=== PATIENT | male | born 1960 | race Caucasian/White ===

== ENCOUNTER → 2017-09-10 13:33 | Outpatient (CLI) | payer OTHER, SELFPAY ==
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
[2017-09-10 14:23] LABS: Basophils % 0.3 % (0.1-2.0); Eosinophils # 0.1 K/mm3 (0.0-0.4); Eosinophils % 1.9 % (0.1-12.0); Hematocrit 40.2 % (42.0-52.0); Hemoglobin 13.1 g/dL (14.1-18.0); Lymphocytes # 1.2 K/mm3 (0.7-4.5); Lymphocytes % 30.7 K/mm3 (10-50); Mean Corpuscular HGB Conc 32.5 g/dL (31.8-35.4); Mean Corpuscular Hemoglobin 28.7 pg (27.0-31.2); Mean Corpuscular Volume 88.4 fl (80-94); Mean Platelet Volume 7.2 fl (7.4-10.4); Monocytes # 0.2 K/mm3 (0.1-1.0); Monocytes % 6.4 % (1.7-9.3); Neutrophils # 2.3 K/mm3 (1.8-7.8); Neutrophils % 60.8 % (37.0-80.0); Platelet Count 185 K/mm3 (142-424); Red Blood Count 4.55 M/mm3 (4.60-6.20); Red Cell Distribution Width 12.9 % (11.5-17.5); White Blood Count 3.8 K/mm3 (4.8-10.8)
[2017-09-10 16:15] LABS: Anion Gap 13.1 mEq/L (5-15); Blood Urea Nitrogen 21 mg/dL (7-18); Carbon Dioxide 27 mmol/L (21.0-32.0); Chloride 106 mmol/L (98-107); Creatinine,Serum 0.85 mg/dL (0.70-1.30); Estimated Glomerular Filt Rate 93 ml/min (>60); GFR (African American) 113 ML/MIN (>60); Glucose 107 mg/dL (74-106); Potassium 4.1 mmoL/L (3.5-5.1); Sodium 142 mmol/L (136-145)
== END ==
PROVIDERS: Visit Provider Orthopaedic Surgery
DX: Z01.818 Encounter for other preprocedural examination (principal); S46.212A Strain of muscle, fascia and tendon of other parts of biceps, left arm, initial encounter; M25.512 Pain in left shoulder
CPT/HCPCS: 36415; 71046; 80048; 85025

== ENCOUNTER → 2017-11-15 09:29 | Outpatient (CLI) | payer OTHER, BC, SELFPAY ==
--- NOTE | 2017-11-15 09:31 | XR_ITS ---
XR shoulder LT min 2V Ordering Physician: William Jacob MD Patient Age: 57 years: Male HISTORY: ITS.REASON: S/P LEFT SHOULDER ARTHROSCOPY TECHNIQUE: 2 view left shoulder: Y view and Zanca view COMPARISON :01/16/2017 & March 2014 FINDINGS The clavicle is intact. The humeral head unremarkable on this view. There is a generous width of the AC joint it measures over 13-14 mm on today's view . Mild superior hypertrophy lipping from distal aspect of clavicle. The Y view shows normal glenohumeral relationships with scapula intact. Atelectasis likely accounts for accentuated markings at left lung base. IMPRESSION: A generous width of the AC joint. It measures 13-14 mm. Clavicle intact.
== END ==
PROVIDERS: Visit Provider Orthopaedic Surgery
DX: Z98.890 Other specified postprocedural states (principal); Z47.89 Encounter for other orthopedic aftercare
CPT/HCPCS: 73030

== ENCOUNTER 2018-07-17 07:00 | Outpatient (RCR) | payer OTHER, SELFPAY ==
--- NOTE | 2017-11-21 14:46 | HMH.OTOPEV ---
OT Inpatient Evaluation Rehab OT Outpatient Eval Start: 11/21/17 14:29 Freq: Status: Active Protocol: Document 11/21/17 14:30 TFRY (Rec: 11/21/17 14:45 TFRY [id number]) Electronically Signed By Patito Riojas OT 11/21/17 14:30 Outpatient Therapy Subjective History Subjective History THIS IS A 57 YEAR OLD RIGHT HANDED MALE REFERRED TO OCCUPATIONAL THERAPY PATIENT IS STATUS POST LEFT SHOULDER SUBACROMIAL DECOMPRESSION DISTAL CLAVICLE RESECTION AND BICEPS TENODESIS . PATIENT ORGINALLY INJURIED HIS SHOULDERON MARCH 05, 2014 AT WORK. PATIENT HAD SURGERY ON OCTOBER 01, 2017. Chief Complaint Pain Symptom Type Sharp Symptoms Relieved By Rest/Positioning Symptoms Aggravated By Physical Activity Prior Functional Limitations None Current Functional Limitations Dressing Sleeping Symptom Description Activity Dependent Level of pain today (0-10) 2 Pain scale - at its best (0-10) 0 Pain scale - at its worst (0-10) 10 Shoulder/Elbow Eval Shoulder Objective Measurements Palpation Tenderness tenderness shoulder exam standard left Shoulder Palpation Findings Tenderness Shoulder ROM Left Shoulder ROM Limitations Pain Shoulder Abduction Active Range of 60 Motion (degrees) Shoulder Abduction Passive Range of 65 Motion (degrees) Shoulder Flexion Active Range of Motion 90 (degrees) Query Text: Shoulder Flexion Passive Range of Motion 95 (degrees) Shoulder External Rotation Active Range 10 of Motion (degrees) Shoulder External Rotation Passive Range 15 of Motion (degrees) Shoulder Internal Rotation Active Range WFL of Motion (degrees) Shoulder Internal Rotation Passive Range WFL of Motion (degrees) pain with active ROM shoulder exam left standard pain with passive ROM shoulder exam left standard decreased ROM shoulder exam standard left Shoulder MMT Shoulder Strength Reason Not Measured Orthopedic Precautions Elbow Objective Measurements OT Outpatient Assessment Impairments Problems/Impairments Impaired Range of Motion Impaired Strength Impaired Dressing Subjective C/O Pain Prognosis Rehab Potential Good Clinical Impression Consistent with Diagnosis
--- NOTE | 2018-04-22 08:08 | HMH.RHREAS ---
Rehab Reassessment Rehab OP Re-assessment Start: 02/18/18 07:08 Freq: Status: Active Protocol: Document 04/22/18 07:06 TFRY (Rec: 04/22/18 08:08 TFRY [id number]) Electronically Signed By Patito Riojas OT 04/22/18 07:06 Rehab Re-assessment Subjective Subjective I STILL CAN'T SLEEP ON IT. Objective Objective Notes LEFT SHOULDER AROM - FLEXION - 0-130 ABDUCTION - 0-130 EXT. ROTATION - 0-50 INT. ROTATION - 0-65 LEFT SHOULDER PROM - FLEXION - 0-160 ABDUCTION - 0-130 EXT. ROTATION - 0-50 INT. ROTATION - 0-65 STRENGTH - LEFT SHOULDER - 3+/ 5 THROUGHOUT PAIN - PRESENTLY - 2; WORSE - 5/6 WITH CERTAIN MOVEMENTS REPORTS INDEPENDENCE WITH ADL' S Assessment Progress Assessment Progressing as Expected Assessment Notes ROM AND STRENGTH CONTINUE TO IMPROVE. Patient goals met STG'S - 6/7 LTG'S - 4/8 Goals Not Met AROM AND STRENGTH Revised Goals CONTINUE TO WORK ON IMPROVING AROM AND STRENGTH WHILE DECREASING PAIN IN LEFT SHOULDER Plan Plan CONTINUE OT WORKING ON UNMET GOALS Frequency of Therapy 2X A WEEK Duration of therapy 10 WEEKS Time and Billing Re-Eval Time 5 Re-Eval Billing Units 0 PHYSICIAN CERTIFICATION: I certify the specified therapy services for Laith Rodriguez are required, authorized, and reviewed every 30 days.
--- NOTE | 2018-06-24 08:51 | HMH.RHREAS ---
Rehab Reassessment Rehab OP Re-assessment Start: 02/18/18 07:08 Freq: Status: Active Protocol: Document 06/24/18 08:39 TFRY (Rec: 06/24/18 08:50 TFRY [id number]) Electronically Signed By Patito Riojas OT 06/24/18 08:39 Rehab Re-assessment Subjective Subjective It is getting stronger. Objective Objective Notes LEFT SHOULDER AROM - FLEXION - 0-162 ABDUCTION - 0-160 EXT. ROTATION - 0-55 INT. ROTATION - 0-75 LEFT SHOULDER PROM - FLEXION - 0-165 ABDUCTION - 0-165 EXT. ROTATION - 0-60 INT. ROTATION - 0-75 STRENGTH - LEFT SHOULDER - 4/5 THROUGHOUT PAIN - PRESENTLY - 2; WORSE - 5 WITH CERTAIN MOVEMENTS REPORTS INDEPENDENCE WITH ADL' S Assessment Progress Assessment Progressing as Expected Assessment Notes Increasing with strengthening exercises Patient goals met STG's - 6 out of 7 LTG's - 6 out of 7 Goals Not Met pain goals Revised Goals Patient to increase left shoulder strength to 5/5 throughout. Plan Plan Continue to work on increasing with strengthening left shoulder Frequency of Therapy 2x a week Duration of therapy 6 weeks Time and Billing Re-Eval Time 5 Re-Eval Billing Units 0 PHYSICIAN CERTIFICATION: I certify the specified therapy services for Laith Rodriguez are required, authorized, and reviewed every 30 days.
== END 2018-07-17 07:05 | disposition home or self-care (01) ==
LOC: OT 07:00
PROVIDERS: Family Provider Orthopaedic Surgery; PCP Orthopaedic Surgery; Visit Provider Orthopaedic Surgery
DX: Z47.89 Encounter for other orthopedic aftercare (principal); M25.512 Pain in left shoulder
CPT/HCPCS: 97014; 97110; 97140; 97164; 97165; G0283

== ENCOUNTER → 2018-07-17 08:08 | Outpatient (CLI) | payer OTHER, SELFPAY ==
--- NOTE | 2018-07-17 08:15 | XR_ITS ---
XR shoulder LT min 2V HISTORY: Left shoulder pain. Prior shoulder surgery ITS.REASON: grashy, axillary and supraspinatus views ORDERING PHYSICIAN: Bob Mitchell MD PATIENT AGE: 57 years Comparison: 11/15/2017 FINDINGS: There are mild hypertrophic changes at the acromioclavicular joint. No fracture or dislocation. Glenohumeral joint is unremarkable. A lucency is noted at the proximal shaft of the humerus at 7 mm and could be related to bicipital tendon transfer. Please correlate with surgical history. IMPRESSION: Mild osteoarthritic change at the AC joint otherwise negative
== END ==
PROVIDERS: PCP Emergency Medicine; Visit Provider Orthopaedic Surgery
DX: Z47.89 Encounter for other orthopedic aftercare (principal); M25.512 Pain in left shoulder
CPT/HCPCS: 73030

== ENCOUNTER → 2019-01-20 18:00 | Outpatient (CLI) | payer BC, SELFPAY | PROVIDERS: Visit Provider Podiatrist | DX: L60.8 Other nail disorders (principal) | CPT/HCPCS: 87102; 87206; 87220 ==

== ENCOUNTER 2019-01-28 13:53 | Outpatient (RCR) | payer BC, SELFPAY | END 2019-01-28 14:05 | disposition home or self-care (01) | LOC: OT 13:53 | PROVIDERS: Visit Provider Orthopaedic Surgery | DX: G56.02 Carpal tunnel syndrome, left upper limb (principal) | CPT/HCPCS: 97763 ==

== ENCOUNTER → 2019-02-16 13:16 | Outpatient (POV) | payer BC, SELFPAY | PROVIDERS: Visit Provider Specialist | DX: M79.642 Pain in left hand (principal); M79.641 Pain in right hand; R20.2 Paresthesia of skin | CPT/HCPCS: 95886; 95908 ==

== ENCOUNTER → 2019-05-26 13:06 | Outpatient (CLI) | payer OTHER, SELFPAY ==
--- NOTE | 2019-05-26 13:10 | XR_ITS ---
PROCEDURE: XR SHOULDER LT MIN 2V CLINICAL INDICATION: left shoulder pain COMPARISON: SHOU3L [id number] VIEWS from 03/12/2014 SHOU3L [id number] VIEWS from 01/16/2017 SHOULDCMLT XR shoulder LT min 2V from 11/15/2017 SHOULDCMLT XR shoulder LT min 2V from 07/17/2018 FINDINGS: There is no acute fracture dislocation or other focal bony lesion. Joint spaces are preserved. IMPRESSION: No acute findings. Dictated by: Ge Dobbs 05/26/2019 15:55 Electronically signed by Ge Dobbs in [place] 05/26/2019 15:55
== END ==
PROVIDERS: PCP Family Medicine; Visit Provider Orthopaedic Surgery
DX: M25.612 Stiffness of left shoulder, not elsewhere classified (principal)
CPT/HCPCS: 73030

== ENCOUNTER 2020-01-29 13:05 | Emergency (ER) | payer OTHER, SELFPAY ==
[2020-01-29 13:15] VITALS: BP 125/68; PULSE 70; RESP 19; TEMP 36.6; O2SAT 99; BMI 25.9
[2020-01-29 13:17] VITALS: BP 125/68; PULSE 70; RESP 19; TEMP 36.6; O2SAT 99; BMI 25.9
--- NOTE | 2020-01-29 13:26 | HMH.EDUTC ---
[facility] [place] Clinical Impression: Dog bite of right lower leg Qualifiers: Encounter type: initial encounter Qualified Code(s): S81.851A - Open bite, right lower leg, initial encounter Disposition: Home, Self-Care Condition on Discharge: Good Instructions: Animal Bites, DI for Dog Bite Additional Instructions: Keep the wounds clean and dry. Follow up with your regular doctor. Take the antibiotics as directed and apply the topical antibiotics as directed. Make sure you stay in contact with the health department regarding the health of the dog. Watch the puncture wounds for signs of worsening infection, such as worsening redness, drainage, swelling, etc. GO TO THE ER FOR ANY WORSENING SYMPTOMS Prescriptions: Sulfamethoxazole/Trimethoprim [Bactrim DS tablet] 1 each PO BID 10 Days #20 tab Transmission Status: Received by [facility] Mupirocin [Bactroban 2% Ointment 22gm tube] 1 applicatio TP TID 7 Days #1 tube Transmission Status: Received by [facility] clindamycin HCL [Clindamycin HCl 300mg Cap] 300 mg PO Q8 10 Days #30 cap Transmission Status: Received by [facility] Referrals: Jose Leavitt MD [Primary Care Provider] - Forms: Work/School Release Time of Disposition: 13:32 Medical Decision Making - Medical Records Medical records reviewed: No: I reviewed the patient's medical records. - Eliezer Inquiry Pt receiving controlled substance: No Vital Signs: 01/29/20 13:15 01/29/20 13:17 01/29/20 13:43 Temperature 97.9 F 97.9 F 97.9 F Temperature Source Oral Oral Oral Pulse Rate 70 Pulse Rate [Left Radial] 70 70 Respiratory Rate 19 19 19 Blood Pressure 125/68 Blood Pressure [Right Arm] 125/68 125/68 Blood Pressure Mean [Right Arm] 87 87 Blood Pressure Source Automatic Cuff Blood Pressure Source [Right Arm] Automatic Cuff Automatic Cuff Blood Pressure Position Sitting Blood Pressure Position [Right Arm] Sitting Sitting 02 Sat by Pulse Oximetry 99 99 Oxygen Delivery Method Room Air Room Air Room Air [facility] [place] HPI - General Stated complaint: [id number] dog bite right leg Time Seen by Provider: 01/29/20 13:26 Mode of Arrival: Ambulatory Source of Information: Patient Limitations: No Limitations Description of Symptoms (Recalled from Triage Doc. by RN): c/o dog bite on right leg. 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 He states that he was bit on the right lower leg. His tetanus immunization is up to date. - Related Data Home Medications Medication Instructions Recorded Confirmed coenzyme Q10 50 mg capsule 50 mg PO DAILY 06/18/17 07/08/19 multivitamin,[id number] 1 tab PO DAILY 06/18/17 07/08/19 magnesium oxide 400 mg PO DAILY cap 09/10/17 07/08/19 apixaban 5 mg tablet 5 mg PO #180 tab 01/20/19 07/08/19 flecainide 50 mg tablet 50 mg PO #90 tab 01/20/19 07/08/19 omega-3 fatty acids 500 mg capsule 500 mg PO DAILY 01/20/19 07/08/19 pantoprazole 40 mg tablet,delayed PO #90 tab 01/20/19 07/08/19 release metoprolol tartrate 25 mg tablet 25 mg PO DAILY 07/08/19 07/08/19 Previous Rx's Medication Instructions Recorded Mupirocin [Bactroban 2% Ointment 1 applicatio TP TID 7 Days #1 tube 01/29/20 22gm tube] Sulfamethoxazole/Trimethoprim 1 each PO BID 10 Days #20 tab 01/29/20 [Bactrim DS tablet] clindamycin HCL [Clindamycin HCl 300 mg PO Q8 10 Days #30 cap 01/29/20 300mg Cap] Allergies Allergy/AdvReac Type Severity Reaction Status Date / Time Penicillins Allergy Unknown SWELLING Verified 05/26/19 14:45 OF HANDS & FEET hydrocodone [From Lort
[2020-01-29 13:43] VITALS: BP 125/68; PULSE 70; RESP 19; TEMP 36.6; O2SAT 99
== END 2020-01-29 13:43 | disposition home or self-care (01) ==
PROVIDERS: Emergency Provider Nurse Practitioner Family; PCP Family Medicine
DX: S81.851A Open bite, right lower leg, initial encounter (principal); W54.0XXA Bitten by dog, initial encounter; Y92.69 Other specified industrial and construction area as the place of occurrence of the external cause; Y99.0 Civilian activity done for income or pay
CPT/HCPCS: 99201

== ENCOUNTER 2020-02-05 16:46 | Emergency (ER) | payer OTHER, SELFPAY ==
[2020-02-05 17:10] VITALS: BP 138/87; PULSE 66; RESP 14; TEMP 36.9; O2SAT 99; BMI 25.9
--- NOTE | 2020-02-05 17:22 | HMH.EDUTC ---
[facility] [place]ression: Dog bite of right lower leg Qualifiers: Encounter type: subsequent encounter Qualified Code(s): S81.851D - Open bite, right lower leg, subsequent encounter Cellulitis of lower extremity Qualifiers: Laterality: right Qualified Code(s): L03.115 - Cellulitis of right lower limb Disposition: Home, Self-Care Condition on Discharge: Good Additional Instructions: Keep the wounds clean and dry. Follow up with your regular doctor. Stop the oral bactrim (sulfamethazole/trimethaprim) and start the doxycycline. Continue to take the clindamycin and continue to apply the mupirocin (bactroban) topically. Make sure you stay in contact with the health department regarding the health of the dog. Watch the puncture wounds for signs of worsening infection, such as worsening redness, drainage, swelling, etc. GO TO THE ER FOR ANY WORSENING SYMPTOMS Prescriptions: Doxycycline Hyclate [Doxycycline 100mg Capsule] 100 mg PO Q12 10 Days #20 cap Transmission Status: Received by [facility] Referrals: Gorge Leavitt [facility] [Primary Care Provider] - Forms: Work/School Release Time of Disposition: 17:46 Medical Decision Making - Medical Records Medical records reviewed: No: I reviewed the patient's medical records. - Eliezer Inquiry Pt receiving controlled substance: No Vital Signs: 02/05/20 17:10 02/05/20 17:59 Temperature 98.4 F 98.4 F Temperature Source Oral Oral Pulse Rate 66 Pulse Rate [Radial] 66 Respiratory Rate 14 14 Blood Pressure 138/87 Blood Pressure [Right Arm] 138/87 Blood Pressure Mean [Right Arm] 104 Blood Pressure Source Automatic Cuff Blood Pressure Source [Right Arm] Automatic Cuff Blood Pressure Position Sitting Blood Pressure Position [Right Arm] Sitting 02 Sat by Pulse Oximetry 99 Oxygen Delivery Method Room Air Room Air Orders (Tests/Meds): ORDERS Category Date Time Status Wound Culture and Gram Stain Stat Micro 02/05/20 17:47 Results [facility] [place] - General Stated complaint: WC [id number]@1200 injuredR Leg dog bite Time Seen by Provider: 02/05/20 17:22 Mode of Arrival: Ambulatory Source of Information: Patient Limitations: No Limitations Description of Symptoms (Recalled from Triage Doc. by RN): follow up on dog bite HEENT Symptoms (Recalled from RN notes): No Resp Symptoms (Recalled from RN notes): No Skin Symptoms (Recalled from RN notes): Yes MS Symptoms (Recalled from RN notes): No Functional Status (Recalled from RN notes): wnl - History of Present Illness Provider Complaint: He is back to have the dog bite checked. He states that it is getting red around the site. He states that he has been taking the medication as prescribed. He denies any fever or chills. - Related Data Home Medications Medication Instructions Recorded Confirmed coenzyme Q10 50 mg capsule 50 mg PO DAILY 06/18/17 07/08/19 multivitamin,eq-zjdh-[id number] 1 tab PO DAILY 06/18/17 07/08/19 magnesium oxide 400 mg PO DAILY cap 09/10/17 07/08/19 apixaban 5 mg tablet 5 mg PO #180 tab 01/20/19 07/08/19 flecainide 50 mg tablet 50 mg PO #90 tab 01/20/19 07/08/19 omega-3 fatty acids 500 mg capsule 500 mg PO DAILY 01/20/19 07/08/19 pantoprazole 40 mg tablet,delayed PO #90 tab 01/20/19 07/08/19 release metoprolol tartrate 25 mg tablet 25 mg PO DAILY 07/08/19 07/08/19 Previous Rx's Medication Instructions Recorded Mupirocin [Bactroban 2% Ointment 1 applicatio TP TID 7 Days #1 tube 01/29/20 22gm tube] Sulfamethoxazole/Trimethoprim 1 each PO BID 10 Days #20 tab 01/29/20 [Bactrim DS tablet] clindamycin HCL [Clindamycin HCl 300 mg PO Q8 10 Days #30 cap 01/29/20 300mg Cap] Doxycycline Hyclate [Doxycycline 100 mg PO Q12 10 Days #20 cap 02/05/20 100mg Capsule] Allergies Allergy/AdvReac Type Severity Reaction Status Date / Time Penicillins Allergy Unknown SWELLING Verified 05/26/19 14:45 OF HANDS & FEET
[2020-02-05 17:59] VITALS: BP 138/87; PULSE 66; RESP 14; TEMP 36.9; O2SAT 99
== END 2020-02-05 18:00 | disposition home or self-care (01) ==
PROVIDERS: Emergency Provider Nurse Practitioner Family; PCP Family Medicine
DX: L03.115 Cellulitis of right lower limb (principal); S81.851D Open bite, right lower leg, subsequent encounter; I48.20 Chronic atrial fibrillation, unspecified; E03.9 Hypothyroidism, unspecified; K21.9 Gastro-esophageal reflux disease without esophagitis; F41.8 Other specified anxiety disorders; Z87.891 Personal history of nicotine dependence; Z79.899 Other long term (current) drug therapy
CPT/HCPCS: 87070; 87077; 87186; 87205; 99201

== ENCOUNTER 2020-10-15 21:59 | Emergency (ER) | payer OTHER, SELFPAY ==
[2020-10-15 22:20] VITALS: BP 144/90; PULSE 72; RESP 18; TEMP 36.8; O2SAT 96; BMI 25.6
[2020-10-15 22:24] VITALS: BMI 25.6
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
--- NOTE | 2020-10-15 22:30 | PC.NURSE ---
pt gone to radiology.
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
[2020-10-15 23:13] VITALS: BP 139/81; PULSE 72; RESP 18; TEMP 36.8; O2SAT 96
== END 2020-10-15 23:18 | disposition home or self-care (01) ==
PROVIDERS: Emergency Provider Emergency Medicine; PCP Family Medicine
DX: S16.1XXA Strain of muscle, fascia and tendon at neck level, initial encounter (principal); G44.319 Acute post-traumatic headache, not intractable; V53.5XXA Driver of pick-up truck or van injured in collision with car, pick-up truck or van in traffic accident, initial encounter; Y92.414 Local residential or business street as the place of occurrence of the external cause
CPT/HCPCS: 70450; 72125; 99282

== ENCOUNTER → 2020-11-28 07:02 | Outpatient (CLI) | payer BC, SELFPAY | DX: Z20.822 Contact with and (suspected) exposure to COVID-19 (principal) | CPT/HCPCS: U0003 ==

== ENCOUNTER → 2021-02-02 09:02 | Outpatient (CLI) | payer OTHER, SELFPAY ==
--- NOTE | 2021-02-02 09:15 | CA_ITS ---
APPROVED REPORT Clinical Services Consultant: CT Laterality: Bilateral Indications: tinnitus Doppler Spectral Velocity Analysis ECA (R) 120.10/ cm/s ECA (L) 132.80/ cm/s dICA (R) 71.60/32.10 cm/s dICA (L) 58.60/25.00 cm/s Pool (R) 70.00/33.70 cm/s Pool (L) 51.90/18.70 cm/s pICA (R) 55.10/21.40 cm/s pICA (L) 64.70/18.70 cm/s dCCA (R) 75.10/21.20 cm/s dCCA (L) 94.30/21.70 cm/s pCCA (R) 105.90/26.30 cm/s pCCA (L) 108.50/29.90 cm/s Vert (R) 64.20/ cm/s Vert (L) 57.40/ cm/s ICA/CCA 1.00 ICA/CCA 0.70 Findings Duplex evaluation demonstrates stenosis of the right proximal internal carotid artery <20%. Duplex evaluation demonstrates stenosis of the left proximal internal carotid artery <20%. Duplex evaluation demonstrates antegrade flow of the bilateral Vertebral Arteries. Conclusion Duplex evaluation demonstrates stenosis of the right proximal internal carotid artery <20%. Duplex evaluation demonstrates stenosis of the left proximal internal carotid artery <20%. Duplex evaluation demonstrates antegrade flow of the bilateral Vertebral Arteries. Electronically signed by : Jamil Barkley MD 02/02/2021 16:17:24
== END ==
PROVIDERS: PCP Family Medicine; Visit Provider Family Medicine
DX: H93.13 Tinnitus, bilateral (principal)
CPT/HCPCS: 93880

== ENCOUNTER → 2021-04-07 13:51 | Outpatient (CLI) | payer BC, SELFPAY ==
--- NOTE | 2021-04-07 13:56 | XR_ITS ---
PROCEDURE INFORMATION: Exam: XR Left Knee Exam date and time: 04/07/2021 1:56 PM Age: 60 years old Clinical indication: Pain; Knee; Left; Additional info: Lt knee pain TECHNIQUE: Imaging protocol: XR Left knee. Views: 4 or more views. COMPARISON: No relevant prior studies available. FINDINGS: Bones/joints: Tricompartmental joint space narrowing and osteophyte formation consistent with degenerative changes. Joint space narrowing more severe in the medial compartment and patellofemoral compartment. There is no evidence of acute fracture.There is no evidence of malalignment or dislocation. Soft tissues: Normal. IMPRESSION: 1. Tricompartmental joint space narrowing and osteophyte formation consistent with degenerative changes. Joint space narrowing more severe in the medial compartment and patellofemoral compartment. 2. There is no evidence of acute fracture.There is no evidence of malalignment or dislocation.
== END ==
PROVIDERS: PCP Family Medicine; Visit Provider Orthopaedic Surgery
DX: M25.562 Pain in left knee (principal)
CPT/HCPCS: 73564

== ENCOUNTER → 2021-05-03 12:45 | Outpatient (CLI) | payer BC, SELFPAY ==
--- NOTE | 2021-05-03 12:46 | MR_ITS ---
PROCEDURE INFORMATION: Exam: MR Left Lower Extremity Joint Without Contrast, Knee Exam date and time: 05/03/2021 12:46 PM Age: 60 years old Clinical indication: Pain; Knee; Left; Additional info: Lt knee pain TECHNIQUE: Imaging protocol: MR of the Left lower extremity joint without contrast. Exam focused on the knee. COMPARISON: CR XR KNEE LT 4V 04/07/2021 2:25 PM FINDINGS: Bones and cartilage: A protruberant osteophyte along the posterior aspect of the medial tibial plateau near the midline measures 1.6 cm. An adjacent osteochondral body measures 1 cm. There is no acute fracture or dislocation. No aggressive bone lesions are present. A benign bone island is incidentally noted. There is grade IV (out of IV) full-thickness cartilage loss involving a significant portion of the lateral patellar facet extending into the medial patellar facet at the midportion of the patella. This may be due to severe primary osteoarthritis, patellar maltracking, or CPPD arthropathy. There is mild lateral subluxation of the patella. An osteochondral body adjacent to the medial femoral condyle anteriorly measures 5 mm (series 4/image 7). Joint spaces: A moderate joint effusion involves the knee. Periarticular cysts: A small popliteal cyst is present. A small ganglion or synovial cyst decompresses into the anterior compartment of the calf from the tibiofibular joint. Medial meniscus: The medial meniscus shows no evidence of tear. Lateral meniscus: A probable horizontal tear involves the anterior horn of the lateral meniscus. The tear extends to the superior meniscal surface on series 4/image 21. Anterior cruciate ligament: The anterior cruciate ligament is intact. There is a possible additional osteochondral body in the intercondylar notch region located inferior to the anterior cruciate ligament (series 4/image 15). Posterior cruciate ligament: The posterior cruciate ligament is intact. Medial capsule and supporting structures: The medial collateral ligament is intact. Lateral capsule and supporting structures: The lateral collateral ligament complex is intact. Extensor mechanism of knee: Moderate tendinosis involves the quadriceps and patellar tendons. Muscles: Unremarkable. Soft tissues: A moderate amount of edema involves the anterior knee subcutaneous fat. IMPRESSION: 1. Significant grade IV (out of IV) full-thickness cartilage loss involving the lateral patellar facet extending into the medial patellar facet at the midportion of the patella, which may be due to severe primary osteoarthritis, patellar maltracking, or CPPD arthropathy. 2. Probable horizontal tear of the lateral meniscus anterior horn. 3. Intra-articular osteochondral bodies with a prominent protruberant osteophyte along the posterior aspect of the medial tibial plateau. 4. Moderate tendinosis of the quadriceps and patellar tendons.
== END ==
PROVIDERS: PCP Family Medicine; Visit Provider Orthopaedic Surgery
DX: M17.12 Unilateral primary osteoarthritis, left knee (principal); M25.562 Pain in left knee; G89.29 Other chronic pain
CPT/HCPCS: 73721

== ENCOUNTER → 2021-05-10 13:09 | Outpatient (CLI) | payer BC, SELFPAY | PROVIDERS: PCP Family Medicine; Visit Provider Nurse Practitioner | DX: Z20.822 Contact with and (suspected) exposure to COVID-19 (principal) | CPT/HCPCS: C9803; U0003; U0005 ==

== ENCOUNTER 2021-06-01 16:00 | Outpatient (RCR) | payer BC, SELFPAY | END 2021-06-01 16:05 | disposition home or self-care (01) | LOC: PT 16:00 | PROVIDERS: PCP Family Medicine; Visit Provider Orthopaedic Surgery | DX: M17.12 Unilateral primary osteoarthritis, left knee (principal); M23.307 Other meniscus derangements, unspecified meniscus, left knee | CPT/HCPCS: 97110; 97163 ==

== ENCOUNTER → 2021-06-28 16:50 | Outpatient (CLI) | payer BC, SELFPAY ==
[2021-06-28 18:05] LABS: Alanine Aminotransferase 22 U/L (12-78); Albumin Level 4.1 g/dl (3.5-5.0); Albumin/Globulin Ratio 1.6 (1.1-1.8); Alkaline Phosphatase 64 U/L (38-126); Anion Gap 7.4 mEq/L (5-15); Aspartate Amino Transferase 33 U/L (17-59); Bilirubin,Total 0.5 mg/dl (0.2-1.3); Blood Urea Nitrogen 19 mg/dl (9-20); Calcium 8.7 mg/dl (8.4-10.2); Carbon Dioxide 27 mmol/L (22.0-30.0); Chloride 104 mmol/L (98-107); Estimated Glomerular Filt Rate 99 ml/min (>60); GFR (African American) 119 ML/MIN (>60); Globulin 2.6 g/dL (1.3-3.2); Glucose 98 mg/dl (74-100); Potassium 4.4 mmoL/L (3.5-5.1); Sodium 134 mmol/L (136-145); Total Protein,Serum 6.7 g/dl (6.3-8.2)
[2021-06-28 18:17] LABS: Basophils % 0.7 % (0.1-2.0); Eosinophils # 0.1 K/mm3 (0.0-0.4); Eosinophils % 1.2 % (0.1-12.0); Hematocrit 44.7 % (42.0-52.0); Lymphocytes # 1.1 K/mm3 (0.7-4.5); Lymphocytes % 19.7 % (10-50); Mean Corpuscular HGB Conc 33.4 g/dL (31.8-35.4); Mean Corpuscular Hemoglobin 30.1 pg (27.0-31.2); Mean Corpuscular Volume 90.1 fl (80-94); Mean Platelet Volume 7.7 fl (7.4-10.4); Monocytes # 0.4 K/mm3 (0.1-1.0); Monocytes % 7.3 % (1.7-9.3); Neutrophils # 4.1 K/mm3 (1.8-7.8); Neutrophils % 71.2 % (37.0-80.0); Platelet Count 206 K/mm3 (142-424); Red Blood Count 4.97 M/mm3 (4.60-6.20); White Blood Count 5.7 K/mm3 (4.8-10.8)
== END ==
PROVIDERS: PCP Family Medicine; Visit Provider Orthopaedic Surgery
DX: Z01.818 Encounter for other preprocedural examination (principal); M25.562 Pain in left knee
CPT/HCPCS: 80053; 85025

== ENCOUNTER → 2021-06-29 13:02 | Outpatient (CLI) | payer BC, SELFPAY ==
--- NOTE | 2021-06-29 13:10 | ECG_ITS ---
APPROVED REPORT Exam: Resting ECG HR:68 bpm ECG Measurements Heart Rate 68 AXES WV 180 P 90 QRSd 104 QRS 33 QT 383 T 55 QTc 401 Conclusion SINUS RHYTHM NORMAL ECG UNCONFIRMED REPORT Electronically signed by : Dusty Moran MD 06/30/2021 19:22:24
== END ==
PROVIDERS: PCP Family Medicine; Visit Provider Orthopaedic Surgery
DX: Z01.810 Encounter for preprocedural cardiovascular examination (principal); M25.562 Pain in left knee
CPT/HCPCS: 93005

== ENCOUNTER → 2021-07-04 08:46 | Outpatient (CLI) | payer BC, SELFPAY | PROVIDERS: Visit Provider Orthopaedic Surgery | DX: Z01.818 Encounter for other preprocedural examination (principal); Z11.52 Encounter for screening for COVID-19 | CPT/HCPCS: C9803; U0003; U0005 ==

== ENCOUNTER 2021-07-06 10:51 | Day surgery (SDC) | payer BC, SELFPAY ==
[2021-07-03 14:02] VITALS: BMI 25.7
[2021-07-06] VITALS (10 sets, daily range): BP systolic 105–137; BP diastolic 64–101; PULSE 59–71; RESP 14–18; TEMP 36.3–43; O2SAT 94–100
--- NOTE | 2021-07-06 14:48 | P.PN_ITS ---
[facility] Anesthesia Checklist - Patient Identification Patient Identification: Arm Band, Verbal (Name & ) - Structural Data Admitted From: Home Planned Operative Procedure/s: Left Knee Arthroscopy Consent for Planned Operative Procedure(s) Verified: Yes Verified Documents: Surgical Consent - NPO Status Verified Time NPO: 00:00 - Chart Verification Results Verified: CBC, BMP - Additional verifications Anesthesia Reactions: No Hx Blood Transfusions: No Blood Transfusion Reaction: No - Cardiovascular Assessment Heart Sounds: S1 & S2 Pulse Rhythm: Regular - Airway Assessment C-Spine Mobility Assessed: Yes TMJ Mobility Assessed: Yes Dentition: Good Dentition - Anesthesia Plan Anesthesia Risk discussed: Yes ASA Class: III Anesthesia Type: General [facility] History I have reviewed the patient's past medical history: Yes Medical History: Reports:: Anxiety, Atrial Fibrillation, Cancer, Deep Vein Thrombosis, Depression, Gastroesophageal Reflux Disease(GERD) Denies:: Diabetes Mellitus Type 1, Diabetes Mellitus Type 2, Internal Pacemaker, MRSA, Seizures *Have you ever received a pneumonia vaccine?: No *Have you received a flu vaccine this season?: Yes Other Medical History: Reports: Arthritis, Hypothyroidism. Denies: Blood Transfusion Reaction Anesthesia experience/problems:: none Laterality Cases: Left: Arthroscopy Shoulder Other Surgeries: Yes: Cancer Surgery, Cardiac Catheterization, Cardiac Surgery, Colon Resection, Other. No: Pacemaker Amputation: No Fractures: No - *Social History Last grade of school completed: Some college Smoking Status: Former smoker Tobacco Type: cigarettes #Yrs smoked (if former smoker): 15 Smoking End Date: 2010 Alcohol Intake: never Alcohol Intake Frequency:: a few times a month Substance Use Type: denies use *Occupational Status:: employed Housing: house Household Members: spouse *Travel in the last 8 weeks: None - Psychiatric History Pschychiatric History:: Reports:: Anxiety, Depression Family Hx:: Cancer, Hypertension, Stroke
--- NOTE | 2021-07-06 15:57 | HMH.ANESI ---
[facility] Anesthesia Record Part I Intake, IV Amount: 700 Estimated blood loss (mL): 10 Urine output (mL): 0 Blood Pressure: 108/64 SaO2: 94 Pulse Rate: 61 Respiratory Rate: 14 Temperature: 98.8 F Patient is:: Drowsy Stable to PACU at:: 15:56
--- NOTE | 2021-07-06 23:50 | HMH.OPNOTE ---
Date of procedure: 07/06/21 Pre-op Diagnosis:: 1. Lateral meniscal tear, LEFT knee 2. Osteoarthritis, LEFT knee 3. Intra-articular loose body, left knee Post-op Diagnosis:: 1. Degenerative tear anterior horn of medial meniscus, LEFT knee 2. Osteoarthritis, LEFT knee 3. Pathological medial plica, LEFT knee Procedure performed:: 1. Examination of LEFT knee under anesthesia 2. Partial medial meniscectomy, LEFT knee 3. Chondroplasty, LEFT knee 4. Resection of medial plica, LEFT knee Surgeon:: Bob Mitchell MD Tunnel Kiln Repairer(s):: Shanthi Ruby PA-C DEBRANDER:: Other (Tj Arroyo) Anesthesia: LMA Estimated blood loss (mL): 0 Clinical Note:: The patient is a 60-year-old male with chronic LEFT knee pain unresponsive to conservative management and evidence of a lateral meniscal tear and early arthritic changes and possible loose body on imaging. Patient?s symptoms and clinical signs are consistent with the above diagnosis. Resection of the torn lateral meniscus, removal of loose body, chondroplasty, and debridement is indicated to relieve the pain and improve function of the knee. Please refer to my office notes for full details. Operative findings:: Examination of the left knee under anesthesia, showed a stable knee joint. There is small knee joint effusion. Knee range of motion is from 0-130? of flexion. Operative findings showed diffuse grade 3-4 degenerative changes over the patellar articular surface, grade 2-3 changes over the lateral tibial plateau. Grade 2 changes were noted over the trochlea and medial femoral condyle. A fairly large thickened and hyperemic medial plica was noted and its corresponding abrasion area on the medial femoral condyle noted as well. The medial meniscus had a degenerative tear involving the anterior horn. The lateral meniscus was noted to be intact without any tears. The medial tibial plateau articular surface is well preserved. The anterior cruciate ligament and posterior cruciate ligaments were intact. No loose bodies were noted. Moderate synovitis was noted in the knee. Operative note:: On the day of the procedure the patient was met in the preoperative area and positively identified. A physical examination was performed and documented. The operative site and side was marked and initialed by me. I again discussed the diagnosis, management options including both nonsurgical and surgical. I discussed the proposed surgical procedure, risks and benefits and alternatives in detail. The complications discussed include but are not limited to infection, injury to nerves and blood vessels, injury to the ligaments and tendons, knee stiffness, arthrofibrosis, incomplete relief, incomplete functional recovery, DVT, PE, CRPS, complications related to anesthesia including heart attack, stroke and even . I have also discussed about the likely need for further surgery in future. I told him that there were no guarantees with surgery; he could be no better or even worse. We also discussed the postoperative recovery and rehabilitation protocol. I believe the patient to be well informed about the proposed surgery. I told him that it would take few months for full recovery of the knee after surgery. He expressed a full understanding and wished to proceed with the planned surgery. Patient understood the risks, agreed to proceed with surgery and no guarantees or assurances were given or implied. Patient was brought to the operating room and placed supine on the operating table. All the bony prominences were appropriately padded. A general anesthesia was administered by the gallery host. A well-padded tourniquet cuff was placed over the left upper thigh. Examination of the left knee under anesthesia was performed. A small knee effusion was noted. Knee range of motion was 0-130 degrees of flexion. Knee joint is noted to be ligamentously stable. The left knee was then placed in a leg cortes and prepped and draped in the usual sterile fa
--- NOTE | 2021-07-07 08:49 | P.PN_ITS ---
[facility] Anesthesia Record Part II Discharge Time: 16:26 Destination: Home PACU nurse assessment reviewed?: Yes Patient Condition:: Good Anesthesia Complications:: None none Swallowing reflex intact?: Yes Cyanosis?: No Blood Pressure: 132/68 Pulse Rate: 70 Temperature: 97.8 F Mental Status: Alert & Oriented Pain level:: 4 Nausea and/or vomitting:: None Intake, IV Amount: 0
[2021-07-07 08:50] VITALS: BP 132/68; PULSE 70; TEMP 36.6
== END 2021-07-06 17:05 | disposition home or self-care (01) ==
LOC: OR 10:55
PROVIDERS: PCP Family Medicine; Visit Provider Orthopaedic Surgery
PROC: (CPT 29870; principal; 2021-07-06 12:45)
DX: M23.204 Derangement of unspecified medial meniscus due to old tear or injury, left knee (principal)
CPT/HCPCS: 29881; 96374; J2405

== ENCOUNTER → 2021-07-11 08:44 | Outpatient (CLI) | payer BC, SELFPAY ==
--- NOTE | 2021-07-11 08:58 | XR_ITS ---
FINAL REPORT CLINICAL HISTORY: pos-op left knee arthroscopy on COMPARISON: April 07, 2021 FINDINGS: LEFT KNEE: Three views of the left knee were obtained. There is no acute fracture or dislocation. There are mild degenerative changes. Persistent posterior calcifications favor loose bodies. There are calcifications in the region of Hoffa's fat pad. There is a large joint effusion. IMPRESSION: Large joint effusion with other chronic findings as above. Reviewed, Interpreted and Dictated by Rudy Rubin III, MD Transcribed by Shelli Hamilton Authenticated by Rudy Rubin III, MD on 07/11/2021 11:08:49 AM [facility]
== END ==
PROVIDERS: PCP Family Medicine; Visit Provider Orthopaedic Surgery
DX: M23.307 Other meniscus derangements, unspecified meniscus, left knee (principal)
CPT/HCPCS: 73562

== ENCOUNTER 2021-07-26 16:27 | Outpatient (RCR) | payer BC, SELFPAY ==
--- NOTE | 2021-07-26 17:13 | HMH.PTOPEV ---
PT Outpatient Evaluation Rehab PT Outpatient Evaluation Start: 07/26/21 16:57 Freq: Status: Active Protocol: Document 07/26/21 16:57 CRYSTAL (Rec: 07/26/21 17:13 CRYSTAL [id number]) Electronically Signed By Mauricio Faulkner, PT 07/26/21 16:57 Outpatient Therapy Subjective History Subjective History Patient is a 60 year old male presenting to outpatient PT S/ P L knee scope performed with chondroplasty - resection of medial plica. I really don't feel like I need PT. I've been feeling great since the surgery. I feel like I could go back to full duty at work without any problems right now. No other comorbidities to report. Level of pain today (0-10) 0 Pain scale - at its best (0-10) 0 Pain scale - at its worst (0-10) 0 Hip/Knee Eval Gait Observation General Gait Pattern Observation No Deviations/Normal Assistive Device Assistive Devices None / NA MMT left Hip Strength Reason Not Measured WFL Knee Strength Reason Not Measured WFL ROM Hip ROM Reason Not Measured Within Functional Limits Knee ROM Reason Not Measured Within Functional Limits Special Tests Knee Valgus Stress Test Negative Left Knee Varus Stress Test Negative Left Outpatient Therapy Assessment Prognosis Rehab Potential Innapropriate for Skilled Therapy Comment Patient requested to not have PT. Patient reported he would like to continue with HEP from previous episode of PT. PT could not find any objective deficits indicating necessity for skilled PT services. Clinical Impression Consistent with Diagnosis Yes Outpatient Therapy Plan of Care Addendums This patient is a candidate for social No or vocational rehab? Patient/Guardian verbally acknowledges No: Patient opts to not understanding of treatment program and continue with PT consents to further treatment? Patient/Guardian verbally acknowledges No understanding of diagnosis, prognosis and goals for treatment? G -code Required No Eval Complexity PT Charges 98244 - Low Complexity Shoulder/Elbow Eval Shoulder Objective Measurements Elbow Objective Measurements PHYSICIAN CERTIFICATION: I certify the specified therapy services for Laith Rodriguez are req
== END 2021-07-26 16:30 | disposition home or self-care (01) ==
LOC: PT 16:27
PROVIDERS: PCP Family Medicine; Visit Provider Orthopaedic Surgery
DX: M17.12 Unilateral primary osteoarthritis, left knee (principal); M23.307 Other meniscus derangements, unspecified meniscus, left knee; M23.42 Loose body in knee, left knee; G89.29 Other chronic pain; M67.52 Plica syndrome, left knee
CPT/HCPCS: 97163

== ENCOUNTER → 2022-06-06 11:33 | Outpatient (CLI) | payer BC, SELFPAY ==
--- NOTE | 2022-06-06 11:43 | XR_ITS ---
FINAL REPORT CLINICAL HISTORY: knee pain FINDINGS: Left foot Three views were obtained. There is no acute fracture or dislocation. The joint spaces appear normal. No soft tissue abnormality is identified. IMPRESSION: No acute process. Reviewed, Interpreted and Dictated by Rudy Rubin III, MD Transcribed by Alfreda Bhakta Authenticated and [facility]
== END ==
PROVIDERS: PCP Family Medicine; Visit Provider Orthopaedic Surgery
DX: M25.562 Pain in left knee (principal); M25.561 Pain in right knee
CPT/HCPCS: 73562

== ENCOUNTER → 2022-09-26 09:07 | Outpatient (CLI) | payer BC, SELFPAY ==
--- NOTE | 2022-09-26 09:13 | US_ITS ---
FINAL REPORT CLINICAL HISTORY: HYPOTHYROIDISM FINDINGS: US THYROID/HEAD OR NECK SOFT TISSUE Limited sonographic images of the thyroid were obtained. The thyroid is enlarged with a heterogeneous echotexture. The right lobe of the thyroid measures 5.2 x 2.5 x 3.3 cm. No mass is identified. The left lobe of the thyroid measures 4.4 x 2.0 x 2.0 cm. There is a mostly cystic nodule measuring 8 x 8 x 6 mm consistent with TI-RADS category 1. The isthmus measures 0.77 cm. IMPRESSION: Enlarged and heterogeneous thyroid, may represent a thyroiditis or goiter. Left thyroid lobe nodule consistent with TI-RADS category 1. No follow-up is required. Reviewed, Interpreted and Dictated by Rudy Rubin III, MD Transcribed by Alfreda Bhakta Authenticated and [facility]
== END ==
PROVIDERS: PCP Psychiatry & Neurology Sleep Medicine; Visit Provider Family Medicine
DX: E03.9 Hypothyroidism, unspecified (principal)
CPT/HCPCS: 76536

== ENCOUNTER → 2022-12-20 12:33 | Outpatient (CLI) | payer BC, SELFPAY ==
--- NOTE | 2022-12-20 12:33 | MR_ITS ---
FINAL REPORT CLINICAL HISTORY: pain. HISTORY KNEE SURGERY 2021 FOR TORN MENISCUS. PAIN WHEN SITTING. KNEE INSTABILITY. COMPARISON: 05/03/2021 FINDINGS: Multiplanar MR imaging of the right knee was performed without contrast. The medial meniscus is intact. There is degenerative signal in the lateral meniscus with a probable tear in the anterior horn, stable since the prior MRI. The anterior and posterior cruciate ligaments are intact. The medial collateral ligament and lateral ligamentous complex are intact. The patellar and quadriceps tendons are intact. There is no evidence of fracture. There is severe patellar chondromalacia, unchanged. A small joint effusion is seen. The musculature is intact. A small popliteal cyst is present. There is a loose body, 9 mm in length, posterior to the posterior cruciate ligament, unchanged from the prior MRI. IMPRESSION: Degenerative signal lateral meniscus with a probable tear of the anterior horn, stable since the prior MRI of 2020. Severe patellar chondromalacia, small joint effusion, also stable. Loose body 9 mm posterior to the PCL, also unchanged. Reviewed, Interpreted and Dictated by Rudy Rubin III, MD Transcribed by Corina Montana Authenticated and [facility]
== END ==
PROVIDERS: PCP Psychiatry & Neurology Sleep Medicine; Visit Provider Orthopaedic Surgery
DX: M25.562 Pain in left knee (principal); G89.29 Other chronic pain
CPT/HCPCS: 73721

== ENCOUNTER → 2023-02-06 14:26 | Outpatient (CLI) | payer BC, SELFPAY ==
--- NOTE | 2023-02-06 14:34 | CT_ITS ---
FINAL REPORT CLINICAL HISTORY: H/O TOBACCO USE Quit 12 years ago 1 ppd x 26 years COMPARISON: None FINDINGS: CT CHEST LOW DOSE SCREENING HISTORY: Screening exam for lung cancer. Former smoker, 26 pack year smoking history DOSE: CTDIvol: 2.9 mGy, DLP: 105.25 mGy*cm COMPARISON: None . TECHNIQUE: Axial CT without IV contrast administration using low dose protocol FINDINGS: No acute lung disease is present . There are several small calcified granulomas present in the lung roberto bilaterally. There is a nodular density in the right lower lobe that measures 3 mm in diameter, best seen on image #42. There is another 3 mm right lower lobe nodule identified, best seen in image #54. No pleural or pericardial effusion is seen . No adenopathy or mass lesion is present . IMPRESSION: 2 small nodules identified in the right lower lobe, noncalcified. LUNG RADS CATEGORY 2 RECOMMENDATION: 12 month LDCT follow up Reviewed, Interpreted and Dictated by Rudy Rubin III, MD Transcribed by Corina Montana Authenticated and [facility]
== END ==
PROVIDERS: PCP Psychiatry & Neurology Sleep Medicine; Visit Provider Family Medicine
DX: Z87.891 Personal history of nicotine dependence (principal)
CPT/HCPCS: 71271

== ENCOUNTER 2023-11-20 07:29 | Outpatient (CLI) | payer BC, SELFPAY ==
--- NOTE | 2023-11-20 | CT_ITS ---
FINAL REPORT TECHNIQUE: Thin section axial images were obtained through the lungs using a low-dose technique per lung cancer screening protocol. Reconstruction images were obtained using the axial data. Exam was performed using dose reduction technique. CLINICAL HISTORY: lung screening former smoker x 14 years 1 ppd x 20 years COMPARISON: 02/06/2023 FINDINGS: CTDLvol: 2.90 DLP: 108.90 Lungs: There is evidence of prior granulomatous disease. There are several noncalcified right lower lobe nodules. A 3 mm nodule seen on image 39 of series 3 is stable. A 4 mm nodule on image 63 is stable. There are no new nodules. No areas of consolidation. Lymph nodes: No thoracic lymphadenopathy. Mediastinum: Heart size is normal. Pleura/pericardium: No pleural or pericardial effusion. Other: No acute abnormality in the upper abdomen. IMPRESSION: Stable pulmonary nodules Lung RADS: 2 Recommendation: 12 month follow-up low-dose CT chest recommended. Reviewed, Interpreted and Dictated by Barbara Horton MD Transcribed by Anastasiia Cruz Authenticated and [facility]
== END 2023-11-20 23:59 | disposition home or self-care (01) ==
LOC: RAD 07:29
PROVIDERS: PCP Family Medicine; Visit Provider Family Medicine
DX: Z87.891 Personal history of nicotine dependence (principal)
CPT/HCPCS: 71271

== ENCOUNTER 2025-01-06 06:58 | Outpatient (CLI) | payer BC, SELFPAY ==
--- OUTSIDE RECORDS SUMMARY | 2023-10-31 10:00 | XMS_ITS ---
Author Organization [facility] Address [address] [place] [address] [address] [facility] [address] [place] [id number] Care Team Providers Care Defensive Driving Instructor Name Role Phone Yaya Martins Primary Care Provider [phone] Sixto Rasmussen [phone] REASON FOR VISIT 6 mo ck Encounters Encounter Location Date Provider Diagnosis [facility] [address] [facility] [address] [facility] [address] [place] [id number] 10/31/2023 Sixto Rasmussen Plan Of Treatment Next Appt Details Provider Name:Sixto Paiz er, 04/16/2025 09:30:00 AM, [address] [facility] [address] [facility], [address], [place], [id number], Progress Notes * NELLY CORTEZDOB:1960 (64 yo M)Acc No.[id number]:10/31/2023 Progress Notes Patient: NELLY DUDLEY Provider: Sixto Rasmussen M.D. :1960 A ge:63 Y S ex:Male Date:10/31/2023 Address:[address] [place] [address] [id number] Pcp:Yaya Martins Subjective: * Chief Complaints: * 1 . 6 mo ck. * Medical History: Objective: * Vitals: Assessment: Plan: * Treatment: * Images: Billing Information: * Visit Code: * Procedure Codes: * Electronic signature of Sixto Rasmussen MD on 01/06/2025 at 07:02 AM EDT Sign off status: Pending * Provider: Sixto Rasmussen M.D. Date: 0 10/31/2023 Generated for Chrissy dubois/Abad/Ade on: 0 01/06/2025 07:02 AM EDT
--- OUTSIDE RECORDS SUMMARY | 2024-03-27 05:30 | XMS_ITS ---
Author Organization [facility] Address [address] [facility] [address] [place] [id number] Care Team Providers Care Wolf Hunter Name Role Phone EliezerJaimeYaya Primary Care Provider Sixto Rasmussen [phone] Allergies Allergen (clinical drug ingredient) Drug/Non Drug Allergy documented on EMR Reaction Allergy Type Onset Date Status atorvastatin Atorvastatin Muscle aches Drug Allergy Active Penicillin Unknown Drug Allergy Active Results Component Value Reference Range Notes P-Comprehensive Metabolic Pa tara (CMP) Reviewed date:04/01/2024 09:38:56 AM Interpretation:satisfactory Performing Lab: Notes/Report: Test performed by [facility] [address] [place] [address] , [address], [place] [address] Parviz Maldonado MD, Garage Door Installer CLIA: [id number] Sodium 140 135-145 mmol/L Potassium 4.3 3.5-5.3 [...] Interpretation:Normal Performing Lab: Notes/Report: Test performed by [facility] [address] [place] [address] , [address], [place] [address] Parviz Maldonado MD, Garage Door Installer CLIA: [id number] TSH 4.09 0.43-5.25 mU/L REASON FOR VISIT [...] review and pick correct strength-formulat ion from [employer] options. If intended option is not shown, [...] Encounter Location Date Provider Diagnosis [facility] [address], [place] [phone] 03/27/2024 Sixto Rasmussen Essential (primary) hypertension I10 [address], [place], [id number], Procedure Notes * Category Sub-Category Detail Notes Procedure-other shoe inserts modified with Dreme l metatarsal pad fashioned for right insole Progress Notes * DANANELLYDOB:1960 (64 yo M)Acc No.[id number]:03/27/2024 Progress Notes Patient: NELLY DUDLEY Provider: Sixto Rasmussen M.D. :1960 A ge:63 Y S ex:Male Date:03/27/2024 Address:[address] [place] [address] N , [id number] Pcp:Yaya Martins Subjective: [...] b lood clot on the brain at [facility], dr. lion 1984, Colon cancer resection/ Dr. [...] * Images: Billing Information: * Visit Code: 80697 Office Visit, Est Pt., Level 4. * Procedure Codes: * Electronic signature of Sixto Rasmussen MD on 01/06/2025 at 07:03 AM EDT Sign off status: Pending * Provider: Sixto Rasmussen M.D. Date: 05/27/2023 Generated for Chrissy dubois/Abad/eTransmitting on: 0 01/06/2025 07:03 AM EDT History and Physical Notes * HPI (History [...]
--- OUTSIDE RECORDS SUMMARY | 2024-10-16 07:45 | XMS_ITS ---
Author Organization [facility] Address [address] [facility] [address] [place] [id number] Care Team Providers Care Returned Goods Repairer Name Role Phone EliezerJaimeYaya Primary Care Provider Sixto Rasmussen Unavailable [phone] Allergies Allergen (clinical drug ingredient) Drug/Non Drug [...] 24 Performing Lab: Notes/Report: Test performed by [facility], [employer] [address] [place] [address] , [address], [place] [address] Parviz Maldonado MD, Peanut Vendor CLIA: [id number] Sodium 137 135-145 mmol/L Potassium 4.3 3.5-5.3 [...] 140 Performing Lab: Notes/Report: Test performed by [facility], [address] , [address] , [place] [address] Parviz Maldonado MD, Peanut Vendor CLIA: [id number] Cholesterol 214 <200 mg/dL Triglycerides 91 <150 [...] Interpretation:Normal Performing Lab: Notes/Report: Test performed by [facility] [address] [place] [address] , [address], [place] [address] Parviz Maldonado MD, Peanut Vendor CLIA: [id number] PSA 0.41 <4.00 ng/mL Please note this is an ultrasensitive PSA assay with a lower limit of detection of 0.014 ng/mL. This test is performed by the Yael ECLIA methodology. Values obtained with different assay methods or kits cannot be directly compared. P-TSH Reviewed date:10/30/2024 12:08:15 PM Interpretation:Normal Performing Lab: Notes/Report: Test performed by [facility] [address] [place] [address] [address], [place] [address] Parviz Maldonado MD, Peanut Vendor CLIA: [id number] TSH 3.78 0.43-5.25 mU/L P-Microalbumin/Creatinine, R andom Urine Sample Reviewed date:10/30/2024 12:08:15 PM Interpretation:Normal Performing Lab: Notes/Report: Test performed by [facility] [address] , [address], [place] [address] Parviz Maldonado MD, Peanut Vendor CLIA: [id number] Albumin/Creatinine Ratio, Urine 5 0-30 ug/mg Microalbumin, [...] review and pick correct strength-formulat ion from Revl options. If intended option is not shown, [...] 1 cap(s) orally once a day Active Houma 3 1200 MG 1 capsule Orally Once a day Active Vital Signs Blood pressure systolic 104 mm Hg 10/17/19 25 Blood pressure diastolic 72 mm Hg 025 Heart Rate 74 /min 10/16/2024 Height 77 in 10/16/2024 Weight 233.4 lbs 10/16/2024 BMI 27.67 kg/m2 10/16/2024 Encounters Encounter Location Date Provider Diagnosis [facility] [address] [id number] 10/16/2024 Sixto Rasmussen Essential (primary) hypertension I10 [address], [place], [id number], Progress Notes * NELLY CORTEZDOB:1960 (64 yo M)Acc No.[id number]:10/16/2024 Progress Notes Patient: NELLY DUDLEY Provider: Sixto Rasmussen M.D. :1960 A ge:64 Y S ex:Male Date:10/16/2024 Address:[address] [place] [address] [id number] Pcp:Yaya Martins Subjective: * [...] b lood clot on the brain at [facility], dr. lion 1984, Colon cancer [...] A lcohol: No. * Medications: T aking Houma 3 1200 MG Capsule 1 capsule Orally [...] *Please review and pick correct strength-formulation from Spyraspan options. If intended option is not shown, [...] D yslipidemia - E78.5 5 . B AR 27.0-27.9,adult - Z68.27 Plan: * Treatment: Value [...] Codes: 8 5025 CBC WITH AUTO DIFF, 89548 VENIPUNCT, ROUTINE*, 1036F TOBACCO NON-USER, G8420 BMI<30 AND >=22 CALC & DOCU, G8950 PREHTN/HTN BP DOC INDCD F/U DOC, G8752 MOST RECENT SYSTOLIC BP < 140MM HG, G8754 MOST RECENT DIASTOLIC BP < 90MM HG * Follow Up: 6 Months * Images: Billing Information: * Visit Code: 84056 Preventive Care Est Pt Age 40-64. * Procedure Codes: 77337 CBC WITH AUTO DIFF. 80650 VENIPUNCT, ROUTINE*. 1036F TOBACCO NON-USER. G8420 BMI<30 AND >=22 CALC & DOCU. G8950 PREHTN/HTN BP DOC INDCD F/U DOC. G8752 MOST RECENT SYSTOLIC BP < 140MM HG. G8754 MOST RECENT DIASTOLIC BP < 90MM HG. * Electronic signature of Sixto Rasmussen MD on 01/06/2025 at 07:01 AM EDT Sign off status: Pending * Provider: Sixto Rasmussen M.D. Date: 0 10/16/2024 Generated for Lii ng/Faxing/eTransmitting on: 0 01/06/2025 07:01 AM EDT History and Physical Notes * [...]
--- OUTSIDE RECORDS SUMMARY | 2024-11-02 06:00 | XMS_ITS ---
Author Organization [facility] Address [address] [facility] 36 [facility] [address] [place] [id number] Care Team Providers Care Hand Tacker Name Role Phone Eliezer Yaya Primary Care Provider Sixto Rasmussen [phone] Results Component Value Reference Range Notes P-Magnesium Reviewed date:11/04/2024 01:21:53 PM Interpretation:Normal Performing Lab: Notes/Report: Test performed by [facility] [address] [place] [address] , [address], [place] [address] Parviz Maldonado MD, Technical Product Manager CLIA: [id number] Magnesium 2.2 1.6-2.4 mg/dL REASON FOR VISIT blood work Problems Problem Type SNOMED Code ICD Code Onset Dates Problem Status W/U Status Risk Notes Problem Hypermagnesemia (73783107) Hypermagnesemia (E83.41) Active confirmed Problem Hypomagnesemia (668933429) Hypomagnesemia (E83.42) Active confirmed Encounters Encounter Location Date Provider Diagnosis [facility] [address] [facility] 36 [facility] [address] [place] [id number] 11/02/2024 Sixto Rasmussen Hypomagnesemia E83.4 2 Assessments Encounter Date Diagnosis (ICD Code) Assessment Notes Treatment Notes Treatment Clinical Notes Section Notes 11/02/2024 Hypomagnesemia (ICD-10 - E83.42) Plan Of Treatment Next Appt Details Provider Name:Sixto Paiz er, 04/16/2025 09:30:00 AM, [address] [facility] 36 [facility], [address], [place], [id number], Progress Notes * NELLY CORTEZDOB:1960 (64 yo M)Acc No.[id number]:11/02/2024 Patient: NELLY DUDLEY Provider: Sixto Rasmussen M.D. :1960 A ge:64 Y S ex:Male Date:11/02/2024 Address:[address] [place] [address] [place] [id number] Pcp:Yaya Martins Subjective: * Chief Complaints: * [...] Pending * Provider: Sixto Rasmussen M.D. Date: 11/02/2024 Generated for Chrissy dubois/Abad/Danieleitting on: 0 01/06/2025 07:01 AM EDT
--- NOTE | 2025-01-06 07:01 | CT_ITS ---
FINAL REPORT TECHNIQUE: Axial CT images of the chest were obtained without contrast. Low-dose protocol was utilized. This study was performed with techniques to keep radiation doses as low as reasonably achievable (ALARA). Individualized dose reduction techniques using automated exposure control or adjustment of mA and/or kV according to the patient's size were employed. CLINICAL HISTORY: HX OF TOBACCO former smoker quit 14 years ago, 1ppd x28 years COMPARISON: 11/20/2023 FINDINGS: CT CHEST WITHOUT, LOW DOSE SCREENING CT Di Vol: 2.90 mGy DLP: 105.77 mGy*cm There is no axillary, mediastinal, or hilar adenopathy. The heart size is normal. There is no pleural or pericardial effusion. The lung windows show the previously noted nodules in the right lower lobe are now seen on image 42 of series 3 and 66 of series 3 and are again stable. There is also a tiny stable right lower lobe nodule on image 54 series 3. There are multiple calcified granulomas in the right upper lobe. Limited images of the upper abdomen demonstrate no acute findings. IMPRESSION: Stable right lung nodules as above. LR Category 2: 12 month follow-up low-dose chest CT is recommended per Fleischner criteria. Reviewed, Interpreted and Dictated by Kana Pereira MD Transcribed by Anastasiia Cruz Authenticated and [facility]
--- OUTSIDE RECORDS SUMMARY | 2025-01-06 07:01 | XMS_ITS | Encounter Summary ---
Author Organization [employer] ([place], [place], [place], [place]) Address [address] [place] [address] Care Team Providers Care Donor Relations Manager Name Role Phone Balaji Rasmussen MD Primary Care Provider [phone] Encounter Details Date Type Department Care Team (Late st Contact Info) Description 11/30/2020 Transcribed Document [facility] Family Medicine [address] [place] [address] ProviderMahi MD [address] [place], [place] [address] Social History Tobacco Use Types Packs/Day Years Used Date Smoking Tobacco: Never Assessed Sex and Gender Information Value Date Recorded Sex Assigned at Not on file Legal Sex Male 5:42 PM CDT Gender Identity Not on file Sexual Orientation Not on file documented as of this encounter Miscellaneous Notes * Cerner Conversion Note - Historical ProviderMD - 11/30/2020 1:21 PM CDT Event Note Entered On: 11/30/2020 13:23 EDT Performed On: 11/30/2020 13:21 EDT by VICENTA MELLO RN Event Note Event Date/Time : 11/30/2020 12:43 EDT VICENTA MELLO RN - 11/30/2020 13:21 EDT Description of Event : 1243: Pt received from EP lab. Awake and talkative. Denies chest pain or any trouble breathing. Alert and oriented. Simple mask [address] Mask removed and pt placed on oxygen 2 L pnc. NSR per monitor. Right art line site without bleeding or hematoma. Bilateral venous groin sites without bleeding or hematoma. Pressure roll in place over groin sites. Pt aware of bedres restrictions. Clifton catheter in place. C/o burning from clifton. Patent with clear yellow urine. IV site converted to saline lock and flushed. IV patent. 1310: To start Flecainide and Eliquis tonight at 2100 per Herlinda Herbert RN 1418: Dr. Mesa in to talk with pt. REmains NSR. Tylenol has been given for leg pain. John Mello RN 1530: States that leg pain is better. No bleeding or hematoma. John Mello RN 1625: Report called to [facility] Chaney 4 IC. Pt transported to room 405 via stretcher. Monitored en route NSR. bilateral groin sites without bleeding or hematoma. 1,100 emptioed from clifton prior to transport for total of 2,100 ml output in [facility]. Belongings with pt. CLINT Bryant CARLA L, RN - 11/30/2020 16:34 EDT Electronically signed by Meng [facility] Conversion Rock Mason Apprentice Cerner at 08/26/2022 1:45 PM CDT documented in this encounter Plan of Treatment Upcoming Encounters Date Type Department Care Team (Late st Contact Info) Description 01/19/2025 10:45 AM EDT Office Visit [facility] [place] [address] [address] [address] Octavio Larsen MD [facility] [address] [place] [address] 04/20/2025 10:45 AM EST Office Visit [facility] Electrophysiology [address] [place] [address] [place] [address] [place] [address] [address] [place] [address] documented as of this encounter Visit Diagnoses Not on filedocumented in this encounter Care Teams Donor Relations Manager Relationship Specialty Start Date End Date Balaji Rasmussen MD [address] [place] [address] PCP - General Family Medicine 05/10/22 documented as of this encounter
--- OUTSIDE RECORDS SUMMARY | 2025-01-06 07:01 | XMS_ITS | Encounter Summary ---
Author Organization [employer] ([place], [place], [place], [place]) Address [address] [place] [address] Care Team Providers Care Turner Off Name Role Phone Balaji Rasmussen MD Primary Care Provider [phone] Reason for Visit * Reason Comments Medication Refill Encounter Details Date Type Department Care Team (Late st Contact Info) Description 05/24/2023 Refill [facility] Electrophysiology [address] [place] [id number] [place] [address] [place] [address] [address] [place] [address] Paroxysmal atrial fibrillation (HCC) Social History Tobacco Use Types Packs/Day Years Used Date Smoking Tobacco: Former Cigarettes Passive Smoke Exposure: Never Smokeless Tobacco: Never Comments:20 year smoking .5 a day Alcohol Use Standard Drinks/Week Comments Not Currently 0 (1 standard drink = 0.6 oz pur e alcohol) Family and Community Support Answer Kristian e Recorded Help with Day to Day Activities Not on file 05/17/2023 Feeling Lonely or Isolated Not on file 05/17 Educational Attainment Answer Date Billy rded Speak language other than Nigerian at home Not on file 05/17/2023 Want help with school or training Not on file 05/17/2023 Substance Use Answer Date Recorded Used prescription meds for non-medical reasons N ot on file 05/17/2023 Used illegal drugs past 12 months Not on file 05/17/2023 Sex and Gender Information Value Date Recorded Sex Assigned at Not on file Legal Sex Male 5:42 PM CDT Gender Identity Not on file Sexual Orientation Not on file documented as of this encounter Plan of Treatment Upcoming Encounters Date Type Department Care Team (Late st Contact Info) Description 01/19/2025 10:45 AM EDT Office Visit [facility] - [facility] [address] [place] [id number] Octavio Larsen MD [address] [facility] [address] [place] [address] 04/20/2025 10:45 AM EST Office Visit [facility] Electrophysiology [address] [place] [address] Diogo Mesa MD [address] [facility] [address] [place] [address] documented as of this encounter Visit Diagnoses Diagnosis Paroxysmal atrial fibrillation (HCC) Atrial fibrillation documented in this encounter Care Teams Turner Off Relationship Specialty Start Date End Date Balaji Rasmussen MD [address] [place] [address] PCP - General Family Medicine 05/10/22 documented as of this encounter
--- OUTSIDE RECORDS SUMMARY | 2025-01-06 07:01 | XMS_ITS | Encounter Summary ---
Author Organization [email or web address] ([place], [place], [place], [place]) Address [address] [place] [address] Care Team Providers Care Real Estate Assessor Name Role Phone Balaji Rasmussen MD Primary Care Provider [phone] Encounter Details Date Type Department Care Team (Late st Contact Info) Description 11/30/2020 Transcribed Document [facility] [place] [facility] [address] [place] [address] ProviderMahi MD [address] [place], [place] [id number] Social History Tobacco Use Types Packs/Day Years Used Date Smoking Tobacco: Never Assessed Sex and Gender Information Value Date Recorded Sex Assigned at Not on file Legal Sex Male 5:42 PM CDT Gender Identity Not on file Sexual Orientation Not on file documented as of this encounter Miscellaneous Notes * Cerner Conversion Note - Historical ProviderMD - 11/30/2020 6:21 AM CDT Pre Procedure Adult Entered On: 11/30/2020 6:29 EDT Performed On: 11/30/2020 6:21 EDT by VICENTA MELLO RN Height and Weight, Clinical Dosing Height Source : Measured Height Entry Format : [place] Height, Feet : 6 ft(Converted to: 183 cm, 72 Inch) Height, Inches : 6 Inch(Converted to: 0 ft 6 Inch, 15.24 cm) Clinical Height : 198.12 cm Weight Source : Standing scale Weight Entry Format : [place] Clinical Dosing Weight : 105 kg Weight, Pounds : 231 lb Body Surface Area (BSA) : 2.4 m2 Body Mass Index : 26.8 kg/m2 (HI) [place] Body Weight : 90 kg VICENTA MELLO RN - 11/30/2020 6:21 EDT Health Histories Smoking Status : Former smoker, quit more than 30 days ago Smokeless Tobacco Status : Never VICENTA MELLO RN - 11/30/2020 6:21 EDT Social History (As Of: 11/30/2020 06:29:14 EDT) Tobacco: Former smoker, quit more than 30 days ago Smoking Status. Years of Use: 15. Packs/Tins Daily: 0.5. Last Used: quit 2009. (Last Updated: 10/22/2018 07:06:30 EDT by VICENTA MELLO RN) Former smoker, quit more than 30 days ago Smoking Status. None Smokeless Tobacco Use History. Years of Use: 15. Packs/Tins Daily: 1. Second Hand Smoke Exposure: No. (Last Updated: 10/22/2018 15:41:08 EDT by Arnulfo Young RN) Alcohol: Alcohol Use History No. (Last Updated: 10/22/2018 07:06:47 EDT by VICENTA MELLO RN) Substance Abuse: Drug Use Hx: No. (Last Updated: 10/22/2018 07:06:58 EDT by VICENTA MELLO RN) Infectious Disease History Has the patient ever been tested for COVID-19? : Yes, Patient stated results Negative Where are the test results? : Paper Copy on chart Date of COVID-19 test known? : Yes Date of COVID-19 Test : 11/28/2020 EDT Does patient have symptoms of COVID-19? : No COVID19 Screening : No Experiencing Infectious Disease Symptoms : No symptoms Physical contact outside [place] in the last 30 days : No Infectious Disease History : None Tuberculosis Symptoms : None VICENTA MELLO RN - 11/30/2020 6:21 EDT COVID19 PreProcedure Screening Is this an Emergent or Add on Procedure? : No Date PreProcedure COVID-19 test known? : Yes Date of PreProcedure COVID-19 : 11/28/2020 EDT Has patient been isolated since the test : Yes Exposed to COVID19 symptoms since test? : No VICENTA MELLO RN - 11/30/2020 6:21 EDT Anesthesia/Transfusion History Family History of Anesthesia Reaction : No prior transfusion(s) Blood Transfusion Acceptable to Patient : Yes Transfusion History : Prior anesthesia without reaction Family History of Anesthesia Reaction : None VICENTA MELLO RN - 11/30/2020 6:21 EDT Functional Assessment Living Situation : Home Patient Lives With : Spouse Persons Assisting Patient at Home : Spouse Current Daily Living Assistance : None Mobility Assistance Prior to Admission : Independent Current Home Treatments : None VICENTA MELLO RN - 11/30/2020 6:21 EDT [place] Suicide Severity Rating Scale (C-SSRS) CSSRS Past Month Wish to be : No CSSRS Past Month Suicidal Thoughts : No CSSRS Lifetime Suicide Behavior : No Suicide Severity Rating Score : 0 Suicide Severity Rating : No Additional Care Required at this time VICENTA MELLO RN - 11/30/2020 6:21 EDT Psychosocial History Does Someone Depend on You for Care? : No Do You Have a History of the Following? : Anxiety Currently in Unsafe Situation : No VICENTA MELLO RN - 11/30/2020 6:21 EDT Advance Directive Patient has Advance Directive *Q : No, patient refuses Advance Directive information VICENTA MELLO RN - 11/30/2020 6:21 EDT Spiritual/Cultural Needs Significant Loss/Crisis in Past 3 Years : No Any Spiritual/Cultural Needs or Requests : Yes Yazdanism Preference : Faith ([employer]) VICENTA MELLO RN - 11/30/2020 6:21 EDT Teaching/Learning Assessment Barriers To Learning : None evident Readiness to Learn : Cooperative Learning Style Preferences Patient : Verbal explanation VICENTA MELLO RN - 11/30/2020 6:21 EDT Education Topics, Periop Preadmission Perioperative Education Grid IV's : Verbalizes understanding NPO Status/Directions : Verbalizes understanding Responsible Adult : Verbalizes understanding VICENTA MELLO RN - 11/30/2020 6:21 EDT General Info Arrived From : Home Mode of Arrival on Unit : Ambulatory Legal Guardian : Spouse Want Family/Rep/Phys Notified of Admit : No Emergency Contact #1 : Suzanne Emergency Contact #1 Emergency Contact #1 Relationship : spouse Emergency Contact #2 : none Emergency Contact #2 Phone Number : none Emergency Contact #2 Relationship : none Chief Complaint : Here for a fib ablation Primary Language : Belarusian Preferred Communication Mode : Verbal Communication Barrier : None Firearms Inspector Needed : No Objects to Sharing Info w Family : No VICENTA MELLO RN - 11/30/2020 6:21 EDT Vital Measurements Temperature Source : Temporal artery scanning Temperature Mode : Fahrenheit Temperature, Fahrenheit : 97.5 Deg F Clinical Temperature, C : 36.4 Deg C Pulse Method : Non-Invasive BP Device Peripheral Pulse Rate : 74 bpm Respiratory Rate : 16 Breaths/Min Blood Pressure Location : Arm, right upper Blood Pressure Source : Non-Invasive BP Device Systolic Blood Pressure : 131 mmHg Diastolic Blood Pressure : 82 mmHg Oxygen Saturation : 98 % Oxygen Therapy Mode : Room air VICENTA MELLO RN - 11/30/2020 6:21 EDT Sleep Apnea Risk Assmt Hx of Obstructive Sleep Apnea Diagnosis : No Snore Loudly : Yes Tired, Fatigued, or Sleepy During Day : Yes Observed Stopping Breathing During Sleep : No Have/Are Being Treated for Hypertension : No BMI Greater Than 35 kg/m2 : No Age over 50 Years Old : Yes Neck Circumference Greater Than 40 cm : Yes Gender Male : Yes STOP-BANG Sleep Apnea Risk Level Score : 5 VICENTA MELLO RN - 11/30/2020 6:21 EDT Mukesh Scale Mukesh Sensory Perception : No impairment Mukesh Moisture : Rarely moist Mukesh Activity : Walks frequently Mukesh Mobility : No limitation Mukesh Nutrition : Adequate Mukesh Friction and Shear : No apparent problem Mukesh Score : 22 VICENTA MELLO RN - 11/30/2020 6:21 EDT Oxygen Therapy Oxygen Therapy Mode : Room air VICENTA MELLO RN - 11/30/2020 6:21 EDT Pain Assessment Pain Assessment : Initial assessment Pain Scale Used : 0-10 Scale VICENTA MELLO RN - 11/30/2020 6:21 EDT Fall Risk Scales ABCs Fall Injury Risk Identification : Coagulation ABC Fall Injury Risk : Moderate to high injury risk CHOU Hx Falls Immediate/Within 3 Months : No Chou Secondary Diagnosis : Yes CHOU Use of Ambulatory Aid : None CHOU IV Therapy or IV Access : Yes Chou Gait/Transferring : Normal, bedrest, immobile Chou Mental Status : Oriented to own ability Chou Fall Risk Score : 35 CHOU Fall Scale Risk Level : 25-45 Medium Risk [place] Fall Interventions : Adequate lighting, Bed in low position, Hourly comfort/safety rounds, Personal items within reach, Room free of clutter/spills, Upper side-rails up, Wheels locked, Wires/Cords secured VICENTA MELLO RN - 11/30/2020 6:21 EDT Valuables and Belongings Valuables and Belongings : Clothing, Jewelry, Personal devices, Personal items, No assistive devices, No respiratory devices, No medications Clothing : Common streetwear Clothing Disposition : Bedside Personal Device Disposition : With family Jewelry : Ring Jewelry Disposition : With family Personal Devices : Glasses Personal Items : Cell phone Personal Items Disposition : With family VICENTA MELLO RN - 11/30/2020 6:21 EDT Pain Scale Intensity : 0 VICENTA MELLO RN - 11/30/2020 6:21 EDT Image 4 - Images currently included in the form version of this document have not been included in the text rendition version of the form. Ciaran Coma Ciaran Best Motor Response : Obey commands Walnut Best Verbal Response : Oriented [place] Eye Opening Response : Spontaneous Ciaran Coma Score : 15 VICENTA MELLO RN - 11/30/2020 6:21 EDT documented in this encounter Plan of Treatment Upcoming Encounters Date Type Department Care Team (Late st Contact Info) Description 01/19/2025 10:45 AM EDT Office Visit [facility] [place] [address] [facility] [address] [place] [address] Octavio Larsen MD [address] [facility] [address] [place] [address] 04/20/2025 10:45 AM EST Office Visit [facility] Electrophysiology [address] [place] [address] Diogo Mesa MD [address] [facility] [address] [place] [address] documented as of this encounter Visit Diagnoses Not on filedocumented in this encounter Care Teams Real Estate Assessor Relationship Specialty Start Date End Date Balaji Rasmussen MD [address] [place] [address] PCP - General Family Medicine 05/10/22 documented as of this encounter
--- OUTSIDE RECORDS SUMMARY | 2025-01-06 07:01 | XMS_ITS | Encounter Summary ---
Author Organization [employer] ([place], [place], [place], [place]) Address [address] [place] [address] Care Team Providers Care Extracorporeal Technician Name Role Phone Balaji Rasmussen MD Primary Care Provider [phone] Encounter Details Date Type Department Care Team (Late st Contact Info) Description 11/30/2020 Transcribed Document [facility] [place] Family Medicine [address] [place] [address] ProviderMahi MD [address] [place], [place] [address] Social History Tobacco Use Types Packs/Day Years Used Date Smoking Tobacco: Never Assessed Sex and Gender Information Value Date Recorded Sex Assigned at Not on file Legal Sex Male 5:42 PM CDT Gender Identity Not on file Sexual Orientation Not on file documented as of this encounter Miscellaneous Notes * Cerner Conversion Note - Mahi ProviderMD - 11/30/2020 6:29 AM CDT Spiritual Care Assessment Entered On: 11/30/2020 7:44 EDT Performed On: 11/30/2020 7:05 EDT by OCTAVIO ZAYAS General Information Initial Visit : Yes Referred by : Patient Referral Reason Comment : Pre-procedure visit Ministry Provided to : Patient, Family/Significant other Orthodoxy Preference : Taoist ([employer]) OCTAVIO ZAYAS - 11/30/2020 7:43 EDT Spiritual Assessment Spiritual Assessment Comment/Summary Points : Provided pre-procedure visit and prayer with patient and . Spirital Assessment Comment/Summary Report : SPIRITUAL ASSESSMENT COMMENT/SUMMARY No qualifying data available. OCTAVIO ZAYAS P - 11/30/2020 7:43 EDT Interventions Emotional Support : Empathic/Engaged listening, Family/Significant other supported, Feelings expressed Spiritual and Orthodoxy : Prayer shared, Spiritual/Orthodoxy support provided OCTAVIO ZAYAS P - 11/30/2020 7:43 EDT Electronically signed by [facility] Conversion Associate Professor Of Medicine Cerner at 08/26/2022 1:49 PM CDT documented in this encounter Plan of Treatment Upcoming Encounters Date Type Department Care Team (Late st Contact Info) Description 01/19/2025 10:45 AM EDT Office Visit [facility] [address] [facility] [address] [place] [phone] Octavio Larsen MD [address] [facility] [address] [place] [address] 04/20/2025 10:45 AM EST Office Visit [facility] Electrophysiology [address] [place] [phone] [place] [address] [place] [address] [address] [place] [address] documented as of this encounter Visit Diagnoses Not on filedocumented in this encounter Care Teams Extracorporeal Technician Relationship Specialty Start Date End Date Balaji Rasmussen MD [address] [place] [address] PCP - General Family Medicine 05/10/22 documented as of this encounter
--- OUTSIDE RECORDS SUMMARY | 2025-01-06 07:02 | XMS_ITS | Encounter Summary ---
Author Organization [email or web address] ([place], [place], [place], [place]) Address [address] [place] [address] Care Team Providers Care Manager Community Outreach Name Role Phone Balaji Rasmussen MD Primary Care Provider [phone] Encounter Details Date Type Department Care Team (Late st Contact Info) Description 10/22/2018 Transcribed Document [facility] [place] Family Medicine [address] [place] [address] ProviderMahi MD [address] [place] [address] Social History Tobacco Use Types Packs/Day Years Used Date Smoking Tobacco: Never Assessed Sex and Gender Information Value Date Recorded Sex Assigned at Not on file Legal Sex Male 5:42 PM CDT Gender Identity Not on file Sexual Orientation Not on file documented as of this encounter Miscellaneous Notes * Cerner Conversion Note - Mahi ProviderMD - 10/22/2018 4:08 PM CDT Patient: LAITH CORTEZ Age: 58 Years Sex: Male : 1960 Procedure Name 1. Intracardiac echocardiography. 2. Transseptal access. 3. Electrophysiologic study. 4. 3D electroanatomic mapping. 5. Catheter ablation. ATTENDING LAUNCH MANAGER: Shavon Ricci MD, [facility] PROCEDURE INDICATIONS: Atrial fibrillation, refractory and/or intolerant to antiarrhythmic drug therapy(Flecainide). BASELINE ELECTROCARDIOGRAM: The rhythm was normal sinus. PROCEDURE SUMMARY: After written, witnessed, informed consent was obtained for the procedure and sedation from the patient,the patient was transferred to the EP laboratory. The patient was in the fasting state. A grounding pad was placed. Self-adhesive anterior- posterior defibrillation pads were applied. Blood pressure was monitored. ANDREA was negative for LA/CHAN thrombus. 1. The groins were prepped and draped in the usual sterile fashion. 2. Local anesthesia with lidocaine was given at the access site. 3. Bilateral femoral vein access was obtained. The vessels were accessed using the modified Seldinger technique with a micro needle. 4. Right radial artery was accessed by anesthesia for blood pressure monitoring. Esophageal temperature probe was used, and position was continuously adjusted to keep close to ablated pulmonary vein. 5. A duodecapolar catheter was positioned in the RA and coronary sinus through the left femoral vein. 6. Intracardiac echocardiography: A phased array 9-Thai ViewFlex ICE catheter was advanced into the right atrium via the sheath in the left femoral vein. Echocardiography was used to guide the transseptal puncture, in addition to monitoring for any complications. 7. Transseptal catheterization was performed under fluoroscopic and intracardiac echocardiographic guidance. Heparin bolus was given before and continuous IV infusion was started after transseptal puncture. The sheath in the right femoral vein was exchanged over a wire and transseptal access was performed using a Brockenbrough needle assembly with SL0. SL0 was then exchanged over extra stiff 0.035 wire with 15Fr FlexCath sheath. Arctic Front Advance catheter was advanced through the sheath and positioned in the left atrium. The heparin infusion rate was adjusted to maintain an ACT between 300- 350 seconds throughout the procedure. 8. Electrophysiologic testing was performed with multiple catheter 9. 3D electroanatomic mapping/ablation:3D maps of LA/PV's and later of RA were obtained. 10. Ablation of pulmonary veins was performed using cryoaballoon and further ablation in LA and of CTI ablation was performed using RF energy. Followup testing was performed 30 minutes post ablation. 11. Heparin was revered with protamine at the end of the procedure. Sheaths were then removed at the end of the procedure and adequate hemostasis was obtained with figure of eight sutures. VASCULAR ACCESS AND CATHETER PROPERTIES: 1. Left femoral vein: An 8-Thai short sheath,BiosHabitRPGter deflectable duodecapolar catheter, TA and coronary sinus. 2. Left femoral vein: A 9-Thai long sheath, mid right atrium, Biosense Yeh, Sound Star ICE catheter. 3. Right femoral vein: An 8-Thai long sheath (SL0), left atrium, exchanged with 15-Thai FlexCath steerable sheath, then exchanged with 16 Fr short sheath and SL0(open irrigation ST SF F curve ablation catheter)to map/ablation in LA then for CTI ablation. 4. Left femoral vein: A 6-Thai short sheath,Biosense Yeh quadripolar deflectable catheter, SVC for diaphragmatic pacing. ADMINISTERED MEDICATIONS: The procedure was performed under general anesthesia. ELECTROPHYSIOLOGIC STUDY AND ABLATION: The patient presented to the EP laboratory in sinus rhythm. CTA of chest was reviewed and showed no left common pulmonary vein or right middle PV.This was confirmed on ICE. All pulmonary veins were electrically isolated from the left atrium by Cryoballoon. Cryoballoon was positioned at the antrum of each vein with confirmed occlusion using contrast injection. Each vein had two freezes, first of 3 minutes and second of 2-3 minutes duration (freeze,thaw, freeze). Temperature achieved was -40 to -46C. Esophageal temp never dropped below 25.6 degrees Celsius. Entrance and exit block of all veins was confirmed with achieve spiral catheter. Diaphragmatic pacing was performed during isolation of right pulmonary veins(1200 msec, 20mA at 2 ms) with no change of contraction intensity. ICE and 3D mapping were also used to guide Cryoballoon and spiral catheter (achieve) manipulation. EP Study was then performed: SCL 1136 msec, AH 100 msec, HV 48 msec, CT 185 msec, QRS 93 msec, QT 464 msec. Antegrade AV vj WBCL 400 msec, no retrograde AV vj conduction. HRA burst pacing at 230 msec induced sustained atrial flutter, CL 275 msec, distal to proximal CS activation, suggestive of LA origin. Entrainment from high and low lateral RA had long PPI, from septal high RA had PPI-TCl ~ 45 msec, from proximal and distal CS had PPI-TCL ~ 45 msec and earliest was from mid CS, around 35 msec. Flex Cath was exchanged over wire with SL0, and Biosense Yeh ST SF F curve open irrigation ablation catheter was advanced to left atrium. All PV's were again checked and were isolated. 3D activation map of LA was created, suggestive of double loop (figure of eight reentry), one loop rotating counterclockwise around mitral annulus and other loop rotating around right pulmonary veins and roof. Voltage map was also obtained and showed focal areas of low voltage/scar in anteroseptal and inferoseptal jameson. There was a channel between two scar areas in mid anteroseptal wall, likely suggestive of a zone of slow conduction/isthmus for flutter.Entrainment at this site had reasonable PPI-TCL~ 35 msec. Ablation of that channel didn't alter flutter. Left atrial roof line was then pulled from LSPV to RSPV. Flutter CL shortened to 250 msec but atrial activation sequence remained the same. Repeat activation map now showed CCW danay-mitral flutter. Anterior mitral isthmus line was pulled from anterior mitral annulus to RSPV, and flutter terminated while completing reliner to RSPV. Line was revised and bidirectional block across this line and roof line was confirmed by pacing from different CS sites and different LA sites. Further HRA pacing at 230 msec induced typical CCW atrial flutter, CL around 290 msec, with 2:1 AV conduction, entrainment from mid CTI had PPI=TCL. AFL oscillated between CCW and CW, then degenerated to AFB then to another AT with distal to proximal CS activation. 3D activation of LA showed high anterior wall re-entrant tachycardia, and entrainment from that area had short PPI-TCL. A line was pulled from mid yuliya to intersect anterior mitral isthmus line, where tachycardia terminated. WACA around PV's from cryoablation was very wide with very thin rim of viable tissue between right and left WACA, narrowest in mid to distal posterior wall, with evidence of some CFAE's which were ablated. Esophageal temperature never increased above 37.3 C. SL0 sheath was then pulled to the right atrium and heparin was reversed using protamine. Cavotricuspid isthmus line was then pulled at 6 o'clock from tricuspid annulus to IVC. Bidirectional block was then achieved with medial to lateral and lateral to medial trans-isthmus conduction intervals of 150 msec. COMPLICATIONS: No complications. DISCHARGE AND FOLLOWUP: The patient left the EP laboratory to recovery in a stable condition. Patient was awake. SUMMARY: 1. Successful pulmonary vein isolation using Cryoballoon ablation. 2. Successful RF ablation of danay-mitral flutter with anterior mitral isthmus line and persistent bidirectional block. 3. Successful RF ablation of anterior LA macroreentrant tachycardia. 4. Successful ablation of left atrial roof line with bidirectional block. 5. Successful ablation of low voltage area/channel in LA anteroseptal wall and CFAE's in mid/distal posterior wall. 6. Successful ablation of typical atrial flutter/ cavotricuspid isthmus with persistent bidirectional block. RECOMMENDATIONS: 1. Bedrest for 4 hours after sheath removal. 2. Start Eliquis tonight. 3. PPI for one month. Thank you so much for allowing me to participate in the care of your pleasant patient. documented in this encounter Plan of Treatment Upcoming Encounters Date Type Department Care Team (Late st Contact Info) Description 01/19/2025 10:45 AM EDT Office Visit [facility] [address] [facility] [address] [place] [address] Octavio Larsen MD [address] [facility] [address] [place] [phone] 04/20/2025 10:45 AM EST Office Visit [facility] Electrophysiology [address] [place] [phone] [place] [address] [place] [address] [address] [place] [address] documented as of this encounter Visit Diagnoses Not on filedocumented in this encounter Care Teams Manager Community Outreach Relationship Specialty Start Date End Date Balaji Rasmussen MD [address] [place] [address] PCP - General Family Medicine 05/10/22 documented as of this encounter
--- OUTSIDE RECORDS SUMMARY | 2025-01-06 07:02 | XMS_ITS | Encounter Summary ---
Author Organization [employer] ([place], [place], [place], [place]) Address [address] [place] [address] Care Team Providers Care Supervisor Home Economics Name Role Phone Balaji Rasmussen MD Primary Care Provider [phone] Encounter Details Date Type Department Care Team (Late st Contact Info) Description 12/01/2020 Transcribed Document [facility] Family Medicine [address] [place] [address] ProviderMahi MD [address] [place] [address] [id number] Social History Tobacco Use Types Packs/Day Years Used Date Smoking Tobacco: Never Assessed Sex and Gender Information Value Date Recorded Sex Assigned at Not on file Legal Sex Male 5:42 PM CDT Gender Identity Not on file Sexual Orientation Not on file documented as of this encounter Miscellaneous Notes * Cerner Conversion Note - Mahi ProviderMD - 12/01/2020 7:46 AM CDT Patient: NELLY CORTEZ Age: 60 years Sex: Male : 1960 Associated Diagnoses: None Author: NELDA MESA MD-CAR Allergies (1) Active Reaction Fish C/O: itching [facility] Discharge Note: EP Primary Sr. Pricing Analyst: PCP: Jose Leavitt Consults: NONE History of Present Illness: Patient is a 60 year old male was seen by Dr Elsabbagh with a PMH significant for Paroxysmal Afib CHADS VASC 0, s/p complex afib ablation on 10/22/2018 including PVI cryo as well as ablation of danay-mitral flutter and macroreentrant anterior left atrial tachycardia left atrial roof line atypical aflutter ablation. Patient continues to c/o occasional palpitations since ablation. Patient wore 2 week Zio monitor in May 2019 that showed periods of Afib/flutter with her burden of 3% and the longest episode of flutter for 30 minutes. He is very anxious patient and very sensitive to arrhythmias and palpitations. We discussed about staying on eliquis versed and shifting to aspirin which is a possibility since his [id number] is 0 but patient wants to stay on eliquis for now. Option down the road if the arrhythmia was getting worse might be to increase the flecainide although he has a poor tolerance of increasing it versus other drugs, but would wait for him to be very symptomatic and correlated with a high burden on a monitor. Follow up appointment in January, patient c/o increased palpitations and Afib symptoms. He seems to have symptoms every day up to 135 beats per minutes seems to be real on his watch with heart rates. We confirmed with a zio-patch to match symptoms. He will now take his flecainide twice a day regularly and not randomly as well as as his metoprolol. Patient is very anxious. Patient presents to clinic today for 6 week follow up with event monitor results. The monitor shows a 3% percent burden of AFib, longest 4 hours. For now we will increase the flecainide 100 mg twice a day. Other option include multaq or repeat an ablation. He reports he was unable to tolerate Flecainide 100 mg BID, and is currently taking Flecainide 50 mg BID. We will transfer options again including propafenone multaq and ablation. I told him to take an extra flecainide 50 mg as needed inked up of his 50 mg twice a day. Patient here with a similar complains with the ziopatch. It shows an A. fib burden of 5% with heart rates up to 191 beats per minutes and the longest episode up to 5 hours. We got the most recent TSH and T4 faxed over from her primary care doctor with a T4 being 1.4 and TSH 4.8. At this stage, the patient wants to proceed for an A. fib ablation even though I offered to do Tikosyn as a reasonable alternative. He and his understand the 3% risks of major complications including stroke cardiac effusion and even . Patient understand the risks and benefits and the fact that it may not work. He will stop his metoprolol, flecainide and eliquis the morning of the procedure on a Saturday. Patient was admitted on 11/30/2020 for PVI/afib ablation. Admitting Diagnosis: 1. atrial fibrillation Surgical History: History of [place] Holes For Evacuation Of Subdural Hematoma ?? 1984, Dr Verduzco History of Colonoscopy (Fiberoptic) Screening ?? 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 2010, Dr Brand Pertinent Labs/Results Blood Gases (Current Encounter/Past 24 Hours) No Blood Gas Results Found (Past 24 Hours) Labs (Last four charted values) WBC 7.1 (DEC 01) 4.2 (NOV 30) HB L 12.8 (DEC 01) 14.3 (NOV 30) HCT L 39.0 (DEC 01) 43.1 (NOV 30) Plt L 153 (DEC 01) L 156 (NOV 30) Na 140 (DEC 01) 141 (NOV 30) K 3.8 (DEC 01) 4.0 (NOV 30) Cl 108 (DEC 01) 111 (NOV 30) CO2 28 (DEC 01) 25 (NOV 30) BUN 15 (DEC 01) 18 (NOV 30) Cr 0.80 (DEC 01) 0.90 (NOV 30) Glu R 106 (DEC 01) 103 (NOV 30) Ca L 8.1 (DEC 01) 8.4 (NOV 30) General: Alert and oriented. Eye: Pupils are equal, round and reactive to light. HENT: Normocephalic. Neck: Supple, Non-tender, No carotid bruit, No jugular venous distention. Respiratory: Lungs are clear to auscultation, Respirations are non-labored. Cardiovascular: Irregular rhythm, No murmur, Good pulses equal in all extremities. Jugular Veins: Not distended. Gastrointestinal: Soft, Non-tender, Non-distended, Normal bowel sounds. Musculoskeletal: Normal range of motion. Integumentary: Warm, Dry, [place]. Bilateral groins without hematoma or bleeding. Z STITCH TO BE REMOVED PRIOR TO DISCHARGE. DISCUSSED WITH RN AND ORDER WRITTEN. Neurologic: Alert, Oriented. Psychiatric: Cooperative, Appropriate mood & affect. Cardiac Markers (Current Encounter/Past 24 Hours) No Cardiac Marker Results Found (Past 24 Hours) Telemetry: SR 70-80's Procedures this admission: 11/30/2020 Conclusion: Successful Procedure(s) of: 1. Pulmonary vein isolation 2. Mitral isthmus line 3 Roof line ablation 4 CFAE ablation 5 Posterior wall isolation 6 SVC isolation for right-sided triggers 7 Isuprel testing 8 LV pacing and recording Discharge Diagnoses: 1. Successful PVI/ablation Discharge Medications: 1. Alive Mens Energy Oral Tablet; TAKE 1 TABLET DAILY 2. Eliquis 5 MG Oral Tablet; 1 TABLET TWICE DAILY 3. Flecainide Acetate 50 MG Oral Tablet; TAKE 1 TABLET EVERY 12 HOURS DAILY 4. Magnesium 400 MG Oral Tablet; take 1 tablet a day 5. Metoprolol Tartrate 25 MG Oral Tablet; TAKE 1/2 (ONE-HALF) TABLET BY MOUTH TWICE DAILY 6. Protonix 40 mg po daily - NEW MEDICATION SCRIPT SENT IN Allergies (1) Active Reaction penicillin Anaphylaxis Disposition: Patient sent home in stable condition with family support. Discharge Instructions: Cardiac Diet. Post Cath Instructions. Activity as tolerated. Followup Appointments: PCP in 5 - 7 days. Primary Sr. Pricing Analyst in [address] Mesa in 1 month Patient has been instructed on and verbalized an understanding of the above discharge instructions. Plan has been discussed and is in agreement with Dr. Bonita Herbert, RN documenting for Dr. Mesa Electronically signed by [facility] Conversion Latex Thread Machine Operator Cerner at 08/26/2022 1:16 PM CDT documented in this encounter Plan of Treatment Upcoming Encounters Date Type Department Care Team (Late st Contact Info) Description 01/19/2025 10:45 AM EDT Office Visit [facility] - [address] [facility] [address] [place] [address] Octavio Larsen MD [address] [place] [address] 04/20/2025 10:45 AM EST Office Visit [facility] Electrophysiology [address] [place] [phone] Nelda Mesa MD [address] [facility] [address] [place], [place] [id number] documented as of this encounter Visit Diagnoses Not on filedocumented in this encounter Care Teams Supervisor Home Economics Relationship Specialty Start Date End Date Balaji Rasmussen MD [address] [place] [address] PCP - General Family Medicine 05/10/22 documented as of this encounter
--- OUTSIDE RECORDS SUMMARY | 2025-01-06 07:02 | XMS_ITS | Encounter Summary ---
Author Organization [email or web address] ([place], [place], [place], [place]) Address [address] [place] [address] Care Team Providers Care Crown Presser Name Role Phone Balaji Rasmussen MD Primary Care Provider [phone] Encounter Details Date Type Department Care Team (Late st Contact Info) Description 10/22/2018 Transcribed Document [facility] Family Medicine [address] [place] [address] ProviderMahi MD [address] [place] [address] Social History Tobacco Use Types Packs/Day Years Used Date Smoking Tobacco: Never Assessed Sex and Gender Information Value Date Recorded Sex Assigned at Not on file Legal Sex Male 5:42 PM CDT Gender Identity Not on file Sexual Orientation Not on file documented as of this encounter Miscellaneous Notes * Cerner Conversion Note - Mahi ProviderMD - 10/22/2018 3:34 PM CDT Admission History, Adult Entered On: 10/22/2018 15:45 EDT Performed On: 10/22/2018 15:34 EDT by Arnulfo Young RN Advance Directive Patient has Advance Directive *Q : No, patient refuses Advance Directive information Arnulfo Young RN - 10/22/2018 15:34 EDT Anesthesia/Transfusion History Family History of Anesthesia Reaction : No prior transfusion(s) Blood Transfusion Acceptable to Patient : Yes Transfusion History : Prior anesthesia without reaction Family History of Anesthesia Reaction : None Arnulfo Young RN - 10/22/2018 15:34 EDT Anticipated Discharge Needs Discharge To, Anticipated : Home Anticipated Discharge Needs at This Time : None Arnulfo Young RN - 10/22/2018 15:34 EDT Education Topics, Admission Orientation DCP GENERIC CODE Advance Directives : Verbalizes understanding Allergy Band Applied : Verbalizes understanding Assessment/Vital Signs : Verbalizes understanding Bed Control : Verbalizes understanding Call Light : Verbalizes understanding Confidentiality : Verbalizes understanding Diet/Room Service : Verbalizes understanding Fall Prevention : Verbalizes understanding Hand Hygiene : Verbalizes understanding Healthcare Provider Visit : Verbalizes understanding ID Band Applied : Verbalizes understanding Isolation Precautions : Verbalizes understanding Orientation to Room/Bathroom : Verbalizes understanding Patient Bill of Rights : Verbalizes understanding Patient Rights/Responsibilities : Verbalizes understanding Patient Safety : Verbalizes understanding Personal Privacy Code : Verbalizes understanding Rapid Response Initiated by Patient/Family : Verbalizes understanding Rounding : Verbalizes understanding Siderails use/risks : Verbalizes understanding Skin Precautions : Verbalizes understanding Smoking Policy : Verbalizes understanding Telemetry Monitoring : Verbalizes understanding Television/Phone : Verbalizes understanding Visiting Policy : Verbalizes understanding Arnulfo Young RN - 10/22/2018 15:34 EDT Functional Assessment Living Situation : Home Patient Lives With : Spouse Persons Assisting Patient at Home : Spouse Current Daily Living Assistance : None Sensory Deficits : None Mobility Assistance Prior to Admission : Independent Current Home Treatments : None Home Equipment : None Arnulfo Young RN - 10/22/2018 15:34 EDT General Info Arrived From : Other: PACU Mode of Arrival on Unit : Stretcher Patient Arrival Date/Time : 10/22/2018 15:15 EDT Legal Guardian : Spouse Want Family/Rep/Phys Notified of Admit : No Emergency Contact #1 : Suzanne Rodriguez Emergency Contact #1 Emergency Contact #1 Relationship : spouse Emergency Contact #2 : none Emergency Contact #2 Phone Number : none Emergency Contact #2 Relationship : none Chief Complaint : Here for Ep study with possible ablation, ANDREA Information Obtained From : Patient, Spouse Primary Language : Upper Sorbian Preferred Communication Mode : Verbal Communication Barrier : None Objects to Sharing Info w Family : No Arnulfo Young RN - 10/22/2018 15:34 EDT Fall Risk Scales ABCs Fall Injury Risk Identification : Coagulation, Surgery ABC Fall Injury Risk : Moderate to high injury risk Injury Moderate to High Risk Interventions : Fall contract/letter per facility policy, Transport methods appropriate to patient, Visual cues in place CHOU Hx Falls Immediate/Within 3 Months : No Chou Secondary Diagnosis : Yes CHOU Use of Ambulatory Aid : None CHOU IV Therapy or IV Access : Yes Chou Gait/Transferring : Weak Chou Mental Status : Oriented to own ability Chou Fall Risk Score : 45 CHOU Fall Scale Risk Level : 25-45 Medium Risk [place] Fall Interventions : Adequate lighting, Assistive devices within reach, Bed in low position, Call device within reach, Fall prevention handout/education per facility policy, Hourly comfort/safety rounds, Non-slip footwear, Personal items within reach, Reinforced to call for assistance before getting out of bed, Room free of clutter/spills, Upper side-rails up, Wheels locked, Wires/Cords secured Fall Moderate to High Risk Interventions : Fall contract/letter per facility policy, Transport methods appropriate to patient, Visual cues in place Arnulfo Young RN - 10/22/2018 15:34 EDT Fall Risk Education Grid Alarms : Verbalizes understanding Assistive Equipment Use : Verbalizes understanding Bed Height/Stabilization : Verbalizes understanding Call light use : Verbalizes understanding Door Open : Verbalizes understanding Environmental Management : Verbalizes understanding Eyeglasses Use : Verbalizes understanding Fall Community Resources : Verbalizes understanding Fall Contract/Letter : Verbalizes understanding Fall Prevention in the Home : Verbalizes understanding Fall Prevention Protocol : Verbalizes understanding Hearing Aid Use : Verbalizes understanding Home Risk Assessment : Verbalizes understanding Need Constant Observation : Verbalizes understanding Night Light Use : Verbalizes understanding Nonskid Footwear Use : Verbalizes understanding Notification of Staff When Leaving : Verbalizes understanding Orthostatic Hypotension Precautions : Verbalizes understanding Personal Article Availability : Verbalizes understanding Prevention Responsibility Family : Verbalizes understanding Prevention Responsibility Patient : Verbalizes understanding Risk Alert Methods : Verbalizes understanding Risk Factors : Verbalizes understanding Safety Aids : Verbalizes understanding Siderails use/risks : Verbalizes understanding Special Assistive Devices : Verbalizes understanding Staff Responsiveness : Verbalizes understanding Symptom Identification & Action Plan *Q : Verbalizes understanding Symptom Reporting : Verbalizes understanding Toileting Schedule : Verbalizes understanding Transfer/Mobility Techniques : Verbalizes understanding Urinal/Bedpan Availability : Verbalizes understanding Wait for Assistance : Verbalizes understanding Wheelchair Safety : Verbalizes understanding Arnulfo Young RN - 10/22/2018 15:34 EDT Barriers to Learning : None evident Individuals Taught : Patient, Spouse Readiness to Learn : Cooperative Highest Level of Education : Some college Baseline Knowledge of Topic : Good Teaching Method : Explanation Learning Style Preferences Family : None Learning Style Preferences Patient : Verbal explanation Teaching Evaluation : Verbalizes understanding Fall Risk Scale Calc Temp : 0 Arnulfo Young RN - 10/22/2018 15:34 EDT Health Histories Smoking Status : Former smoker, quit more than 30 days ago Smokeless Tobacco Status : Never Arnulfo Young RN - 10/22/2018 15:34 EDT Social History (As Of: 10/22/2018 15:45:46 EDT) Tobacco: Former smoker, quit more than [...] (Last Updated: 10/22/2018 07:06:47 EDT by VICENTA MELLO, CLINT) Substance Abuse: Drug Use Hx: No. (Last Updated: 10/22/2018 07:06:58 EDT by VICENTA MELLO, CLINT) Height and Weight, Clinical Dosing Height Source : Stated Height Entry Format : [place] Height, Feet : 6 ft(Converted to: 183 cm, 72 Inch) Height, Inches : 6 Inch(Converted to: 0 ft 6 Inch, 15.24 cm) Clinical Height : 198.12 cm Weight Source : Standing scale Weight Entry Format : [place] Clinical Dosing Weight : 107.73 kg Weight, Pounds : 237 lb Body Surface Area (BSA) : 2.43 m2 Body Mass Index : 27.4 kg/m2 (HI) [place] Body Weight : 90 kg Arnulfo Young RN - 10/22/2018 15:34 EDT Infectious Disease History Infectious Disease History : None Active Surveillance Screen Assessment : Patient does not meet any of above criteria Active Surveillance Screen Negative : Yes Isolation Needed : Standard Fever/Chills Last 48 Hours : No Travel To Regions with Travel Advisories : No Travel Outside .S. Within Last 30 Days : No Contact With Traveler to Advisory Region : No Tuberculosis Symptoms : None Arnulfo Young RN - 10/22/2018 15:34 EDT Tetanus Immunization Status Previous Tetanus Immunizations : No qualifying data available. Tetanus Immunization : Less than 5 years Arnulfo Young RN - 10/22/2018 15:34 EDT Influenza Vaccine Asmt, Adult Previous Vaccines from Immunization Schedule : No qualifying data available. Influenza Immunization, Current Season : Yes Arnulfo Young RN - 10/22/2018 15:34 EDT Pneumococcal Vaccine Previous Vaccines from Immunization Schedule : No qualifying data available. Pneumonia Immunization Received : Unknown Pneumococcal Risk Assessment < Age 65 : None Arnulfo Young RN - 10/22/2018 15:34 EDT Order Details Order Detail : N/A Arnulfo Young RN - 10/22/2018 15:34 EDT Nutrition History Feeding Ability : Independent Adaptive Feeding Equipment : None Adaptive Feeding Equipment : Regular Oral Medication Administration : By mouth Eating Poorly Due to Decreased Appetite : No Unplanned Weight Loss in Past 3-6 Months : No Malnutrition Screening Tool Total(mal) : 0 Malnutrition Screening Tool Risk Level : Patient not at risk Arnulfo Young RN - 10/22/2018 15:34 EDT Psychosocial History Does Someone Depend on You for Care? : No Do You Have a History of the Following? : Patient denies history Currently in Unsafe Situation : No Restraining Order Against Another Person : No Do You Have a Support System? : Yes Who is Your Support System? : Family Hospital/DC Financial Concerns : No Stressors Affecting Hospitalization/DC : No Tried to Harm Yourself in the Past? : No Thoughts of Harming/Killing Yourself : No rAnulfo Young RN - 10/22/2018 15:34 EDT Sleep Apnea Risk Assmt Hx of [...] Sleep Apnea Risk Level Score : 5 Arnulfo Young RN - 10/22/2018 15:34 EDT Spiritual/Cultural Needs Significant Loss/Crisis in Past 3 Years : No Any Spiritual/Cultural Needs or Requests : No Restorationism Preference : Orthodoxy ([employer]) Arnulfo Young RN - 10/22/2018 15:34 EDT Valuables and Belongings Valuables and Belongings : Clothing, Jewelry, Personal devices, Personal items, No assistive devices, No respiratory devices, No medications Clothing : Common streetwear Clothing Disposition : Bedside Personal Device Disposition : Bedside Jewelry : Ring Jewelry Disposition : With family Personal Devices : Glasses Personal Items : Stone, Cell phone, Credit cards, Wallet Personal Items Disposition : With family Arnulfo Young RN - 10/22/2018 15:34 EDT Electronically signed by [facility] Conversion Hat And Cap Opener Cerner at 08/21/2022 2:55 PM CDT documented in this encounter Plan of Treatment Upcoming Encounters Date Type Department Care Team (Late st Contact Info) Description 01/19/2025 10:45 AM EDT Office Visit [facility] - [address] [place] [address] Octavio Larsen MD [address] [facility] [address] [place] [phone] 04/20/2025 10:45 AM EST Office Visit [facility] Electrophysiology [address] [place] [phone] Diogo Mesa MD [address] [place] [address] [address] [place] [address] documented as of this encounter Visit Diagnoses Not on filedocumented in this encounter Care Teams Crown Presser Relationship Specialty Start Date End Date Balaji Rasmussen MD [address] [place] [address] PCP - General Family Medicine 05/10/22 documented as of this encounter
--- OUTSIDE RECORDS SUMMARY | 2025-01-06 07:02 | XMS_ITS | Encounter Summary ---
Author Organization [employer] ([place], [place], [place], [place]) Address [address] [place] [address] Care Team Providers Care Wood Hacker Name Role Phone Balaji Rasmussen MD Primary Care Provider [phone] [phone] Encounter Details Date Type Department Care Team (Late st Contact Info) Description 11/30/2020 Transcribed Document [facility] [place] [address] [place] [address] ProviderMahi MD [address] [place], [place] [address] Social History Tobacco Use Types Packs/Day Years Used Date Smoking Tobacco: Never Assessed Sex and Gender Information Value Date Recorded Sex Assigned at Not on file Legal Sex Male 5:42 PM CDT Gender Identity Not on file Sexual Orientation Not on file documented as of this encounter Miscellaneous Notes * Cerner Conversion Note - Historical ProviderMD - 11/30/2020 1:10 PM CDT Patient: LAITH CORTEZ Age: 60 Years Sex: Male : 1960 Manager Child: Diogo Mesa MD Indication: 60 yo essentially with flutter and atrial fibrillation despite flecainide very symptomatic with his arrhythmia. He had a prior A. fib ablation. He is here for an AFib and atrial flutter ablation under eliquis not taken this morning. Procedure report: After written informed consent was obtained, the patient was brought to the Electrophysiology Laboratory in a fasting state. Sedation was managed by general anesthesia. The right and left groins were prepped and draped in the usual manner. 15 ml of 1% lidocaine was infiltrated in the groin for local anesthesia. The following catheters were placed using ultrasound guidance. 1)8 Fr in the right femoral vein. a venous sheath 8Fr in the right femoral vein with a long sheath for transeptal access and pentarray and 3.5 mm irrigated F/J ablation catheter 2.)8 Fr in the left femoral vein to advance a 6 Fr decapolar deflectable catheter which was placed in the CS for left atrial pacing and recording. 3.)11 Fr in the left femoral vein. This was used to 10 Fr phased area ICE catheter. The ICE catheter was used to inspect the heart prior to ablation. There was no pericardial effusion present prior to ablation. Systemic anticoagulation with IV heparin boluses was administered immediately following sheaths insertion to achieve a target ACT greater around 250 sec Next, the 10 Fr ICE catheter was used to assist with transseptal puncture and ablation. ICE imaging was used to confirm the presence of typical anatomy consisting of two left and two right pulmonary veins entering the left atrium. Next, using ultrasound guidance to confirm position, transseptal puncture was achieved using the Whiphand system. Successful puncture was verified by ultrasound and fluoroscopy. Systemic anticoagulation with IV heparin was increased following the trans-septal puncture to achieve a target ACT greater around 350 sec. A Pentarray catheter was advanced through the sheath and mapping of the LA was performed to create a 3D CARTO map. There was a recovery of conduction in the right veins going deep in the right superior vein. Furthermore, there was no roofline that was completed. The prior line from the right superior pulmonary vein to the anulus showed a lot of breakthrough of conduction and ST line was not complete close to the anulus. Multiple area of CFAE were noted. Next, RF ablation was then performed beginning with wide antral lesions set around the right pulmonary veins and these were isolated. This was done under direct monitor of the temperature in the esophagus that raised very easily on the posterior wall throughout the left and the right side as well as the middle. Ablation was discontinued for any significant raise of the temperature, which occurrence several times during the case. However we were able to move the esophagus with the esosure right and left while on the posterior wall. Next a roofline was performed and he obtained bidirectional block. Then an inferior line was performed as well as ablation in posterior wall that was isolated with no recovery with adenosine. Next, the mitral line going from the RSPV to the anterior anulus was performed. Using the pentarray, we could confirm a block across that line, with a late activation of the atria above the line. CFAE area were also targeted. Isuprel was then infused at 2 mics but no arrhythmia or PACs were observed and we cannot increase it because of the blood pressure. The ablation catheter was then placed in the left ventricle. Pacing was performed in the left ventricle demonstrated no retrograde conduction. The sheath was retracted from the left atrium into the right atrium. The cavo tricuspid isthmus was blocked. Then the superior vena cava was mapped and isolated to prevent any focal atrial tachycardia coming from that area. Heparin was discontinued. ICE was used to verify the absence of a post-procedure pericardial effusion. All catheters were withdrawn and protamine sulfate was administered to reverse anticoagulation. The sheaths were all removed and Figure of 8 sutures were placed in each groin to achieve hemostasis. Complications: No immediate complications were observed. There was no pericardial effusion at the end of the procedure. Blood loss around 20 mL. Conclusion: Successful Procedure(s) of: 1. Pulmonary vein isolation 2. Mitral isthmus line 3 Roof line ablation 4 CFAE ablation 5 Posterior wall isolation 6 SVC isolation for right-sided triggers 7 Isuprel testing 8 LV pacing and recording Plan: Monitor overnight. documented in this encounter Plan of Treatment Upcoming Encounters Date Type Department Care Team (Late st Contact Info) Description 01/19/2025 10:45 AM EDT Office Visit [facility] - [address] [facility] [address] [place] [address] Octavio Larsen MD [address] [place] [address] 04/20/2025 10:45 AM EST Office Visit [facility] Electrophysiology [address] [place] [address] Diogo Mesa MD [address] [facility] [address] [place] [address] documented as of this encounter Visit Diagnoses Not on filedocumented in this encounter Care Teams Wood Hacker Relationship Specialty Start Date End Date Balaji Rasmussen MD [address] [place] [address] PCP - General Family Medicine 05/10/22 documented as of this encounter
--- OUTSIDE RECORDS SUMMARY | 2025-01-06 07:02 | XMS_ITS | Encounter Summary ---
Author Organization [employer] ([place], [place], [place], [place]) Address [address] [place] [address] Care Team Providers Care Pilot Fuel Engineer Name Role Phone Balaji Rasmussen MD Primary Care Provider [phone] [phone] Encounter Details Date Type Department Care Team (Late st Contact Info) Description 11/30/2020 Transcribed Document [facility] [address] [place] [address] ProviderMahi MD [address] [place], [place] [address] Social History Tobacco Use Types Packs/Day Years Used Date Smoking Tobacco: Never Assessed Sex and Gender Information Value Date Recorded Sex Assigned at Not on file Legal Sex Male 5:42 PM CDT Gender Identity Not on file Sexual Orientation Not on file documented as of this encounter Miscellaneous Notes * Cerner Conversion Note - Mahi ProviderMD - 11/30/2020 4:25 PM CDT Meds to Bed Enrollment Entered On: 11/30/2020 16:39 EDT Performed On: 11/30/2020 16:25 EDT by MIKE LLOYD RPh Meds to Bed Enrollment Patient Enrollment Decision: : No/do not enroll in meds to bed program Reason for Declining Meds to Bed Program: : Prefer to use home pharmacy MIKE LLOYD RPh - 11/30/2020 16:39 EDT documented in this encounter Plan of Treatment Upcoming Encounters Date Type Department Care Team (Late st Contact Info) Description 01/19/2025 10:45 AM EDT Office Visit [facility] - [address] [place] [address] Octavio Larsen MD [address] [facility] [address] [place] [address] 04/20/2025 10:45 AM EST Office Visit [facility] Electrophysiology [address] [place] [address] Diogo Mesa MD [address] [facility] [address] [place] [address] documented as of this encounter Visit Diagnoses Not on filedocumented in this encounter Care Teams Pilot Fuel Engineer Relationship Specialty Start Date End Date Balaji Rasmussen MD [address] [place] [address] PCP - General Family Medicine 05/10/22 documented as of this encounter
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
--- OUTSIDE RECORDS SUMMARY | 2025-01-06 07:02 | XMS_ITS | Clinical Summary ---
Author Organization [employer] ([place], [place], [place], [place]) Address [address] [place] [address] Care Team Providers Care Surgical Nurse Name Role Phone Balaji Rasmussen MD Primary Care Provider [phone] [phone] Allergies Active Allergy Reactions Criticality Noted Date [...] Date Billy rded Speak language other than Egyptian at home Not on file 05/17/2023 Want [...] Description 01/19/2025 10:45 AM EDT Office Visit [facility] - [address] [place] [address] Octavio Larsen MD [address] [facility] [address] [place] [address] 04/20/2025 10:45 AM EST Office Visit [facility] Electrophysiology [address] [place] [address] Diogo Mesa MD [address] [facility] [address] [place] [address] Health Maintenance Due Date Last Done Comments CT Colonography 1960 Colonoscopy 1960 Colorectal Cancer Screening 1960 FOBT/FIT 1960 Fit-DNA (Cologuard) 1960 Sigmoidoscopy 1960 Depression Screening (12+) 1972 HIV Screening 10/05/1975 Hepatitis C Screening 1978 Lipid Panel 10/05/1995 Respiratory Syncytial Virus (RSV) Adult or (1 - Risk 60-74 years 1-dose series) 2020 Pneumococcal 50+ years (2 of 2 - PCV) 09/18/2022 09/18/2021 COVID-19 VACCINE (2023-2 5 season) 2024 02/14/2022, 08/01/2021, 02/22/2021, Additional history exists Influenza Vaccine (#1) 2025 , 02/11/2017, 02/01/2016, Additional history exists Tobacco Cessation Counseling and Screening (12+) 04/21/2025 04/21/2024 DTAP/TDAP/TD VACCINES (4 - T d or Tdap) 08/21/2031 08/20/2021, 02/06/2018, 07/08/1996 Shingles Vaccine (Zoster) Completed 07/02/2020, 05/2019 Insurance N [place] [id number] BLUE CROSS/BLUE SHIELD Care Teams Surgical Nurse Relationship Specialty Start Date End Date Balaji Rasmussen MD [address] [place] [address] PCP - General Family Medicine 05/10/22
--- OUTSIDE RECORDS SUMMARY | 2025-01-06 07:02 | XMS_ITS | Encounter Summary ---
Author Organization [employer] ([place], [place], [place], [place]) Address [address] [place] [address] Care Team Providers Care Computer Systems Software Architect Name Role Phone Balaji Rasmussen MD Primary Care Provider [phone] [phone] Encounter Details Date Type Department Care Team (Late st Contact Info) Description 10/22/2018 Transcribed Document [facility] Family Medicine [address] [place] [address] ProviderMahi MD [address] [place] [address] Social History Tobacco Use Types Packs/Day Years Used Date Smoking Tobacco: Never Assessed Sex and Gender Information Value Date Recorded Sex Assigned at Not on file Legal Sex Male 5:42 PM CDT Gender Identity Not on file Sexual Orientation Not on file documented as of this encounter Miscellaneous Notes * Cerner Conversion Note - Historical ProviderMD - 10/22/2018 7:05 AM CDT Pre Procedure Adult Entered On: 10/22/2018 7:15 EDT Performed On: 10/22/2018 7:05 EDT by VICENTA MELLO RN Height and Weight, Clinical Dosing Height Source : Stated Height Entry Format : [place] Height, Feet : 6 ft(Converted to: 183 cm, 72 Inch) Height, Inches : 6 Inch(Converted to: 0 ft 6 Inch, 15.24 cm) Clinical Height : 198.12 cm Weight Source : Standing scale Weight Entry Format : [place] Clinical Dosing Weight : 107.73 kg Weight, Pounds : 237 lb Body Surface Area (BSA) : 2.43 m2 Body Mass Index : 27.4 kg/m2 (HI) [place] Body Weight : 90 kg VICENTA MELLO RN - 10/22/2018 7:05 EDT Health Histories Smoking Status : Former smoker, quit more than 30 days ago Smokeless Tobacco Status : Never VICENTA MELLO RN - 10/22/2018 7:05 EDT Social History (As Of: 10/22/2018 07:15:26 EDT) Tobacco: Former smoker, quit more than 30 days ago Smoking Status. Years of Use: 15. Packs/Tins Daily: 0.5. Last Used: quit 2009. (Last Updated: 10/22/2018 07:06:30 EDT by VICENTA MELLO RN) Alcohol: Alcohol Use History No. (Last Updated: 10/22/2018 07:06:47 EDT by VICENTA MELLO RN) Substance Abuse: Drug Use Hx: No. (Last Updated: 10/22/2018 07:06:58 EDT by VICENTA MELLO RN) Infectious Disease History Infectious Disease History : None Fever/Chills Last 48 Hours : No Travel To Regions with Travel Advisories : No Travel Outside [place] Within Last 30 Days : No Contact With Traveler to Advisory Region : No Tuberculosis Symptoms : None VICENTA MELLO RN - 10/22/2018 7:05 EDT Anesthesia/Transfusion History Family History of Anesthesia Reaction : No prior transfusion(s) Blood Transfusion Acceptable to Patient : Yes Transfusion History : Prior anesthesia without reaction Family History of Anesthesia Reaction : None VICENTA MELLO RN - 10/22/2018 7:05 EDT Functional Assessment Living Situation : Home Patient Lives With : Spouse Persons Assisting Patient at Home : Spouse Current Daily Living Assistance : None Sensory Deficits : None Mobility Assistance Prior to Admission : Independent Current Home Treatments : None Home Equipment : None VICENTA MELLO RN - 10/22/2018 7:05 EDT Psychosocial History Does Someone Depend on You for Care? : No Do You Have a History of the Following? : Patient denies history Currently in Unsafe Situation : No Restraining Order Against Another Person : No Tried to Harm Yourself in the Past? : No Thoughts of Harming/Killing Yourself : No VICENTA MELLO RN - 10/22/2018 7:05 EDT Advance Directive Patient has Advance Directive *Q : No, patient refuses Advance Directive information VICENTA MELLO RN - 10/22/2018 7:05 EDT Spiritual/Cultural Needs Significant Loss/Crisis in Past 3 Years : No Any Spiritual/Cultural Needs or Requests : No Muslim Preference : Gnosticism ([employer]) VICNETA MELLO RN - 10/22/2018 7:05 EDT Teaching/Learning Assessment Barriers To Learning : None evident Readiness to Learn : Cooperative Learning Style Preferences Patient : Verbal explanation VICENTA MELLO RN - 10/22/2018 7:05 EDT Education Topics, Periop Preadmission Perioperative Education Grid IV's : Verbalizes understanding NPO Status/Directions : Verbalizes understanding Responsible Adult : Verbalizes understanding VICENTA MELLO RN - 10/22/2018 7:05 EDT General Info Arrived From : Home Mode of Arrival on Unit : Ambulatory Want Family/Rep/Phys Notified of Admit : No Emergency Contact #1 : Suzanne Emergency Contact #1 Emergency Contact #1 Relationship : spouse Emergency Contact #2 : none Emergency Contact #2 Phone Number : none Emergency Contact #2 Relationship : none Chief Complaint : here for Ep study with possible ablation, ANDREA Information Obtained From : Patient Primary Language : Northern Irish Preferred Communication Mode : Verbal Communication Barrier : None Objects to Sharing Info w Family : No VICENTA MELLO RN - 10/22/2018 7:05 EDT Vital Measurements Temperature Source : Temporal artery scanning Temperature Mode : Fahrenheit Temperature, Fahrenheit : 98.2 Deg F Clinical Temperature, C : 36.8 Deg C Pulse Method : Non-Invasive BP Device Peripheral Pulse Rate : 62 bpm Respiratory Rate : 16 Breaths/Min Blood Pressure Location : Arm, right upper Blood Pressure Source : Non-Invasive BP Device Systolic Blood Pressure : 137 mmHg Diastolic Blood Pressure : 89 mmHg Oxygen Saturation : 99 % Oxygen Therapy Mode : Room air VICENTA MELLO RN - 10/22/2018 7:05 EDT Sleep Apnea Risk Assmt Hx of [...] Score : 5 VICENTA MELLO RN - 10/22/2018 7:05 EDT Mukesh Scale Mukesh Sensory Perception : No impairment Mukesh Moisture : Rarely moist Mukesh Activity : Walks frequently Mukesh Mobility : Slightly limited Mukesh Nutrition : Adequate Mukesh Friction and Shear : Potential problem Mukesh Score : 20 VICENTA MELLO RN - 10/22/2018 7:05 EDT Oxygen Therapy Oxygen Therapy Mode : Room air VICENTA MELLO RN - 10/22/2018 7:05 EDT Pain Assessment Pain Assessment : Initial assessment Pain Scale Used : 0-10 Scale VICENTA MELLO RN - 10/22/2018 7:05 EDT Fall Risk Scales ABCs Fall Injury Risk Identification : Coagulation ABC Fall Injury Risk : Moderate to high injury risk CHOU Hx Falls Immediate/Within 3 Months : No Chou Secondary Diagnosis : No CHOU Use of Ambulatory Aid : None CHOU IV Therapy or IV Access : No Chou Gait/Transferring : Normal, bedrest, immobile Chou Mental Status : Oriented to own ability Chou Fall Risk Score : 0 CHOU Fall Scale Risk Level : 0-24 Low Risk [place] Fall Interventions : Adequate lighting, Bed in low position, Hourly comfort/safety rounds, Personal items within reach, Room free of clutter/spills, Upper side-rails up, Wires/Cords secured VICENTA MELLO RN - 10/22/2018 7:05 EDT Valuables and Belongings Valuables and Belongings : Clothing, Jewelry, Personal devices, Personal items, No assistive devices, No respiratory devices, No medications Clothing : Common streetwear Clothing Disposition : Bedside Personal Device Disposition : Bedside Jewelry : Ring Jewelry Disposition : With family Personal Devices : Glasses Personal Items : Stone, Cell phone, Credit cards, Wallet Personal Items Disposition : With family VICENTA MELLO RN - 10/22/2018 7:05 EDT Pain Scale Intensity : 0 VICENTA MELLO RN - 10/22/2018 7:05 EDT Image 4 - Images currently included in the form version of this document have not been included in the text rendition version of the form. Ciaran Coma Ciaran Best Motor Response : Obey commands Ciaran Best Verbal Response : Oriented Ciaran Eye Opening Response : Spontaneous Ciaran Coma Score : 15 VICENTA MELLO RN - 10/22/2018 7:05 EDT Electronically signed by Meng, [facility] Conversion Temperature Logging Operator Cerner at 08/21/2022 2:54 PM CDT documented in this encounter Plan of Treatment Upcoming Encounters Date Type Department Care Team (Late st Contact Info) Description 01/19/2025 10:45 AM EDT Office Visit [facility] [address] [place] [phone] Octavio Larsen MD [address] [facility] [address] [place] [address] 04/20/2025 10:45 AM EST Office Visit [facility] Electrophysiology [address] [place] [address] [place] [address] [place] [address] [address] [place] [address] documented as of this encounter Visit Diagnoses Not on filedocumented in this encounter Care Teams Computer Systems Software Architect Relationship Specialty Start Date End Date Balaji Rasmussen MD [address] [place] [address] PCP - General Family Medicine 05/10/22 documented as of this encounter
--- OUTSIDE RECORDS SUMMARY | 2025-01-06 07:03 | XMS_ITS | Encounter Summary ---
Author Organization [employer] ([place], [place], [place], [place]) Address [address] [place] [address] Care Team Providers Care Casing Puller Name Role Phone Balaji Rasmussen MD Primary Care Provider [phone] [phone] Encounter Details Date Type Department Care Team (Late st Contact Info) Description 12/01/2020 Transcribed Document [facility] Family Medicine [address] [place] [address] ProviderMahi MD [address] [place], [place] [address] Social History Tobacco Use Types Packs/Day Years Used Date Smoking Tobacco: Never Assessed Sex and Gender Information Value Date Recorded Sex Assigned at Not on file Legal Sex Male 5:42 PM CDT Gender Identity Not on file Sexual Orientation Not on file documented as of this encounter Miscellaneous Notes * Cerner Conversion Note - Historical ProviderMD - 12/01/2020 10:33 AM CDT UM Authorization Entered On: 12/01/2020 10:34 EDT Performed On: 12/01/2020 10:33 EDT by Amber Gutierrez Rn-Utilization Review Primary Insurance Authorization Authorization and Policy Numbers : Insurance 1 Health Plan: [employer] [facility] Policy Number: [id number] Authorization Number: [id number] Insurance [facility] Policy Number: [id number] Authorized Service Begin Date-Primary : 11/30/2020 EDT Historical Authorization Comments-Primary : No Authorization Comments Found Amber Gutierrez, Rn-Utilization Review - 12/01/2020 10:33 EDT Electronically signed by Meng [facility] Conversion Concrete Technician Cerner at 08/26/2022 1:52 PM CDT documented in this encounter Plan of Treatment Upcoming Encounters Date Type Department Care Team (Late st Contact Info) Description 01/19/2025 10:45 AM EDT Office Visit [facility] - [facility] [address] [facility] [address] [place] [address] Octavio Larsen MD [address] [facility] [address] [place] [address] 04/20/2025 10:45 AM EST Office Visit [facility] Electrophysiology [address] [place] [address] [place] [address] [place] [address] [address] [place] [id number] documented as of this encounter Visit Diagnoses Not on filedocumented in this encounter Care Teams Casing Puller Relationship Specialty Start Date End Date Balaji Rasmussen MD [address] [place] [address] PCP - General Family Medicine 05/10/22 documented as of this encounter
--- OUTSIDE RECORDS SUMMARY | 2025-01-06 07:03 | XMS_ITS | Encounter Summary ---
Author Organization [email or web address] ([place], [place], [place], [place]) Address [address] [place] [address] Care Team Providers Care Well Service Derrick Worker Name Role Phone Balaji Rasmussen MD Primary Care Provider [phone] Encounter Details Date Type Department Care Team (Late st Contact Info) Description 12/01/2020 Transcribed Document [facility] [place] [place] [facility] [place] [address] ProviderMahi MD [address] [place] [id number] Social History Tobacco Use Types Packs/Day Years Used Date Smoking Tobacco: Never Assessed Sex and Gender Information Value Date Recorded Sex Assigned at Not on file Legal Sex Male 5:42 PM CDT Gender Identity Not on file Sexual Orientation Not on file documented as of this encounter Miscellaneous Notes * Cerner Conversion Note - Mahi ProviderMD - 12/01/2020 8:30 AM CDT Final Discharge Planning Entered On: 12/01/2020 8:30 EDT Performed On: 12/01/2020 8:30 EDT by MAC FALCON, RN-Rope Coiling Machine Operator Final Discharge Planning Discharge Arrangements : Patient Post-Acute Information Patient Name: LAITH CORTEZ Gender: Male : 60 Age: 60 Years No Post-Acute Placement(s) Listed No Post-Acute Service(s) Listed No [place] Referral(s) Listed Patient Offered Choice/Affiliations Explained : No Designation of Choice Signed : No Transportation Needs : Family/Friend Follow Up Appointment Scheduled : Yes Is Patient High/Moderate Readmission Risk? : No Patient/Family Notified of Plan : Yes Is Patient Ready for Discharge? : Yes Discharge To Care Management : Home/Residential/Skilled Nursing or Self Care -01 MAC FALCON, RN-Rope Coiling Machine Operator - 12/01/2020 8:30 EDT Electronically signed by Meng [facility] Conversion Lacquer Spray Booth Operator Cerner at 08/26/2022 1:46 PM CDT documented in this encounter Plan of Treatment Upcoming Encounters Date Type Department Care Team (Late st Contact Info) Description 01/19/2025 10:45 AM EDT Office Visit [facility] [address] [facility] [address] [place] [phone] Octavio Larsen MD [address] [facility] [address] [place] [address] 04/20/2025 10:45 AM EST Office Visit [facility] Electrophysiology [address] [place] [phone] [place] [address] [place] [address] [address] [place] [address] documented as of this encounter Visit Diagnoses Not on filedocumented in this encounter Care Teams Well Service Derrick Worker Relationship Specialty Start Date End Date Balaji Rasmussen MD [address] [place] [address] PCP - General Family Medicine 05/10/22 documented as of this encounter
--- OUTSIDE RECORDS SUMMARY | 2025-01-06 07:03 | XMS_ITS | Encounter Summary ---
Author Organization [employer] ([place], [place], [place], [place]) Address [address] [place] [address] Care Team Providers Care Emergency Management Program Specialist Name Role Phone Balaji Rasmussen MD Primary Care Provider [phone] Encounter Details Date Type Department Care Team (Late st Contact Info) Description 10/22/2018 Transcribed Document [facility] [place] [address] [place] [address] ProviderMahi MD [address] [place] [address] Social History Tobacco Use Types Packs/Day Years Used Date Smoking Tobacco: Never Assessed Sex and Gender Information Value Date Recorded Sex Assigned at Not on file Legal Sex Male 5:42 PM CDT Gender Identity Not on file Sexual Orientation Not on file documented as of this encounter Miscellaneous Notes * Cerner Conversion Note - Mahi ProviderMD - 10/22/2018 2:39 PM CDT RX Interventions Entered On: 10/23/2018 9:13 EDT Performed On: 10/23/2018 9:12 EDT by MICHAELA CHRISTOPHER [facility] Clinical Interventions Clarify Drug Order : Yes MICHAELA CHRISTOPHER [facility] - 10/23/2018 9:12 EDT Clarify Drug Order Clarify Drug Order, Order : Co-Q 10 1000 mg Wednesdays. I s/w Mis RN 4IC, pt. to go home today - [facility] 0913 10/23/18 Clarify Drug Order, Value : 0 Dollar Clarify Drug Order, Time : 10 Minute(s) CANDIMILTONMICHAELA W, [facility] - 10/23/2018 9:12 EDT documented in this encounter Plan of Treatment Upcoming Encounters Date Type Department Care Team (Late st Contact Info) Description 01/19/2025 10:45 AM EDT Office Visit [facility] - [facility] [address] [facility] [address] [place] [phone] Octavio Larsen MD [address] [place] [address] [place] [address] 04/20/2025 10:45 AM EST Office Visit [facility] Electrophysiology [address] [place] [address] Diogo Mesa MD [address] [place] [address] [address] [place] [address] documented as of this encounter Visit Diagnoses Not on filedocumented in this encounter Care Teams Emergency Management Program Specialist Relationship Specialty Start Date End Date Balaji Rasmussen MD [address] [place] [address] PCP - General Family Medicine 05/10/22 documented as of this encounter
--- OUTSIDE RECORDS SUMMARY | 2025-01-06 07:03 | XMS_ITS | Encounter Summary ---
Author Organization [employer] ([place], [place], [place], [place]) Address [address] [place] [address] Care Team Providers Care Shingle Weaver Name Role Phone Balaji Rasmussen MD Primary Care Provider [phone] Encounter Details Date Type Department Care Team (Late st Contact Info) Description 06/10/2018 Transcribed Document [facility] Cardiology [address] [place] [address] Tj Tenorio MD [address] [facility] [address] [place] [address] Social History Tobacco Use Types Packs/Day Years Used Date Smoking Tobacco: Never Assessed Sex and Gender Information Value Date Recorded Sex Assigned at Not on file Legal Sex Male 5:42 PM CDT Gender Identity Not on file Sexual Orientation Not on file documented as of this encounter Miscellaneous Notes * Cerner Conversion Note - Tj Tenorio MD - 06/10/2018 9:20 AM EST DATE OF STUDY: 06/09/2018 EXERCISE STRESS TEST DIAGNOSIS: Chest pain. READING PHYSICIAN: Dr. Harmon. PROCEDURE IN DETAIL: Patient was brought to the cardiovascular lab and exercised per Gonzalo protocol, exercising 10 minutes and 30 seconds achieving a maximum workload of 12.5 METs. The baseline heart rate was 60 beats per minute augmenting to a maximum of 146 beats per minute representing 89% of maximum age predicted heart rate. Baseline blood pressure is 128/74 mmHg augmenting to a maximum of 195/94 mmHg. Patient tolerated the procedure well. No complaints of chest pain or shortness of breath. Baseline ECG reveals normal sinus rhythm, incomplete right bundle branch block. ECG during stress revealed no diagnostic ST or T-wave changes to represent ischemia and there was no arrhythmias during stress or recovery. IMPRESSION: Negative exercise stress test. 1. Excellent exercise tolerance. 2. Low Manzo treadmill risk score stratification. 3. Stress ECG negative for diagnostic criteria of ischemia. 4. No symptoms of significant shortness of breath or chest pain during stress. Tj Tenorio M.D. Dict: 06/10/2018 08:20:29 Trans: 06/10/2018 09:03:07 CC1: Tj Tenorio M.D. documented in this encounter Plan of Treatment Upcoming Encounters Date Type Department Care Team (Late st Contact Info) Description 01/19/2025 10:45 AM EDT Office Visit [facility] [place] [address] [facility] [address] [place] [address] Octavio Larsen MD [address] [facility] [address] [place] [address] 04/20/2025 10:45 AM EST Office Visit [facility] Electrophysiology [address] [place] [address] [place] [address] [place] [address] [address] [place] [address] documented as of this encounter Visit Diagnoses Not on filedocumented in this encounter Care Teams Shingle Weaver Relationship Specialty Start Date End Date Balaji Rasmussen MD [address] [place], [place] [id number] PCP - General Family Medicine 05/10/22 documented as of this encounter
--- OUTSIDE RECORDS SUMMARY | 2025-01-06 07:03 | XMS_ITS | Encounter Summary ---
Author Organization [employer] ([place], [place], [place], [place]) Address [address] [place] [address] Care Team Providers Care Liberal Arts Dean Name Role Phone Balaji Rasmussen MD Primary Care Provider [phone] Encounter Details Date Type Department Care Team (Late st Contact Info) Description 12/01/2020 Transcribed Document [facility] [address] [place] [address] ProviderMahi MD [address] [place] [address] Social History Tobacco Use Types Packs/Day Years Used Date Smoking Tobacco: Never Assessed Sex and Gender Information Value Date Recorded Sex Assigned at Not on file Legal Sex Male 5:42 PM CDT Gender Identity Not on file Sexual Orientation Not on file documented as of this encounter Miscellaneous Notes * Cerner Conversion Note - Mahi ProviderMD - 12/01/2020 10:52 AM CDT [facility] [place] [address] CORTEZNELLY Felisa :1960 Visit Time:11/30/2020 Your Visit Summary Your Care Team Admitting Physician - NELDA MESA MD-FLO Attending Physician - NELDA MESA MD-CAR Primary Care Physician - CHE CROSS (REF), Referring Physician - ELAYI, NELDA C, MD-CAR Your Diagnosis Paroxysmal atrial fibrillation, Paroxysmal atrial fibrillation These Are Your Goals No qualifying data available. Discharge Vitals Temperature 36.8 ??C Heart Rate (Monitored) 75 Respiratory Rate 16 Blood Pressure 117/73 What to do next Instructions From Your Care Team Discharge Activity: NO HEAVY LIFTING PUSHING OR PULLING FOR 3 DAYS, Discharge Activity: No strenuous activities Diet: Discharge Diet: Regular diet as tolerated Follow-Up Appointments Follow Up with NELDA MESA When 12/29/2020 11:30 AM EDT Comments appointment is made Where: [address] [place] [address] [address] [place] [address]- [facility] (1) Medications What How Much When Instructions Next Dose pantoprazole (Protonix 40 mg oral delayed release tablet) 1 Tablet(s) Oral Every Day Please hop picker at your pharmacy apixaban (Eliquis 5 mg oral tablet) 1 Tablet(s) Oral Two Times A Day omega-3 polyunsaturated fatty acids (Fish Oil) 1,000 Milligram(s) Oral Saturday, Saturday, Saturday acetaminophen (Tylenol) 500 Milligram(s) Oral Every 6 Hours as needed for as needed for pain flecainide 50 Milligram(s) Oral Every 12 hours magnesium oxide 400 Milligram(s) Oral Every Day metoprolol (metoprolol tartrate) 12.5 Milligram(s) Oral Two Times A Day multivitamin (One-A-Day Men's Health Formula oral tablet) 1 Tablet(s) Oral Every Day Take your medications faithfully. Do NOT skip medication. Do NOT stop taking medications without the direction of a physician. Carry a list of your medications with you at all times, and take this medication list with you to your first follow up visit. Report any side effects. Avoid herbal remedies unless discussed with your physician. As part of your treatment plan, your physician may have prescribed a limited course of a controlled substance. This medication may be given to help people with moderate or severe pain or for other medical conditions, but there are risks involved with treatment. Common side effects may include nausea, constipation, drowsiness, sweating, itching, dry mouth, and rash. More serious side effects may include cognitive and motor impairment, like problems with thinking, concentrating, alertness, and movement (e.g. slowed reflexes), and driving and operating heavy machinery can be dangerous. It is important for you to talk to your physician if you have these side effects or questions. These controlled substances can produce physical dependence and be habit-forming if taken for an extended period of time, which means that the body has gotten used to them and may experience withdrawal symptoms if they are abruptly stopped. Withdrawal symptoms can include runny nose, sweating, goose bumps, diarrhea, abdominal cramping, rapid heartbeat, difficulty sleeping, and nervousness. Please dispose of unused and medications per your retail pharmacy guidance. Allergies Fish (states allergy is to catfish, no allergy to shellfish, C/O: itching, C/O: a swelling, C/O: a swelling~C/O: itching) penicillins (C/O: itching, C/O: a swelling, C/O: a swelling~C/O: itching) Immunizations This Visit No Immunizations Found Education Materials Atrial Fibrillation Atrial fibrillation is a type of heartbeat that is irregular or fast. If you have this condition, your heart beats without any order. This makes it hard for your heart to pump blood in a normal way. Atrial fibrillation may come and go, or it may become a long-lasting problem. If this condition is not treated, it can put you at higher risk for stroke, heart failure, and other heart problems. What are the causes? This condition may be caused by diseases that damage the heart. They include: ??? High blood pressure. ??? Heart failure. ??? Heart valve disease. ??? Heart surgery. Other causes include: ??? Diabetes. ??? Thyroid disease. ??? Being overweight. ??? Kidney disease. Sometimes the cause is not known. What increases the risk? You are more likely to develop this condition if: ??? You are older. ??? You smoke. ??? You exercise often and very hard. ??? You have a family history of this condition. ??? You are a man. ??? You use drugs. ??? You drink a lot of alcohol. ??? You have lung conditions, such as emphysema, pneumonia, or COPD. ??? You have sleep apnea. What are the signs or symptoms? Common symptoms of this condition include: ??? A feeling that your heart is beating very fast. ??? Chest pain or discomfort. ??? Feeling short of breath. ??? Suddenly feeling light-headed or weak. ??? Getting tired easily during activity. ??? Fainting. ??? Sweating. In some cases, there are no symptoms. How is this treated? Treatment for this condition depends on underlying conditions and how you feel when you have atrial fibrillation. They include: ??? Medicines to: ? Prevent blood clots. ? Treat heart rate or heart rhythm problems. ??? Using devices, such as a pacemaker, to correct heart rhythm problems. ??? Doing surgery to remove the part of the heart that sends bad signals. ??? Closing an area where clots can form in the heart (left atrial appendage). In some cases, your doctor will treat other underlying conditions. Follow these instructions at home: Medicines ??? Take qqfl-wde-xvgswqe and prescription medicines only as told by your doctor. ??? Do not take any new medicines without first talking to your doctor. ??? If you are taking blood thinners: ? Talk with your doctor before you take any medicines that have aspirin or NSAIDs, such as ibuprofen, in them. ? Take your medicine exactly as told by your doctor. Take it at the same time each day. ? Avoid activities that could hurt or bruise you. Follow instructions about how to prevent falls. ? Wear a bracelet that says you are taking blood thinners. Or, carry a card that lists what medicines you take. Lifestyle ??? Do not use any products that have nicotine or tobacco in them. These include cigarettes, e-cigarettes, and chewing tobacco. If you need help quitting, ask your doctor. ??? Eat heart-healthy foods. Talk with your doctor about the right eating plan for you. ??? Exercise regularly as told by your doctor. ??? Do not drink alcohol. ??? Lose weight if you are overweight. ??? Do not use drugs, including cannabis. General instructions ??? If you have a condition that causes breathing to stop for a short period of time (apnea), treat it as told by your doctor. ??? Keep a healthy weight. Do not use diet pills unless your doctor says they are safe for you. Diet pills may make heart problems worse. ??? Keep all follow-up visits as told by your doctor. This is important. Contact a doctor if: ??? You notice a change in the speed, rhythm, or strength of your heartbeat. ??? You are taking a blood-thinning medicine and you get more bruising. ??? You get tired more easily when you move or exercise. ??? You have a sudden change in weight. Get help right away if: ??? You have pain in your chest or your belly (abdomen). ??? You have trouble breathing. ??? You have side effects of blood thinners, such as blood in your vomit, poop (stool), or pee (urine), or bleeding that cannot stop. ??? You have any signs of a stroke. BE FAST is an easy way to remember the main warning signs: ? B - Balance. Signs are dizziness, sudden trouble walking, or loss of balance. ? E - Eyes. Signs are trouble seeing or a change in how you see. ? F - Face. Signs are sudden weakness or loss of feeling in the face, or the face or eyelid drooping on one side. ? A - Arms. Signs are weakness or loss of feeling in an arm. This happens suddenly and usually on one side of the body. ? S - Speech. Signs are sudden trouble speaking, slurred speech, or trouble understanding what people say. ? T - Time. Time to call emergency services. Write down what time symptoms started. ??? You have other signs of a stroke, such as: ? A sudden, very bad headache with no known cause. ? Feeling like you may vomit (nausea). ? Vomiting. ? A seizure. These symptoms may be an emergency. Do not wait to see if the symptoms will go away. Get medical help right away. Call your local emergency services (911 in the [place] Do not drive yourself to the hospital. Summary ??? Atrial fibrillation is a type of heartbeat that is irregular or fast. ??? You are at higher risk of this condition if you smoke, are older, have diabetes, or are overweight. ??? Follow your doctor's instructions about medicines, diet, exercise, and follow-up visits. ??? Get help right away if you have signs or symptoms of a stroke. ??? Get help right away if you cannot catch your breath, or you have chest pain or discomfort. This information is not intended to replace advice given to you by your health care provider. Make sure you discuss any questions you have with your health care provider. Document Revised: 10/14/2019 Document Reviewed: 10/14/2019 [employer] Patient Education ?? 2020 [employer] Groin Site Care Refer to this sheet in the next few weeks. These instructions provide you with information on caring for yourself after your procedure. Your caregiver may also give you more specific instructions. Your treatment has been planned according to current medical practices, but problems sometimes occur. Call your caregiver if you have any problems or questions after your procedure. HOME CARE INSTRUCTIONS ??? You may shower 24 hours after the procedure. Remove the bandage (dressing ) and gently wash the site with plain soap and water. Gently pat the site dry. ??? Do not apply powder or lotion to the site. ??? Do not sit in a bathtub, swimming pool, or whirlpool for 5 to 7 days. ??? No bending, squatting, or lifting anything over 10 pounds (4.5 kg) as directed by your caregiver. ??? Inspect the site at least twice daily. ??? Do not drive home if you are discharged the same day of the procedure. Have someone else drive you. ??? You may drive 24 hours after the procedure unless otherwise instructed by your caregiver. What to expect: ??? Any bruising will usually fade within 1 to 2 weeks. ??? Blood that collects in the tissue (hematoma ) may be painful to the touch. It should usually decrease in size and tenderness within 1 to 2 weeks. SEEK IMMEDIATE MEDICAL CARE IF: ??? You have unusual pain at the groin site or down the affected leg. ??? You have redness, warmth, swelling, or pain at the groin site. ??? You have drainage (other than a small amount of blood on the dressing). ??? You have chills. ??? You have a fever or persistent symptoms for more than 72 hours. ??? You have a fever and your symptoms suddenly get worse. ??? Your leg becomes pale, cool, tingly, or numb. ??? You have heavy bleeding from the site. Hold pressure on the site. Document Released: 05/25/2011 Document Revised: 07/14/2012 Document Reviewed: 05/25/2011 [employer]?? Patient Information ??2013 [employer] Cardiac Ablation, Care After This sheet gives you information about how to care for yourself after your procedure. Your health care provider may also give you more specific instructions. If you have problems or questions, contact your health care provider. What can I expect after the procedure? After the procedure, it is common to have: ??? Bruising around your puncture site. ??? Tenderness around your puncture site. ??? Skipped heartbeats. ??? Tiredness (fatigue). Follow these instructions at home: Puncture site care ??? Follow instructions from your health care provider about how to take care of your puncture site. Make sure you: ? Wash your hands with soap and water before you change your bandage (dressing). If soap and water are not available, use hand account manager employee benefits. ? Change your dressing as told by your health care provider. ? Leave stitches (sutures), skin glue, or adhesive strips in place. These skin closures may need to stay in place for up to 2 weeks. If adhesive strip edges start to loosen and curl up, you may trim the loose edges. Do not remove adhesive strips completely unless your health care provider tells you to do that. ??? Check your puncture site every day for signs of infection. Check for: ? Redness, swelling, or pain. ? Fluid or blood. If your puncture site starts to bleed, lie down on your back, apply firm pressure to the area, and contact your health care provider. ? Warmth. ? Pus or a bad smell. Driving ??? Ask your health care provider when it is safe for you to drive again after the procedure. ??? Do not drive or use heavy machinery while taking prescription pain medicine. ??? Do not drive for 24 hours if you were given a medicine to help you relax (sedative) during your procedure. Activity ??? Avoid activities that take a lot of effort for at least 3 days after your procedure. ??? Do not lift anything that is heavier than 10 lb (4.5 kg), or the limit that you are told, until your health care provider says that it is safe. ??? Return to your normal activities as told by your health care provider. Ask your health care provider what activities are safe for you. General instructions ??? Take cxdo-enf-eemzduz and prescription medicines only as told by your health care provider. ??? Do not use any products that contain nicotine or tobacco, such as cigarettes and e-cigarettes. If you need help quitting, ask your health care provider. ??? Do not take baths, swim, or use a hot tub until your health care provider approves. ??? Do not drink alcohol for 24 hours after your procedure. ??? Keep all follow-up visits as told by your health care provider. This is important. Contact a health care provider if: ??? You have redness, mild swelling, or pain around your puncture site. ??? You have fluid or blood coming from your puncture site that stops after applying firm pressure to the area. ??? Your puncture site feels warm to the touch. ??? You have pus or a bad smell coming from your puncture site. ??? You have a fever. ??? You have chest pain or discomfort that spreads to your neck, jaw, or arm. ??? You are sweating a lot. ??? You feel nauseous. ??? You have a fast or irregular heartbeat. ??? You have shortness of breath. ??? You are dizzy or light-headed and feel the need to lie down. ??? You have pain or numbness in the arm or leg closest to your puncture site. Get help right away if: ??? Your puncture site suddenly swells. ??? Your puncture site is bleeding and the bleeding does not stop after applying firm pressure to the area. These symptoms may represent a serious problem that is an emergency. Do not wait to see if the symptoms will go away. Get medical help right away. Call your local emergency services (911 in the [place] Do not drive yourself to the hospital. Summary ??? After the procedure, it is normal to have bruising and tenderness at the puncture site in your groin, neck, or forearm. ??? Check your puncture site every day for signs of infection. ??? Get help right away if your puncture site is bleeding and the bleeding does not stop after applying firm pressure to the area. This is a medical emergency. This information is not intended to replace advice given to you by your health care provider. Make sure you discuss any questions you have with your health care provider. Document Revised: 04/04/2018 Document Reviewed: 08/01/2017 [employer] Patient Education ?? 2020 [employer] Cardiac Ablation Cardiac ablation is a procedure to stop some heart tissue from causing problems. The heart has many electrical connections. Sometimes these connections make the heart beat very fast or irregularly. Removing some problem areas can improve the heart rhythm or make it normal. What happens before the procedure? Follow instructions from your doctor about what you cannot eat or drink. ??? Ask your doctor about: ? Changing or stopping your normal medicines. This is important if you take diabetes medicines or blood thinners. ? Taking medicines such as aspirin and ibuprofen. These medicines can thin your blood. Do not take these medicines before your procedure if your doctor tells you not to. ??? Plan to have someone take you home. ??? If you will be going home right after the procedure, plan to have someone with you for 24 hours. What happens during the procedure? To lower your risk of infection: ? Your health care team will wash or sanitize their hands. ? Your skin will be washed with soap. ? Hair may be removed from your neck or groin. ??? An IV tube will be put into one of your veins. ??? You will be given a medicine to help you relax (sedative). ??? Skin on your neck or groin will be numbed. ??? A cut (incision) will be made in your neck or groin. ??? A needle will be put through your cut and into a vein in your neck or groin. ??? A tube (catheter) will be put into the needle. The tube will be moved to your heart. X-rays (fluoroscopy) will be used to help guide the tube. ??? Small devices (electrodes) on the tip of the tube will send out electrical currents. ??? Dye may be put through the tube. This helps your surgeon see your heart. ??? Electrical energy will be used to scar (ablate) some heart tissue. Your surgeon may use: ? Heat (radiofrequency energy). ? Laser energy. ? Extreme cold (cryoablation). ??? The tube will be taken out. ??? Pressure will be held on your cut. This helps stop bleeding. ??? A bandage (dressing) will be put on your cut. The procedure may vary. What happens after the procedure? You will be monitored until your medicines have worn off. ??? Your cut will be watched for bleeding. You will need to lie still for a few hours. ??? Do not drive for 24 hours or as long as your doctor tells you. Summary ??? Cardiac ablation is a procedure to stop some heart tissue from causing problems. ??? Electrical energy will be used to scar (ablate) some heart tissue. This information is not intended to replace advice given to you by your health care provider. Make sure you discuss any questions you have with your health care provider. Document Revised: 04/04/2018 Document Reviewed: 03/11/2017 [employer] Patient Education ?? 2020 [employer]. Atrial Fibrillation Atrial fibrillation is a type of heartbeat that is irregular or fast. If you have this condition, your heart beats without any order. This makes it hard for your heart to pump blood in a normal way. Atrial fibrillation may come and go, or it may become a long-lasting problem. If this condition is not treated, it can put you at higher risk for stroke, heart failure, and other heart problems. What are the causes? This condition may be caused by diseases that damage the heart. They include: ??? High blood pressure. ??? Heart failure. ??? Heart valve disease. ??? Heart surgery. Other causes include: ??? Diabetes. ??? Thyroid disease. ??? Being overweight. ??? Kidney disease. Sometimes the cause is not known. What increases the risk? You are more likely to develop this condition if: ??? You are older. ??? You smoke. ??? You exercise often and very hard. ??? You have a family history of this condition. ??? You are a man. ??? You use drugs. ??? You drink a lot of alcohol. ??? You have lung conditions, such as emphysema, pneumonia, or COPD. ??? You have sleep apnea. What are the signs or symptoms? Common symptoms of this condition include: ??? A feeling that your heart is beating very fast. ??? Chest pain or discomfort. ??? Feeling short of breath. ??? Suddenly feeling light-headed or weak. ??? Getting tired easily during activity. ??? Fainting. ??? Sweating. In some cases, there are no symptoms. How is this treated? Treatment for this condition depends on underlying conditions and how you feel when you have atrial fibrillation. They include: ??? Medicines to: ? Prevent blood clots. ? Treat heart rate or heart rhythm problems. ??? Using devices, such as a pacemaker, to correct heart rhythm problems. ??? Doing surgery to remove the part of the heart that sends bad signals. ??? Closing an area where clots can form in the heart (left atrial appendage). In some cases, your doctor will treat other underlying conditions. Follow these instructions at home: Medicines ??? Take jcti-bdz-pkomtpc and prescription medicines only as told by your doctor. ??? Do not take any new medicines without first talking to your doctor. ??? If you are taking blood thinners: ? Talk with your doctor before you take any medicines that have aspirin or NSAIDs, such as ibuprofen, in them. ? Take your medicine exactly as told by your doctor. Take it at the same time each day. ? Avoid activities that could hurt or bruise you. Follow instructions about how to prevent falls. ? Wear a bracelet that says you are taking blood thinners. Or, carry a card that lists what medicines you take. Lifestyle ??? Do not use any products that have nicotine or tobacco in them. These include cigarettes, e-cigarettes, and chewing tobacco. If you need help quitting, ask your doctor. ??? Eat heart-healthy foods. Talk with your doctor about the right eating plan for you. ??? Exercise regularly as told by your doctor. ??? Do not drink alcohol. ??? Lose weight if you are overweight. ??? Do not use drugs, including cannabis. General instructions ??? If you have a condition that causes breathing to stop for a short period of time (apnea), treat it as told by your doctor. ??? Keep a healthy weight. Do not use diet pills unless your doctor says they are safe for you. Diet pills may make heart problems worse. ??? Keep all follow-up visits as told by your doctor. This is important. Contact a doctor if: ??? You notice a change in the speed, rhythm, or strength of your heartbeat. ??? You are taking a blood-thinning medicine and you get more bruising. ??? You get tired more easily when you move or exercise. ??? You have a sudden change in weight. Get help right away if: ??? You have pain in your chest or your belly (abdomen). ??? You have trouble breathing. ??? You have side effects of blood thinners, such as blood in your vomit, poop (stool), or pee (urine), or bleeding that cannot stop. ??? You have any signs of a stroke. BE FAST is an easy way to remember the main warning signs: ? B - Balance. Signs are dizziness, sudden trouble walking, or loss of balance. ? E - Eyes. Signs are trouble seeing or a change in how you see. ? F - Face. Signs are sudden weakness or loss of feeling in the face, or the face or eyelid drooping on one side. ? A - Arms. Signs are weakness or loss of feeling in an arm. This happens suddenly and usually on one side of the body. ? S - Speech. Signs are sudden trouble speaking, slurred speech, or trouble understanding what people say. ? T - Time. Time to call emergency services. Write down what time symptoms started. ??? You have other signs of a stroke, such as: ? A sudden, very bad headache with no known cause. ? Feeling like you may vomit (nausea). ? Vomiting. ? A seizure. These symptoms may be an emergency. Do not wait to see if the symptoms will go away. Get medical help right away. Call your local emergency services (911 in the [place] Do not drive yourself to the hospital. Summary ??? Atrial fibrillation is a type of heartbeat that is irregular or fast. ??? You are at higher risk of this condition if you smoke, are older, have diabetes, or are overweight. ??? Follow your doctor's instructions about medicines, diet, exercise, and follow-up visits. ??? Get help right away if you have signs or symptoms of a stroke. ??? Get help right away if you cannot catch your breath, or you have chest pain or discomfort. This information is not intended to replace advice given to you by your health care provider. Make sure you discuss any questions you have with your health care provider. Document Revised: 10/14/2019 Document Reviewed: 10/14/2019 [employer] Patient Education ?? 2020 [employer] Aspirin and Your Heart Aspirin is a medicine that prevents the cells in the blood that are used for clotting, called platelets, from sticking together. Aspirin can be used to help reduce the risk of blood clots, heart attacks, and other heart-related problems. Can I take aspirin? Your health care provider will help you determine whether it is safe and beneficial for you to take aspirin daily. Taking aspirin daily may be helpful if you: ??? Have had a heart attack or chest pain. ??? Are at risk for a heart attack. ??? Have undergone open-heart surgery, such as coronary artery bypass surgery (CABG). ??? Have had coronary angioplasty or a stent. ??? Have had certain types of stroke or transient ischemic attack (TIA). ??? Have peripheral artery disease (PAD). ??? Have chronic heart rhythm problems such as atrial fibrillation and cannot take an anticoagulant. ??? Have valve disease or have had surgery on a valve. What are the risks? Daily use of aspirin can cause side effects. Some of these include: ??? Bleeding. Bleeding problems can be minor or serious. An example of a minor problem is a cut that does not stop bleeding. An example of a more serious problem is stomach bleeding or, rarely, bleeding into the brain. Your risk of bleeding is increased if you are also taking non-steroidal anti-inflammatory drugs (NSAIDs). ??? Increased bruising. ??? Upset stomach. ??? An allergic reaction. People who have nasal polyps have an increased risk of developing an aspirin allergy. General guidelines ??? Take aspirin only as told by your health care provider. Make sure that you understand how much you should take and what form you should take. The two forms of aspirin are: ? Gyx-qayoebb-hlmeop.This type of aspirin does not have a coating and is absorbed quickly. This type of aspirin also comes in a chewable form. ? Enteric-coated. This type of aspirin has a coating that releases the medicine very slowly. Enteric-coated aspirin might cause less stomach upset than wwm-mxwuqcs-rrehjm aspirin. This type of aspirin should not be chewed or crushed. ??? Limit alcohol intake to no more than 1 drink a day for non women and 2 drinks a day for men. Drinking alcohol increases your risk of bleeding. One drink equals 12 oz of beer, 5 oz of wine, or 1?? oz of hard liquor. Contact a health care provider if you: ??? Have unusual bleeding or bruising. ??? Have stomach pain or nausea. ??? Have ringing in your ears. ??? Have an allergic reaction that causes: ? Hives. ? Itchy skin. ? Swelling of the lips, tongue, or face. Get help right away if you: ??? Notice that your bowel movements are bloody, dark red, or black in color. ??? Vomit or cough up blood. ??? Have blood in your urine. ??? Cough, have noisy breathing (wheeze), or feel short of breath. ??? Have chest pain, especially if the pain spreads to the arms, back, neck, or jaw. ??? Have a severe headache, or a headache with confusion, or dizziness. These symptoms may represent a serious problem that is an emergency. Do not wait to see if the symptoms will go away. Get medical help right away. Call your local emergency services (911 in the [place] Do not drive yourself to the hospital. Summary ??? Aspirin can be used to help reduce the risk of blood clots, heart attacks, and other heart-related problems. ??? Daily use of aspirin can increase your risk of side effects. Your health care provider will help you determine whether it is safe and beneficial for you to take aspirin daily. ??? Take aspirin only as told by your health care provider. Make sure that you understand how much you can take and what form you can take. This information is not intended to replace advice given to you by your health care provider. Make sure you discuss any questions you have with your health care provider. Document Revised: 02/20/2018 Document Reviewed: 02/20/2018 [employer] Patient Education ?? 2020 [employer] Cardiac Ablation, Care After This sheet gives you information about how to care for yourself after your procedure. Your health care provider may also give you more specific instructions. If you have problems or questions, contact your health care provider. What can I expect after the procedure? After the procedure, it is common to have: ??? Bruising around your puncture site. ??? Tenderness around your puncture site. ??? Skipped heartbeats. ??? Tiredness (fatigue). Follow these instructions at home: Puncture site care ??? Follow instructions from your health care provider about how to take care of your puncture site. Make sure you: ? Wash your hands with soap and water before you change your bandage (dressing). If soap and water are not available, use hand account manager employee benefits. ? Change your dressing as told by your health care provider. ? Leave stitches (sutures), skin glue, or adhesive strips in place. These skin closures may need to stay in place for up to 2 weeks. If adhesive strip edges start to loosen and curl up, you may trim the loose edges. Do not remove adhesive strips completely unless your health care provider tells you to do that. ??? Check your puncture site every day for signs of infection. Check for: ? Redness, swelling, or pain. ? Fluid or blood. If your puncture site starts to bleed, lie down on your back, apply firm pressure to the area, and contact your health care provider. ? Warmth. ? Pus or a bad smell. Driving ??? Ask your health care provider when it is safe for you to drive again after the procedure. ??? Do not drive or use heavy machinery while taking prescription pain medicine. ??? Do not drive for 24 hours if you were given a medicine to help you relax (sedative) during your procedure. Activity ??? Avoid activities that take a lot of effort for at least 3 days after your procedure. ??? Do not lift anything that is heavier than 10 lb (4.5 kg), or the limit that you are told, until your health care provider says that it is safe. ??? Return to your normal activities as told by your health care provider. Ask your health care provider what activities are safe for you. General instructions ??? Take hsus-jse-xtcgksz and prescription medicines only as told by your health care provider. ??? Do not use any products that contain nicotine or tobacco, such as cigarettes and e-cigarettes. If you need help quitting, ask your health care provider. ??? Do not take baths, swim, or use a hot tub until your health care provider approves. ??? Do not drink alcohol for 24 hours after your procedure. ??? Keep all follow-up visits as told by your health care provider. This is important. Contact a health care provider if: ??? You have redness, mild swelling, or pain around your puncture site. ??? You have fluid or blood coming from your puncture site that stops after applying firm pressure to the area. ??? Your puncture site feels warm to the touch. ??? You have pus or a bad smell coming from your puncture site. ??? You have a fever. ??? You have chest pain or discomfort that spreads to your neck, jaw, or arm. ??? You are sweating a lot. ??? You feel nauseous. ??? You have a fast or irregular heartbeat. ??? You have shortness of breath. ??? You are dizzy or light-headed and feel the need to lie down. ??? You have pain or numbness in the arm or leg closest to your puncture site. Get help right away if: ??? Your puncture site suddenly swells. ??? Your puncture site is bleeding and the bleeding does not stop after applying firm pressure to the area. These symptoms may represent a serious problem that is an emergency. Do not wait to see if the symptoms will go away. Get medical help right away. Call your local emergency services (911 in the [place] Do not drive yourself to the hospital. Summary ??? After the procedure, it is normal to have bruising and tenderness at the puncture site in your groin, neck, or forearm. ??? Check your puncture site every day for signs of infection. ??? Get help right away if your puncture site is bleeding and the bleeding does not stop after applying firm pressure to the area. This is a medical emergency. This information is not intended to replace advice given to you by your health care provider. Make sure you discuss any questions you have with your health care provider. Document Revised: 04/04/2018 Document Reviewed: 08/01/2017 [employer] Patient Education ?? 2020 [employer] Heart-Healthy Eating Plan Heart-healthy meal planning includes: ??? Eating less unhealthy fats. ??? Eating more healthy fats. ??? Making other changes in your diet. Talk with your doctor or a diet specialist (dietitian) to create an eating plan that is right for you. What is my plan? Your doctor may recommend an eating plan that includes: ??? Total fat: % or less of total calories a day. ??? Saturated fat: % or less of total calories a day. ??? Cholesterol: less than mg a day. What are tips for following this plan? Cooking Avoid frying your food. Try to bake, boil, grill, or broil it instead. You can also reduce fat by: ??? Removing the skin from poultry. ??? Removing all visible fats from meats. ??? Steaming vegetables in water or broth. Meal planning ??? At meals, divide your plate into four equal parts: ? Fill one-half of your plate with vegetables and green salads. ? Fill one-fourth of your plate with whole grains. ? Fill one-fourth of your plate with lean protein foods. ??? Eat 4???5 servings of vegetables per day. A serving of vegetables is: ? 1 cup of raw or cooked vegetables. ? 2 cups of raw leafy greens. ??? Eat 4???5 servings of fruit per day. A serving of fruit is: ? 1 medium whole fruit. ? ?? cup of dried fruit. ? ?? cup of fresh, frozen, or canned fruit. ? ?? cup of 100% fruit juice. ??? Eat more foods that have soluble fiber. These are apples, broccoli, carrots, beans, peas, and barley. Try to get 20???30 g of fiber per day. ??? Eat 4???5 servings of nuts, legumes, and seeds per week: ? 1 serving of dried beans or legumes equals ?? cup after being cooked. ? 1 serving of nuts is ?? cup. ? 1 serving of seeds equals 1 tablespoon. General information ??? Eat more home-cooked food. Eat less restaurant, buffet, and fast food. ??? Limit or avoid alcohol. ??? Limit foods that are high in starch and sugar. ??? Avoid fried foods. ??? Lose weight if you are overweight. ??? Keep track of how much salt (sodium) you eat. This is important if you have high blood pressure. Ask your doctor to tell you more about this. ??? Try to add vegetarian meals each week. Fats ??? Choose healthy fats. These include olive oil and canola oil, flaxseeds, walnuts, almonds, and seeds. ??? Eat more omega-3 fats. These include salmon, mackerel, sardines, tuna, flaxseed oil, and ground flaxseeds. Try to eat fish at least 2 times each week. ??? Check food labels. Avoid foods with trans fats or high amounts of saturated fat. ??? Limit saturated fats. ? These are often found in animal products, such as meats, butter, and cream. ? These are also found in plant foods, such as palm oil, palm kernel oil, and coconut oil. ??? Avoid foods with partially hydrogenated oils in them. These have trans fats. Examples are stick margarine, some tub margarines, cookies, crackers, and other baked goods. What foods can I eat? Fruits All fresh, canned (in natural juice), or frozen fruits. Vegetables Fresh or frozen vegetables (raw, steamed, roasted, or grilled). Green salads. Grains Most grains. Choose whole wheat and whole grains most of the time. Rice and pasta, including brown rice and pastas made with whole wheat. Meats and other proteins Lean, well-trimmed beef, veal, pork, and fernandes. Chicken and turkey without skin. All fish and shellfish. Wild duck, rabbit, pheasant, and venison. Egg whites or low-cholesterol egg substitutes. Dried beans, peas, lentils, and tofu. Seeds and most nuts. Dairy Low-fat or nonfat cheeses, including ricotta and mozzarella. Skim or 1% milk that is liquid, powdered, or evaporated. Buttermilk that is made with low-fat milk. Nonfat or low-fat yogurt. Fats and oils Non-hydrogenated (trans-free) margarines. Vegetable oils, including soybean, sesame, sunflower, olive, peanut, safflower, corn, canola, and cottonseed. Salad dressings or mayonnaise made with a vegetable oil. Beverages Mineral water. Coffee and tea. Diet carbonated beverages. Sweets and desserts Sherbet, gelatin, and fruit ice. Small amounts of dark chocolate. Limit all sweets and desserts. Seasonings and condiments All seasonings and condiments. The items listed above may not be a complete list of foods and drinks you can eat. Contact a dietitian for more options. What foods should I avoid? Fruits Canned fruit in heavy syrup. Fruit in cream or butter sauce. Fried fruit. Limit coconut. Vegetables Vegetables cooked in cheese, cream, or butter sauce. Fried vegetables. Grains Breads that are made with saturated or trans fats, oils, or whole milk. Croissants. Sweet rolls. Donuts. High-fat crackers, such as cheese crackers. Meats and other proteins Fatty meats, such as hot dogs, ribs, sausage, tenorio, rib-eye roast or steak. High-fat deli meats, such as salami and bologna. Caviar. Domestic duck and goose. Organ meats, such as liver. Dairy Cream, sour cream, cream cheese, and creamed cottage cheese. Whole-milk cheeses. Whole or 2% milk that is liquid, evaporated, or condensed. Whole buttermilk. Cream sauce or high-fat cheese sauce. Yogurt that is made from whole milk. Fats and oils Meat fat, or shortening. [place] butter, hydrogenated oils, palm oil, coconut oil, palm kernel oil. Solid fats and shortenings, including tenorio fat, salt pork, lard, and butter. Nondairy cream substitutes. Salad dressings with cheese or sour cream. Beverages Regular sodas and juice drinks with added sugar. Sweets and desserts Frosting. Pudding. Cookies. Cakes. Pies. Milk chocolate or white chocolate. Buttered syrups. Full-fat ice cream or ice cream drinks. The items listed above may not be a complete list of foods and drinks to avoid. Contact a dietitian for more information. Summary ??? Heart-healthy meal planning includes eating less unhealthy fats, eating more healthy fats, and making other changes in your diet. ??? Eat a balanced diet. This includes fruits and vegetables, low-fat or nonfat dairy, lean protein, nuts and legumes, whole grains, and heart-healthy oils and fats. This information is not intended to replace advice given to you by your health care provider. Make sure you discuss any questions you have with your health care provider. Document Revised: 06/26/2018 Document Reviewed: 05/30/2018 [employer] Patient Education ?? 2020 [employer]. pantoprazole (oral/injection) (villan[place] TOE pra zole) Protonix What is the most important information I should know about pantoprazole? Pantoprazole can cause kidney problems. Tell your doctor if you are urinating less than usual, or if you have blood in your urine. Diarrhea may be a sign of a new infection. Call your doctor if you have diarrhea that is watery or has blood in it. Pantoprazole may cause new or worsening symptoms of lupus. Tell your doctor if you have joint pain and a skin rash on your cheeks or arms that worsens in sunlight. You may be more likely to have a broken bone while taking this medicine director software quality assurance or more than once per day. What is pantoprazole? Pantoprazole is used to treat erosive esophagitis (damage to the esophagus from stomach acid caused by gastroesophageal reflux disease, or GERD) in adults and children who are at least 5 years old. Pantoprazole is usually given for up to 8 weeks at a time while your esophagus heals. Pantoprazole is also used to treat Kristie-Rivera syndrome and other conditions involving excess stomach acid. Pantoprazole is not for immediate relief of heartburn. Pantoprazole may also be used for purposes not listed in this medication guide. What should I discuss with my healthcare provider before using pantoprazole? Heartburn can mimic early symptoms of a heart attack. Get emergency medical help if you have chest pain that spreads to your jaw or shoulder and you feel anxious or light-headed. You should not use this medicine if: ?? you also take medicine that contains rilpivirine (Edurant, Complera, Juluca, Odefsey); ?? if you had breathing problems, kidney problems, or a severe allergic reaction after taking pantoprazole in the past; ?? you are allergic to pantoprazole or similar medicines (lansoprazole, omeprazole, Nexium, Prevacid, Prilosec, and others). Tell your doctor if you have ever had: ?? low levels of magnesium in your blood; ?? lupus; or ?? osteoporosis or low bone mineral density. You may be more likely to have a broken bone in your hip, wrist, or spine while taking a proton pump inhibitor long-term or more than once per day. Talk with your doctor about ways to keep your bones healthy. Tell your doctor if you are or . Pantoprazole is not approved for use by anyone younger than 5 years old. How should I use pantoprazole? Follow all directions on your prescription label and read all medication guides or instruction sheets. Use the medicine exactly as directed. Use the lowest dose for the shortest amount of time needed to treat your condition. Pantoprazole is taken by mouth (oral) or given as an infusion into a vein (injection). A healthcare provider may teach you how to properly use pantoprazole injection by yourself. Pantoprazole tablets are taken by mouth, with or without food. Pantoprazole oral granules should be taken 30 minutes before a meal. Do not crush, chew, or break the tablet. Swallow it whole. The oral granules should be mixed with applesauce or apple juice and given either by mouth or through a nasogastric (NG) tube. Read and carefully follow any Instructions for Use provided with your medicine. Ask your doctor or pharmacist if you do not understand these instructions. Use this medicine for the full prescribed length of time, even if your symptoms quickly improve. Call your doctor if your symptoms do not improve or if they get worse while you are using this medicine. This medicine can affect the results of certain medical tests. Tell any doctor who treats you that you are using pantoprazole. Pantoprazole may also affect a drug-screening urine test and you may have false results. Tell the laboratory staff that you use this medicine. Store this medicine at room temperature away from moisture, heat, and light. What happens if I miss a dose? Use the medicine as soon as you can, but skip the missed dose if it is almost time for your next dose. Do not use two doses at one time. What happens if I overdose? Seek emergency medical attention or call the Poison Help line at . What should I avoid while using pantoprazole? This medicine can cause diarrhea, which may be a sign of a new infection. If you have diarrhea that is watery or bloody, call your doctor. Do not use anti-diarrhea medicine unless your doctor tells you to. What are the possible side effects of pantoprazole? Get emergency medical help if you have signs of an allergic reaction: hives; difficulty breathing; swelling of your face, lips, tongue, or throat. Call your doctor at once if you have: ?? severe stomach pain, diarrhea that is watery or bloody; ?? sudden pain or trouble moving your hip, wrist, or back; ?? bruising or swelling where intravenous pantoprazole was injected; ?? kidney problems-- fever, rash, nausea, loss of appetite, joint pain, urinating less than usual, blood in your urine, weight gain; ?? low magnesium--dizziness, fast or irregular heart rate, tremors (shaking) or jerking muscle movements, feeling jittery, muscle cramps, muscle spasms in your hands and feet, cough or choking feeling; or ?? new or worsening symptoms of lupus--joint pain, and a skin rash on your cheeks or arms that worsens in sunlight. Taking pantoprazole long-term may cause you to develop stomach growths called fundic gland polyps. Talk with your doctor about this risk. If you use pantoprazole for longer than 3 years, you could develop a vitamin B-12 deficiency. Talk to your doctor about how to manage this condition if you develop it. Common side effects may include: ?? headache, dizziness; ?? stomach pain, gas, nausea, vomiting, diarrhea; ?? joint pain; or ?? fever, rash, or cold symptoms (most common in children). This is not a complete list of side effects and others may occur. Call your doctor for medical advice about side effects. You may report side effects to FDA at 8-312-WGR-3431. What other drugs will affect pantoprazole? Tell your doctor about all your other medicines, especially: ?? digoxin; ?? methotrexate; or ?? a diuretic or 'water pill.' This list is not complete. Other drugs may affect pantoprazole, including prescription and iuqf-goj-syobipw medicines, vitamins, and herbal products. Not all possible drug interactions are listed here. Where can I get more information? Your pharmacist can provide more information about pantoprazole. Remember, keep this and all other medicines out of the reach of children, never share your medicines with others, and use this medication only for the indication prescribed. Every effort has been made to ensure that the information provided by [employer]') is accurate, up-to-date, and complete, but no guarantee is made to that effect. Drug information contained herein may be time sensitive. [employer] information has been compiled for use by healthcare practitioners and consumers in the [place] and therefore [employer] does not warrant that uses outside of the [place] are appropriate, unless specifically indicated otherwise. [employer] drug information does not endorse drugs, diagnose patients or recommend therapy. [employer] drug information is an informational resource designed to assist licensed healthcare practitioners in caring for their patients and/or to serve consumers viewing this service as a supplement to, and not a substitute for, the expertise, skill, knowledge and judgment of healthcare practitioners. The absence of a warning for a given drug or drug combination in no way should be construed to indicate that the drug or drug combination is safe, effective or appropriate for any given patient. [employer] does not assume any responsibility for any aspect of healthcare administered with the aid of information [employer] provides. The information contained herein is not intended to cover all possible uses, directions, precautions, warnings, drug interactions, allergic reactions, or adverse effects. If you have questions about the drugs you are taking, check with your doctor, nurse or pharmacist. Copyright 2045-5977 [employer]. Version: 21.. Revision Date: 05/09/2020. Emergency Awareness and Preventative Care STROKE is an EMERGENCY Every Minute Counts Act FAST and Check for these signs: FACE Does the face look uneven? ARM Does one arm drift down? SPEECH Does their speech sound strange? TIME Call at any sign of stroke Stroke Risk Factors Atrial Fibrillation (irregular heartbeat) Diabetes Family history of stroke Heart Disease Heavy alcohol use High Blood Pressure High Cholesterol Physical inactivity and obesity Smoking Cigarette Smoking The facts are clear, cigarette smoking will shorten your life. Smoking can cause many illnesses along the way. As a healthcare provider, we recommend that you stop smoking. Assistance with quitting is available by contacting 6-517-KELNNOW. This is a free resource providing counseling, support, and referral. Or you may contact your personal physician. National Suicide Prevention Lifeline: The National Suicide Prevention Lifeline is a national network of local crisis centers that provides free and confidential emotional support to people in suicidal crisis or emotional distress 24 hours a day, 7 days a week. Don't Wait! Stop a Heart Attack Before it Starts What is a heart attack? A heart attack is damage or to a part of the heart from severely decreased or lack of blood flow to the heart. Over time, arteries can become narrow from the buildup of fat and cholesterol, which is called plaque. The plaque can rupture causing a blood clot to form. When the blood clot forms, the artery can become severely narrowed or completely blocked, causing a heart attack. Heart attack is the leading cause of in the [place]. 85% of muscle damage occurs within the first 2 hours. Delay in the recognition of heart attack symptoms increases the chances of . Know the early symptoms of a heart attack: Nausea Feeling of fullness in chest Jaw Pain Pain that travels down one or both arms Fatigue/being tired Anxiety Back Pain Chest pressure, squeezing, or discomfort Shortness of breath Sweating, or a cold sweat Feeling of impending doom There are unusual signs of a heart attack, too! Women, the elderly, and diabetics may present with atypical symptoms: Fainting/dizziness Weakness Confusion Risk Factors for a Heart Attack Some heart disease risk factors, such as age and family history, cannot be changed. Others, like smoking and lack of exercise, can be changed. Smoking High Cholesterol High Blood Pressure Family History Obesity Age Gender (Males are at higher risk) Lack of Exercise Diabetes Diet Stress Excessive Alcohol Intake If you or someone you know is experiencing the signs and symptoms of a heart attack, DON???T DELAY. Call immediately and seek help. If someone collapses, perform CPR! Do not attempt to drive if you are having symptoms of heart attack. Hands-Only CPR Why Hands-Only CPR? Hands-Only CPR has been shown to be as effective as conventional CPR for cardiac arrests that occur outside of a hospital. Survival depends on immediately receiving CPR from someone nearby. How do you perform Hands-Only CPR? There are two easy steps: Call 9-1-1 if you see a teen or adult collapse Push hard and fast in the center of the chest at a beat of 100 beats per minute. Save a life! 4 WAYS TO GET AHEAD OF SEPSIS SEPSIS is a MEDICAL EMERGENCY. Time matters! Infections put you and your family at risk for a life-threatening condition called sepsis. Sepsis is the body's extreme response to an infection. It is life-threatening, and without timely treatment, sepsis can rapidly lead to tissue damage, organ failure, and . Sepsis happens when an infection you already have-in your skin, lungs, urinary tract or somewhere else-triggers a chain reaction throughout your body. 1 PREVENT INFECTIONS Take good care of chronic conditions. Talk to your doctor about getting the recommended vaccines. 2 PRACTICE GOOD HYGIENE Wash your hands frequently. Keep cuts or open sores clean and covered until they are healed. 3 KNOW THE SYMPTOMS Confusion or disorientation Shortness of breath High heart rate Fever, shivering, or feeling very cold Extreme pain or discomfort Clammy or sweaty skin 4 ACT FAST Get medical care IMMEDIATELY if you suspect sepsis or if you have an infection that is not getting better or is getting worse. To learn more about sepsis and how to prevent infections, visit www.cdc.gov/sepsis. Test Results Laboratory or Other Results This Visit (last charted value for your 11/30/2020 visit) Hematology 12/01/2020 5:32 AM WBC: 7.1 K/uL -- Normal range between ( 3.6 and 9.5 ) RBC: 4.31 Million/uL -- Normal range between ( 4.20 and 5.70 ) Hct: 39.0 % -- Normal range between ( 40.1 and 51.0 ) Hgb: 12.8 g/dL -- Normal range between ( 13.5 and 17.3 ) Platelet Count: 153 K/uL -- Normal range between ( 163 and 369 ) MCH: 29.7 pg -- Normal range between ( 25.6 and 32.2 ) MCHC: 32.8 Gram/dL -- Normal range between ( 32.2 and 36.5 ) MCV: 90.5 fL -- Normal range between ( 79.0 and 94.8 ) Slide Review: No Eos %: 0.1 % -- Normal range between ( 0.0 and 7.0 ) Grady #: 0.65 K/uL -- Normal range between ( 0.16 and 1.00 ) Eos #: 0.01 x10(3)/uL -- Normal range between ( 0.00 and 0.80 ) Grady %: 9.2 % -- Normal range between ( 3.0 and 9.0 ) Baso %: 0.3 % -- Normal range between ( 0.0 and 1.5 ) Baso #: 0.02 x10(3)/uL -- Normal range between ( 0.00 and 0.20 ) RDW: 12.6 % -- Normal range between ( 11.7 and 14.9 ) Neut %: 70.0 % -- Normal range between ( 34.0 and 71.0 ) Neut #: 4.95 K/uL -- Normal range between ( 1.56 and 6.13 ) Lymph %: 20.1 % -- Normal range between ( 19.3 and 53.1 ) Lymph #: 1.42 x10(3)/uL -- Normal range between ( 1.00 and 3.90 ) MPV: 9.7 fL -- Normal range between ( 9.4 and 12.4 ) IG#: 0.02 x10(3)/uL -- Normal range between ( 0.00 and 0.05 ) IG%: 0.30 % -- Normal range between ( 0.00 and 0.60 ) General Chemistry 12/01/2020 5:32 AM Creatinine Level: 0.80 mg/dL -- Normal range between ( 0.70 and 1.30 ) Sodium Level: 140 mmol/L -- Normal range between ( 136 and 146 ) Potassium Level: 3.8 mmol/L -- Normal range between ( 3.5 and 5.1 ) Chloride Level: 108 mmol/L -- Normal range between ( 102 and 112 ) Carbon Dioxide Level: 28 mmol/L -- Normal range between ( 21 and 32 ) Anion Gap: 8 -- Normal range between ( 9 and 20 ) Bun/Creatinine: 18.8 -- Normal range between ( 8.0 and 20.0 ) Calcium Level: 8.1 mg/dL -- Normal range between ( 8.4 and 10.1 ) eGFR : >60 mL/min/1.73m2 eGFR NonAfrican: >60 mL/min/1.73m2 Glucose Level: 106 mg/dL -- Normal range between ( 74 and 106 ) Magnesium Level: 2.3 mg/dL -- Normal range between ( 1.5 and 2.4 ) Blood Urea Nitrogen: 15 mg/dL -- Normal range between ( 7 and 22 ) Coagulation 11/30/2020 11:36 AM ACT POC: 345 Second(s) -- Normal range between ( 74 and 137 ) Patient Name:NELLY CORTEZ I have received and understand this information and was given the opportunity to ask questions. Patient/Telephone Interviewer Name: Patient/Telephone Interviewer Signature: Relationship to Patient: Clinician/Hospital Telephone Interviewer Signature: Date: Electronically signed by Meng [facility] Conversion Highway Maintenance Supervisor Cerner at 08/26/2022 1:45 PM CDT documented in this encounter Plan of Treatment Upcoming Encounters Date Type Department Care Team (Late st Contact Info) Description 01/19/2025 10:45 AM EDT Office Visit [facility] - [address] [place] [address] Octavio Larsen MD [address] [place] [address] 04/20/2025 10:45 AM EST Office Visit [facility] Electrophysiology [address] [place] [address] Nelda Mesa MD [address] [facility] [address] [place] [address] documented as of this encounter Visit Diagnoses Not on filedocumented in this encounter Care Teams Liberal Arts Dean Relationship Specialty Start Date End Date Balaji Rasmussen MD [address] [place] [address] PCP - General Family Medicine 05/10/22 documented as of this encounter
--- OUTSIDE RECORDS SUMMARY | 2025-01-06 07:03 | XMS_ITS | Encounter Summary ---
Author Organization [employer] ([place], [place], [place], [place]) Address [address] [place] [address] Care Team Providers Care Supervisor Wheel Shop Name Role Phone Balaji Rasmussen MD Primary Care Provider [phone] Encounter Details Date Type Department Care Team (Late st Contact Info) Description 12/01/2020 Transcribed Document [facility] [place] [facility] [place] [address] ProviderMahi MD [address] [place], [place] [id number] Social History Tobacco Use Types Packs/Day Years Used Date Smoking Tobacco: Never Assessed Sex and Gender Information Value Date Recorded Sex Assigned at Not on file Legal Sex Male 5:42 PM CDT Gender Identity Not on file Sexual Orientation Not on file documented as of this encounter Miscellaneous Notes * Cerner Conversion Note - Mahi ProviderMD - 12/01/2020 10:51 AM CDT Patient Education Materials Follows: Groin Site Care Refer to this sheet [...] questions after your procedure. HOME CARE INSTRUCTIONS ? You may shower 24 hours after the procedure. Remove the bandage (dressing ) and gently wash the site with plain soap and water. Gently pat the site dry. ? Do not apply powder or lotion to the site. ? Do not sit in a bathtub, swimming pool, or whirlpool for 5 to 7 days. ? No bending, squatting, or lifting anything over 10 pounds (4.5 kg) as directed by your caregiver. ? Inspect the site at least twice daily. ? Do not drive home if you are discharged the same day of the procedure. Have someone else drive you. ? You may drive 24 hours after the procedure unless otherwise instructed by your caregiver. What to expect: ? Any bruising will usually fade within 1 to 2 weeks. ? Blood that collects in the tissue (hematoma ) may be painful to the touch. It should usually decrease in size and tenderness within 1 to 2 weeks. SEEK IMMEDIATE MEDICAL CARE IF: ? You have unusual pain at the groin site or down the affected leg. ? You have redness, warmth, swelling, or pain at the groin site. ? You have drainage (other than a small amount of blood on the dressing). ? You have chills. ? You have a fever or persistent symptoms for more than 72 hours. ? You have a fever and your symptoms suddenly get worse. ? Your leg becomes pale, cool, tingly, or numb. ? You have heavy bleeding from the site. Hold pressure on the site. Document Released: 05/25/2011 Document Revised: 07/14/2012 Document Reviewed: 05/25/2011 ExitCare? Patient Information ?2014 [employer]. Atrial Fibrillation Atrial fibrillation is a type [...] these instructions at home: Medicines ??? Take bnmm-cbt-wzasysu and prescription medicines only as told by [...] provider. Document Revised: 10/14/2019 Document Reviewed: 10/14/2019 Security Scorecard Patient Education ? 2019 [employer] Cardiac Ablation, Care After This sheet [...] and water are not available, use hand racing secretary. ? Change your dressing as told by [...] safe for you. General instructions ??? Take ebxa-mqs-bmvrjwr and prescription medicines only as told by [...] provider. Document Revised: 04/04/2018 Document Reviewed: 08/01/2017 Security Scorecard Patient Education ? 2020 [employer]. Cardiovascular Atrial Fibrillation Atrial fibrillation is a type [...] these instructions at home: Medicines ??? Take belo-fzp-jajyryi and prescription medicines only as told by [...] provider. Document Revised: 10/14/2019 Document Reviewed: 10/14/2019 [employer] Patient Education ? 2020 [employer]. Nutrition Heart-Healthy Eating Plan Heart-healthy meal planning includes: [...] plate with lean protein foods. ??? Eat 4?5 servings of vegetables per day. A serving of vegetables is: ? 1 cup of raw or cooked vegetables. ? 2 cups of raw leafy greens. ??? Eat 4?5 servings of fruit per day. A serving of fruit is: ? 1 medium whole fruit. ? ? cup of dried fruit. ? ? cup of fresh, frozen, or canned fruit. ? ? cup of 100% fruit juice. ??? Eat more foods that have soluble fiber. These are apples, broccoli, carrots, beans, peas, and barley. Try to get 20?30 g of fiber per day. ??? Eat 4?5 servings of nuts, legumes, and seeds per week: ? 1 serving of dried beans or legumes equals ? cup after being cooked. ? 1 serving of nuts is ? cup. ? 1 serving of seeds equals [...] Fats and oils Meat fat, or shortening. [place] butter, hydrogenated oils, palm oil, coconut oil, [...] provider. Document Revised: 06/26/2018 Document Reviewed: 05/30/2018 Security Scorecard Patient Education ? 2020 [employer]. Pharmacology Aspirin and Your Heart Aspirin is a [...] The two forms of aspirin are: ? Jsj-kewemkp-qdwsit.This type of aspirin does not have a coating and is absorbed quickly. This type of aspirin also comes in a chewable form. ? Enteric-coated. This type of aspirin has a coating that releases the medicine very slowly. Enteric-coated aspirin might cause less stomach upset than hoc-ttcdhot-hklpli aspirin. This type of aspirin should not be chewed or crushed. ??? Limit alcohol intake to no more than 1 drink a day for non women and 2 drinks a day for men. Drinking alcohol increases your risk of bleeding. One drink equals 12 oz of beer, 5 oz of wine, or 1? oz of hard liquor. Contact a health [...] provider. Document Revised: 02/20/2018 Document Reviewed: 02/20/2018 Security Scorecard Patient Education ? 2020 [employer] Procedures Cardiac Ablation, Care After This sheet gives [...] and water are not available, use hand racing secretary. ? Change your dressing as told by [...] safe for you. General instructions ??? Take nmoy-wyi-zdfzusv and prescription medicines only as told by [...] provider. Document Revised: 04/04/2018 Document Reviewed: 08/01/2017 Security Scorecard Patient Education ? 2020 [employer]. Cardiac Ablation Cardiac ablation is a procedure [...] provider. Document Revised: 04/04/2018 Document Reviewed: 03/11/2017 [employer]M Patient Education ? 2019 [employer]. Electronically signed by Braeden Fan Conversion Aircraft Rigging And Controls Mechanic Cerner at 08/26/2022 1:49 PM CDT documented in this encounter Plan of Treatment Upcoming Encounters Date Type Department Care Team (Late st Contact Info) Description 01/19/2025 10:45 AM EDT Office Visit [facility] - [address] [facility] [address] [place] [address] Octavio Larsen MD [facility] [address] [place] [address] 04/20/2025 10:45 AM EST Office Visit [facility] Electrophysiology [address] [place] [address] Diogo Mesa MD [address] [facility] [address] [place] [address] documented as of this encounter Visit Diagnoses Not on filedocumented in this encounter Care Teams Supervisor Wheel Shop Relationship Specialty Start Date End Date Balaji Rasmussen MD [address] [place] [address] PCP - General Family Medicine 05/10/22 documented as of this encounter
--- OUTSIDE RECORDS SUMMARY | 2025-01-06 07:03 | XMS_ITS | Encounter Summary ---
Author Organization [employer] ([place], [place], [place], [place]) Address [address] [place] [address] Care Team Providers Care Shock Absorber Installer Name Role Phone Balaji Rasmussen MD Primary Care Provider [phone] Encounter Details Date Type Department Care Team (Late st Contact Info) Description 11/30/2020 Transcribed Document [facility] Family Medicine [address] [place] [address] ProviderMahi MD [address] [place], [place] [id number] Social History Tobacco Use Types Packs/Day Years Used Date Smoking Tobacco: Never Assessed Sex and Gender Information Value Date Recorded Sex Assigned at Not on file Legal Sex Male 5:42 PM CDT Gender Identity Not on file Sexual Orientation Not on file documented as of this encounter Miscellaneous Notes * Cerner Conversion Note - Mahi ProviderMD - 11/30/2020 1:25 PM CDT Pain Assessment Entered On: 11/30/2020 21:19 EDT Performed On: 11/30/2020 20:38 EDT by Michelle Dumont RN Intervention Information: acetaminophen Performed by Michelle Dumont RN on 11/30/2020 19:38:00 EDT acetaminophen,500mg Oral,Pain (Mild 1-3) Pain Assessment Pain Assessment : Follow-up assessment Pain Scale Goal : 3 Pain Scale Used : 0-10 Scale Michelle Dumont RN - 11/30/2020 21:19 EDT Pain Scale Intensity : 1 Michelle Dumont, CLINT - 11/30/2020 21:19 EDT Image 4 - Images currently included in the form version of this document have not been included in the text rendition version of the form. documented in this encounter Plan of Treatment Upcoming Encounters Date Type Department Care Team (Late st Contact Info) Description 01/19/2025 10:45 AM EDT Office Visit [facility] - [facility] [address] [place] [phone] Octavio Larsen MD [address] [facility] [address] [place] [address] 04/20/2025 10:45 AM EST Office Visit [facility] Electrophysiology [address] [place] [address] [place] [address] [place] [address] [address] [place] [address] documented as of this encounter Visit Diagnoses Not on filedocumented in this encounter Care Teams Shock Absorber Installer Relationship Specialty Start Date End Date Balaji Rasmussen MD [address] [place] [address] PCP - General Family Medicine 05/10/22 documented as of this encounter
--- OUTSIDE RECORDS SUMMARY | 2025-01-06 07:03 | XMS_ITS | Encounter Summary ---
Author Organization [employer] ([place], [place], [place], [place]) Address [address] [place] [address] Care Team Providers Care Child Care Center Assistant Director Name Role Phone Balaji Rasmussen MD Primary Care Provider [phone] Encounter Details Date Type Department Care Team (Late st Contact Info) Description 12/01/2020 Transcribed Document [facility] Family [place] [address] ProviderMahi MD [address] [place] [id number] Social History Tobacco Use Types Packs/Day Years Used Date Smoking Tobacco: Never Assessed Sex and Gender Information Value Date Recorded Sex Assigned at Not on file Legal Sex Male 5:42 PM CDT Gender Identity Not on file Sexual Orientation Not on file documented as of this encounter Miscellaneous Notes * Cerner Conversion Note - Mahi ProviderMD - 12/01/2020 11:46 AM CDT Nursing Discharge Summary Entered On: 12/01/2020 11:46 EDT Performed On: 12/01/2020 11:46 EDT by OZZIE ZHAO CNA Discharge Documentation Discharge Date/Time : 12/01/2020 11:21 EDT Patient Disposition, General : Discharge Discharge To : Home with ambulatory/outpatient follow-up Mode Of Departure, General Discharge : Ambulatory, Private vehicle Accompanied By, Discharge : Spouse IV Discontinued : Yes Personal Belongings With Patient : No personal belongings to return Pt's Own Supply of Medications Returned : No patient supply of medications to return Prescriptions Given to Patient : Electronically sent Medications Given to Patient : No Discharge Instructions Reviewed With, Opportunity For Questions Given : Patient, Spouse Patient Education Completed : Yes Teaching Method : Explanation, Printed materials Teaching Evaluation : Verbalizes understanding OZZIE ZHAO, FAISAL - 12/01/2020 11:46 EDT Electronically signed by [facility] Conversion Automotive Mechanical Engineer Cerner at 08/26/2022 1:53 PM CDT documented in this encounter Plan of Treatment Upcoming Encounters Date Type Department Care Team (Late st Contact Info) Description 01/19/2025 10:45 AM EDT Office Visit [facility] - [facility] [address] [facility] [address] [place] [address] Octavio Larsen MD [address] [facility] [address] [place] [address] 04/20/2025 10:45 AM EST Office Visit [facility] Electrophysiology [address] [place] [address] [place] [address] [place] [address] [address] [place] [address] documented as of this encounter Visit Diagnoses Not on filedocumented in this encounter Care Teams Child Care Center Assistant Director Relationship Specialty Start Date End Date Balaji Rasmussen MD [address] [place] [address] PCP - General Family Medicine 05/10/22 documented as of this encounter
--- OUTSIDE RECORDS SUMMARY | 2025-01-06 07:03 | XMS_ITS | Encounter Summary ---
Author Organization [employer] ([place], [place], [place], [place]) Address [address] [place] [address] Care Team Providers Care Customs Entry Writer Name Role Phone Balaji Rasmussen MD Primary Care Provider [phone] Encounter Details Date Type Department Care Team (Late st Contact Info) Description 10/22/2018 Transcribed Document [facility] Family Medicine [address] [place] [address] ProviderMahi MD [address] [place] [address] Social History Tobacco Use Types Packs/Day Years Used Date Smoking Tobacco: Never Assessed Sex and Gender Information Value Date Recorded Sex Assigned at Not on file Legal Sex Male 5:42 PM CDT Gender Identity Not on file Sexual Orientation Not on file documented as of this encounter Miscellaneous Notes * Cerner Conversion Note - Mahi ProviderMD - 10/22/2018 8:00 AM CDT [facility] Main OR PACU Summary Primary Physician: MOSES MCKAY MD Finalized Date/Time: 10/22/18 15:29:26 Pt. Name: LAITH CORTEZ D.O.B./Sex: 1960 Male Med Rec #: [id number] Physician: MOSES MKCAY MD Financial #: [id number] Pt. Type: O Room/Bed: [facility]1 Admit/Disch: 10/22/18 06:12:00 - Institution: [facility] Main OR PACU I Case Times Entry 1 In PACU I 10/22/18 13:50:00 Ready for PACU 10/22/18 15:05:00 Discharge Discharge from PACU 10/22/18 15:05:00 I Last Modified By: Alden Patel RN 10/22/18 15:29:14 Finalized By: Alden Patel, RN Document Signatures Signed By: Alden Patel RN 10/22/18 15:29 Electronically signed by [facility] Conversion Legal Summer Intern Cerner at 08/21/2022 2:50 PM CDT documented in this encounter Plan of Treatment Upcoming Encounters Date Type Department Care Team (Late st Contact Info) Description 01/19/2025 10:45 AM EDT Office Visit [facility] - [facility] [address] [place] [address] Octavio Larsen MD [address] [facility] [address] [place] [address] 04/20/2025 10:45 AM EST Office Visit [facility] Electrophysiology [address] [place] [phone] Diogo Mesa MD [address] [facility] [address] [place] [address] documented as of this encounter Visit Diagnoses Not on filedocumented in this encounter Care Teams Customs Entry Writer Relationship Specialty Start Date End Date Balaji Rasmussen MD [address] [place] [address] PCP - General Family Medicine 05/10/22 documented as of this encounter
--- OUTSIDE RECORDS SUMMARY | 2025-01-06 07:03 | XMS_ITS | Encounter Summary ---
Author Organization [employer] ([place], [place], [place], [place]) Address [address] [place] [address] Care Team Providers Care Machine Assembler Supervisor Name Role Phone Balaji Rasmussen MD Primary Care Provider [phone] [phone] Encounter Details Date Type Department Care Team (Late st Contact Info) Description 12/01/2020 Transcribed Document [facility] Family Medicine [address] [place] [address] ProviderMahi MD [address] [place], [place] [id number] Social History Tobacco Use Types Packs/Day Years Used Date Smoking Tobacco: Never Assessed Sex and Gender Information Value Date Recorded Sex Assigned at Not on file Legal Sex Male 5:42 PM CDT Gender Identity Not on file Sexual Orientation Not on file documented as of this encounter Miscellaneous Notes * Cerner Conversion Note - Historical ProviderMD - 12/01/2020 10:50 AM CDT Stroke/Warfarin Instructions Entered On: 12/01/2020 10:50 EDT Performed On: 12/01/2020 10:50 EDT by OZIZE ZHAO CNA Stroke/Warfarin Instructions Stroke/TIA Discharge Ins : N/A Warfarin Discharge Ins : N/A OZZIE ZHAO CNA - 12/01/2020 10:50 EDT documented in this encounter Plan of Treatment Upcoming Encounters Date Type Department Care Team (Late st Contact Info) Description 01/19/2025 10:45 AM EDT Office Visit [facility] [address] [place] [address] Octavio Larsen MD [address] [place] [address] 04/20/2025 10:45 AM EST Office Visit [facility] Elect[facility]iology [address] [place] [address] Diogo Mesa MD [address] [facility] [address] [place], [place] [id number] documented as of this encounter Visit Diagnoses Not on filedocumented in this encounter Care Teams Machine Assembler Supervisor Relationship Specialty Start Date End Date Balaji Rasmussen MD [address] [place] [address] PCP - General Family Medicine 05/10/22 documented as of this encounter
--- OUTSIDE RECORDS SUMMARY | 2025-01-06 07:04 | XMS_ITS | Encounter Summary ---
Author Organization [employer] ([place], [place], [place], [place]) Address [address] [place] [address] Care Team Providers Care Slate Splitting Supervisor Name Role Phone Balaji Rasmussen MD Primary Care Provider [phone] [phone] Encounter Details Date Type Department Care Team (Late st Contact Info) Description 10/23/[address] [facility] Family Medicine [address] [place] [address] ProviderMahi MD [address] [place] [address] Social History Tobacco Use Types Packs/Day Years Used Date Smoking Tobacco: Never Assessed Sex and Gender Information Value Date Recorded Sex Assigned at Not on file Legal Sex Male 5:42 PM CDT Gender Identity Not on file Sexual Orientation Not on file documented as of this encounter Miscellaneous Notes * Cerner Conversion Note - Mahi ProviderMD - 10/23/2018 8:17 AM CDT Stroke/Warfarin Instructions Entered On: 10/23/2018 8:18 EDT Performed On: 10/23/2018 8:17 EDT by Balaji Saunders Rn Stroke/Warfarin Instructions Stroke/TIA Discharge Ins : N/A Warfarin Discharge Ins : N/A Balaji Saunders Rn - 10/23/2018 8:17 EDT Stroke/TIA Discharge Instructions My LDL Level: : LDL Level No qualifying data available. Balaji Saunders Rn - 10/23/2018 8:17 EDT Electronically signed by Meng, [facility] Conversion Cfd Engineer Cerner at 08/21/2022 2:45 PM CDT documented in this encounter Plan of Treatment Upcoming Encounters Date Type Department Care Team (Late st Contact Info) Description 01/19/2025 10:45 AM EDT Office Visit [facility] [address] [place] [address] Octavio Larsen MD [address] [facility] [address] [place] [address] 04/20/2025 10:45 AM EST Office Visit [facility] Electrophysiology [address] [place] [address] Diogo Mesa MD [address] [facility] [address] [place] [address] documented as of this encounter Visit Diagnoses Not on filedocumented in this encounter Care Teams Slate Splitting Supervisor Relationship Specialty Start Date End Date Balaji Rasmussen MD [address] [place] [address] PCP - General Family Medicine 05/10/22 documented as of this encounter
--- OUTSIDE RECORDS SUMMARY | 2025-01-06 07:04 | XMS_ITS | Encounter Summary ---
Author Organization [employer] ([place], [place], [place], [place]) Address [address] [place] [address] Care Team Providers Care Mouse Breeder Name Role Phone Balaji Rasmussen MD Primary Care Provider [phone] [phone] Encounter Details Date Type Department Care Team (Late st Contact Info) Description 10/23/2018 Transcribed Document [facility] Family Medicine [address] [place] [address] ProviderMahi MD [address] [place] [address] Social History Tobacco Use Types Packs/Day Years Used Date Smoking Tobacco: Never Assessed Sex and Gender Information Value Date Recorded Sex Assigned at Not on file Legal Sex Male 5:42 PM CDT Gender Identity Not on file Sexual Orientation Not on file documented as of this encounter Miscellaneous Notes * Cerner Conversion Note - Mahi ProviderMD - 10/23/2018 8:08 AM CDT Stroke/Warfarin Instructions Entered On: 10/23/2018 8:08 EDT Performed On: 10/23/2018 8:08 EDT by Balaji Saunders, Rn Stroke/Warfarin Instructions Stroke/TIA Discharge Ins : N/A Warfarin Discharge Ins : N/A Balaji Saunders, Rn - 10/23/2018 8:08 EDT documented in this encounter Plan of Treatment Upcoming Encounters Date Type Department Care Team (Late st Contact Info) Description 01/19/2025 10:45 AM EDT Office Visit [facility] [address] [place] [address] Octavio Larsen MD [address] [place] [address] 04/20/2025 10:45 AM EST Office Visit [facility] Electrophysiology [address] [place] [address] Diogo Mesa MD [address] [facility] [address] [place] [address] documented as of this encounter Visit Diagnoses Not on filedocumented in this encounter Care Teams Mouse Breeder Relationship Specialty Start Date End Date Balaji Rasmussen MD [address] [place], [place] [id number] PCP - General Family Medicine 05/10/22 documented as of this encounter
--- OUTSIDE RECORDS SUMMARY | 2025-01-06 07:04 | XMS_ITS | Encounter Summary ---
Author Organization [employer] ([place], [place], [place], [place]) Address [address] [place] [address] Care Team Providers Care Automation Control Technician Name Role Phone Balaji Rasmussen MD Primary Care Provider [phone] [phone] Encounter Details Date Type Department Care Team (Late st Contact Info) Description 10/23/2018 Transcribed Document [facility] Family Medicine [address] [place] [address] ProviderMahi MD [address] [place] [address] Social History Tobacco Use Types Packs/Day Years Used Date Smoking Tobacco: Never Assessed Sex and Gender Information Value Date Recorded Sex Assigned at Not on file Legal Sex Male 5:42 PM CDT Gender Identity Not on file Sexual Orientation Not on file documented as of this encounter Miscellaneous Notes * Cerner Conversion Note - Mahi Hamm MD - 10/23/2018 10:[address] [facility] [place] [address] [address] NELLY Felisa :1960 Visit Time:10/22/2018 Your Visit Summary Your Care Team Admitting Physician - MOSES MCKAY MD Attending Physician - MOSES MCKAY MD Primary Care Physician - CHE CROSS (REF)MD Referring Physician - MOSES MCKAY MD Your Diagnosis Paroxysmal atrial fibrillation, Paroxysmal atrial fibrillation What to do next Instructions From Your Care Team Please STOP taking Aspirin Discharge Activity: Discharge Activity: No strenuous activities Diet: Discharge Diet: Regular diet as tolerated Showering/Bathing Instructions: No tub bathing, soaking, or swimming Driving Restriction: No driving until 24 hours after taking pain medication Follow-Up Appointments Follow Up with MOSES YE When 11/14/2018 10:15 AM EDT Comments Appointment has been made Where: [address] [place] [address]- Business (1) Medications What How Much When Instructions Next Dose apixaban (Eliquis 5 mg oral tablet) 1 Tablet(s) Oral Interval Every 12 Hours Duration: 30 Day(s) Refills: 3 Pickup at [facility] pantoprazole (Protonix 40 mg oral delayed release tablet) 1 Tablet(s) Oral Every Day Duration: 30 Day(s) Pickup at [facility] sucralfate (Carafate 1 g/ 10 mL oral suspension) 10 Milliliter(s) Oral Before Meals Duration: 14 Day(s) Pickup at [facility] flecainide 50 Milligram(s) Oral Every 12 hours magnesium oxide 400 Milligram(s) Oral Every Day metoprolol (metoprolol tartrate) 12.5 Milligram(s) Oral Two Times A Day multivitamin (One-A-Day Men's Health Formula oral tablet) 1 Tablet(s) Oral Every Day omega-3 polyunsaturated fatty acids (Fish Oil) 1,000 Milligram(s) Oral Every Day ubiquinone (Co Q-10) 1,000 Milligram(s) Oral Saturday Pharmacy Information [facility]: [address] [address] [phone] Take your medications faithfully. Do NOT skip [...] per your retail pharmacy guidance. Allergies Fish (C/O: a swelling~C/O: itching, C/O: a swelling, C/O: itching) penicillins (C/O: a swelling~C/O: itching, C/O: a swelling, C/O: itching) Immunizations This Visit No Immunizations Found Stroke/TIA Instructions Mutually Agreed Upon Goals My LDL Level: My LDL Level: Education [employer] Atrial Fibrillation Atrial fibrillation is a type of heartbeat that is irregular or fast (rapid). If you have this condition, your heart keeps quivering in a weird (chaotic) way. This condition can make it so your heart cannot pump blood normally. Having this condition gives a person more risk for stroke, heart failure, and other heart problems. There are different types of atrial fibrillation. Talk with your doctor to learn about the type that you have. Follow these instructions at home: ??? Take ckgt-aye-idrwbia and prescription medicines only as told by your doctor. ??? If your doctor prescribed a blood-thinning medicine, take it exactly as told. Taking too much of it can cause bleeding. If you do not take enough of it, you will not have the protection that you need against stroke and other problems. ??? Do not use any tobacco products. These include cigarettes, chewing tobacco, and e-cigarettes. If you need help quitting, ask your doctor. ??? If you have apnea (obstructive sleep apnea), manage it as told by your doctor. ??? Do not drink alcohol. ??? Do not drink beverages that have caffeine. These include coffee, soda, and tea. ??? Maintain a healthy weight. Do not use diet pills unless your doctor says they are safe for you. Diet pills may make heart problems worse. ??? Follow diet instructions as told by your doctor. ??? Exercise regularly as told by your doctor. ??? Keep all follow-up visits as told by your doctor. This is important. Contact a doctor if: ??? You notice a change in the speed, rhythm, or strength of your heartbeat. ??? You are taking a blood-thinning medicine and you notice more bruising. ??? You get tired more easily when you move or exercise. Get help right away if: ??? You have pain in your chest or your belly (abdomen). ??? You have sweating or weakness. ??? You feel sick to your stomach (nauseous). ??? You notice blood in your throw up (vomit), poop (stool), or pee (urine). ??? You are short of breath. ??? You suddenly have swollen feet and ankles. ??? You feel dizzy. ??? Your suddenly get weak or numb in your face, arms, or legs, especially if it happens on one side of your body. ??? You have trouble talking, trouble understanding, or both. ??? Your face or your eyelid droops on one side. These symptoms may be an emergency. Do not wait to see if the symptoms will go away. Get medical help right away. Call your local emergency services (911 in the [place] Do not drive yourself to the hospital. This information is not intended to replace advice given to you by your health care provider. Make sure you discuss any questions you have with your health care provider. Document Released: 01/29/2009 Document Revised: 09/27/2016 Document Reviewed: 08/17/2015 [employer] Interactive Patient Education ?? 2019 [employer]. Cardiac Ablation Cardiac ablation is a [...] have with your health care provider. Document Released: 12/23/2013 Document Revised: 03/11/2017 Document Reviewed: 03/11/2017 [employer] Interactive Patient Education ?? 2019 [employer]. Emergency Awareness and Preventative Care STROKE is [...] Assistance with quitting is available by contacting 7-767-NRBUConceptua MathNOW. This is a free resource providing counseling, [...] CPR? There are two easy steps: Call if you see a teen or adult [...] and how to prevent infections, visit www.cdc.gov/sepsis. Patient Portal Reminder: Be sure to sign up for the [employer] patient portal, which gives you 24/7 access to your medical information ??? including these discharge instructions ??? using your computer, smartphone, or tablet. Just go to [employer] to get started. Questions? Call . Test Results Laboratory or Other Results This Visit (last charted value for your 10/22/2018 visit) Hematology 10/23/18 03:28:00 WBC: 5.6 K/uL -- Normal range between ( 3.6 and 9.5 ) RBC: 3.91 Million/uL -- Normal range between ( 4.20 and 5.70 ) Hct: 34.6 % -- Normal range between ( 40.1 and 51.0 ) Hgb: 11.5 g/dL -- Normal range between ( 13.5 and 17.3 ) Platelet Count: 136 K/uL -- Normal range between ( 163 and 369 ) MCH: 29.4 pg -- Normal range between ( 25.6 and 32.2 ) MCHC: 33.2 Gram/dL -- Normal range between ( 32.2 and 36.5 ) MCV: 88.5 fL -- Normal range between ( 79.0 and 94.8 ) Slide Review: No Eos %: 0.5 % -- Normal range between ( 0.0 and 7.0 ) Ziebach #: 0.62 K/uL -- Normal range between ( 0.16 and 1.00 ) Eos #: 0.03 x10(3)/uL -- Normal range between ( 0.00 and 0.80 ) Ziebach %: 11.0 % -- Normal range between ( 3.0 and 9.0 ) Baso %: 0.2 % -- Normal range between ( 0.0 and 1.5 ) Baso #: 0.01 x10(3)/uL -- Normal range between ( 0.00 and 0.20 ) RDW: 12.9 % -- Normal range between ( 11.7 and 14.9 ) Neut %: 70.8 % -- Normal range between ( 34.0 and 71.0 ) Neut #: 3.98 K/uL -- Normal range between ( 1.56 and 6.13 ) Lymph %: 17.1 % -- Normal range between ( 19.3 and 53.1 ) Lymph #: 0.96 x10(3)/uL -- Normal range between ( 1.00 and 3.90 ) MPV: 9.5 fL -- Normal range between ( 9.4 and 12.4 ) IG#: 0.02 x10(3)/uL -- Normal range between ( 0.00 and 0.05 ) IG%: 0.40 % -- Normal range between ( 0.00 and 0.60 ) 10/22/18 07:03:00 Hemoglobin POC: 14.3 Gram/dL -- Normal range between ( 12.0 and 17.0 ) Hematocrit POC: 42.0 % -- Normal range between ( 38.0 and 51.0 ) General Chemistry 10/23/18 03:28:00 Creatinine Level: 0.80 mg/dL -- Normal range between ( 0.70 and 1.30 ) Sodium Level: 139 mmol/L -- Normal range between ( 136 and 146 ) Potassium Level: 4.3 mmol/L -- Normal range between ( 3.5 and 5.1 ) Chloride Level: 108 mmol/L -- Normal range between ( 102 and 112 ) Carbon Dioxide Level: 28 mmol/L -- Normal range between ( 21 and 32 ) Anion Gap: 7 -- Normal range between ( 9 and 20 ) Bun/Creatinine: 20.0 -- Normal range between ( 8.0 and 20.0 ) Calcium Level: 8.0 mg/dL -- Normal range between ( 8.4 and 10.1 ) eGFR : >60 mL/min/1.73m2 eGFR NonAfrican: >60 mL/min/1.73m2 Glucose Level: 104 mg/dL -- Normal range between ( 74 and 106 ) Magnesium Level: 2.2 mg/dL -- Normal range between ( 1.5 and 2.4 ) Blood Urea Nitrogen: 16 mg/dL -- Normal range between ( 7 and 22 ) 10/22/18 07:03:00 Sodium POC: 140 mmol/L -- Normal range between ( 138 and 146 ) Ca Ioniz POC: 1.25 mmol/L -- Normal range between ( 1.12 and 1.32 ) Potassium POC: 4.0 mmol/L -- Normal range between ( 3.5 and 4.9 ) Creatinine POC: 0.9 mg/dL -- Normal range between ( 0.6 and 1.3 ) BUN POC: 24 mg/dL -- Normal range between ( 8 and 26 ) CO2 POC: 27.0 mmol/L -- Normal range between ( 24.0 and 29.0 ) Chloride POC: 102 mmol/L -- Normal range between ( 98 and 109 ) Glucose POC: 98 mg/dL -- Normal range between ( 70 and 105 ) Anion Gap POC: 15.0 mmol/L -- Normal range between ( 10.0 and 20.0 ) Coagulation 10/22/18 14:34:00 ACT POC: 186 Second(s) -- Normal range between ( 74 and 137 ) Echo 10/22/18 14:03:47 [facility] / Follow Up: [facility] / Follow Up Patient Name:NELLY CORTEZ I have received and understand this information and was given the opportunity to ask questions. Patient/Workers' Compensation Claims Examiner Name: Patient/Workers' Compensation Claims Examiner Signature: Relationship to Patient: Clinician/Hospital Workers' Compensation Claims Examiner Signature: Date: documented in this encounter Plan of Treatment Upcoming Encounters Date Type Department Care Team (Late st Contact Info) Description 01/19/2025 10:45 AM EDT Office Visit [facility] [address] [place] [address] Octavio Larsen MD [address] [place] [address] 04/20/2025 10:45 AM EST Office Visit [facility] Electrophysiology [address] [place] [address] Diogo Mesa MD [address] [facility] [address] [place], [place] [id number] documented as of this encounter Visit Diagnoses Not on filedocumented in this encounter Care Teams Automation Control Technician Relationship Specialty Start Date End Date Balaji Rasmussen MD [address] [place] [address] PCP - General Family Medicine 05/10/22 documented as of this encounter
--- OUTSIDE RECORDS SUMMARY | 2025-01-06 07:04 | XMS_ITS | Encounter Summary ---
Author Organization [employer] ([place], [place], [place], [place]) Address [address] [place] [address] Care Team Providers Care Bleach Boiler Filler Name Role Phone Balaji Rasmussen MD Primary Care Provider [phone] [phone] Encounter Details Date Type Department Care Team (Late st Contact Info) Description 10/22/2018 Transcribed Document [facility] [place] [address] [place] [address] ProviderMahi MD [address] [place] [address] Social History Tobacco Use Types Packs/Day Years Used Date Smoking Tobacco: Never Assessed Sex and Gender Information Value Date Recorded Sex Assigned at Not on file Legal Sex Male 5:42 PM CDT Gender Identity Not on file Sexual Orientation Not on file documented as of this encounter Miscellaneous Notes * Cerner Conversion Note - Mahi ProviderMD - 10/22/2018 10:37 AM CDT Pain Assessment Entered On: 10/23/2018 0:34 EDT Performed On: 10/22/2018 23:46 EDT by Cassandra Hamm RN Intervention Information: acetaminophen Performed by Cassandra Hamm RN on 10/22/2018 22:46:00 EDT acetaminophen,650mg Oral,Pain (Mild 1-3) Pain Assessment Pain Assessment : Follow-up assessment Pain Scale Goal : 2 Pain Scale Used : 0-10 Scale Cassandra Hamm RN - 10/23/2018 0:34 EDT Pain Scale Intensity : 1 Noris, Cassandra R, RN - 10/23/2018 0:34 EDT Image 4 - Images currently included in the form version of this document have not been included in the text rendition version of the form. documented in this encounter Plan of Treatment Upcoming Encounters Date Type Department Care Team (Late st Contact Info) Description 01/19/2025 10:45 AM EDT [facility] [address] [place] [address] Octavio Larsen MD [address] [facility] [address] [place] [address] 04/20/2025 10:45 AM EST Office Visit [facility] Electrophysiology [address] [place] [address] Diogo Mesa MD [address] [place] [address] [address] [place] [address] documented as of this encounter Visit Diagnoses Not on filedocumented in this encounter Care Teams Bleach Boiler Filler Relationship Specialty Start Date End Date Balaji Rasmussen MD [address] [place] [address] PCP - General Family Medicine 05/10/22 documented as of this encounter
--- OUTSIDE RECORDS SUMMARY | 2025-01-06 07:04 | XMS_ITS | Encounter Summary ---
Author Organization [employer] ([place], [place], [place], [place]) Address [address] [place] [address] Care Team Providers Care Fitter Type Bar And Segment Name Role Phone Balaji Rasmussen MD Primary Care Provider [phone] [phone] Encounter Details Date Type Department Care Team (Late st Contact Info) Description 10/23/2018 Transcribed Document [facility] [place] Medicine [address] [place] [address] ProviderMahi MD [address] [place] [address] Social History Tobacco Use Types Packs/Day Years Used Date Smoking Tobacco: Never Assessed Sex and Gender Information Value Date Recorded Sex Assigned at Not on file Legal Sex Male 5:42 PM CDT Gender Identity Not on file Sexual Orientation Not on file documented as of this encounter Miscellaneous Notes * Cerner Conversion Note - Historical ProviderMD - 10/23/2018 7:54 PM CDT DATE OF ADMISSION: 10/22/2018 DATE OF DISCHARGE: 10/23/2018 DISCHARGE DIAGNOSIS: Symptomatic paroxysmal atrial fibrillation status post ablation. HISTORY OF PRESENT ILLNESS/HOSPITAL COURSE: Mr. Rodriguez is a 58-year-old pleasant gentleman with past medical history significant for symptomatic paroxysmal AFib, has become refractory to flecainide, with markedly increased burden recently, came yesterday where he had complex AFib and atrial flutter ablation. He did well with no issues and remained in sinus rhythm overnight. Limited echo post ablation showed normal LV function with no evidence of pericardial effusion. He was started on Protonix 40 mg daily and Carafate 1gm p.o. t.i.d. He was continued on flecainide. He was started on Eliquis 5 mg b.i.d. for 3 months post ablation. His groins remained clean with no evidence of bleeding or hematoma. Cardiac exam showed regular rhythm with normal S1, S2, and lung exam was clear with no evidence of wheezing or crackles. He was discharged home in stable condition with normal hemodynamics. DISCHARGE INSTRUCTIONS: 1. No driving for 24 hours. 2. No lifting more than 5 pounds or strenuous activity for one week. 3. Follow up in the office in three to four weeks. DISCHARGE MEDICATIONS: He will continue the same with addition of Eliquis 5 mg p.o. t.i.d. for 3 months, aspirin was discontinued, Protonix 40 mg daily for 1 month and Carafate 1 gm p.o. t.i.d. for 2 weeks were started. Thank you so much for allowing us to participate in the care of this patient. Shavon Ricci MD Dict: 10/23/2018 19:54:37 Trans: 10/24/2018 00:45:13 Processed: 10/24/2018 09:48:27 [place] CC1: Shavon Ricci MD Electronically signed by [facility] Conversion Truck Spotter Cerner at 08/21/2022 2:52 PM CDT documented in this encounter Plan of Treatment Upcoming Encounters Date Type Department Care Team (Late st Contact Info) Description 01/19/2025 10:45 AM EDT Office Visit [facility] - [facility] [address] Octavio Larsen MD [address] [facility] [address] [place] [address] 04/20/2025 10:45 AM EST Office Visit [facility] Electrophysiology [address] [place], [place] [address] Diogo Mesa MD [address] [place] [address] [address] [place] [id number] documented as of this encounter Visit Diagnoses Not on filedocumented in this encounter Care Teams Fitter Type Bar And Segment Relationship Specialty Start Date End Date Balaji Rasmussen MD [address] [place] [address] PCP - General Family Medicine 05/10/22 documented as of this encounter
--- OUTSIDE RECORDS SUMMARY | 2025-01-06 07:04 | XMS_ITS | Clinical Summary ---
Author Organization [facility] Address [address] [place] [address] Care Team Providers Care Head Neck Surgeon Name Role Phone Jose Leavitt MD Primary Care Provider Allergies Active Allergy Reactions Criticality Noted Date Comments Penicillins Swelling 11/18/2018 Medications ELIQUIS 5 MG tablet tablet Take 5 mg by mouth Every 12 (Twelve) Hours. 3 9 Active metoprolol tartrate (LOPRESSOR) 25 MG tablet Take 12.5 mg by mouth 2 (Two) Times a Day. 7 9 Active flecainide (TAMBOCOR) 50 MG tablet TAKE 1 & 1 2 (ONE & ONE HALF) TABLETS BY MOUTH IN THE MORNING AND 1 &1 2 (ONE & ONE HALF) IN THE EVENING 0 9 Active pantoprazole (PROTONIX) 40 MG EC tablet Take 1 tablet by mouth 30 minutes before breakfast daily. 90 tablet 3 0 Active Active Problems Problem Noted Date Diagnosed Date History of colon cancer 06/22/2019 Bloating 06/22/2019 Bloating 06/22/2019 Esophageal dysphagia 11/18/2018 Gastroesophageal reflux disease with esophagitis 11/18/2018 Constipation 11/18/2018 Family History Medical History Relation Name Comments Colon cancer Neg Hx Colon polyps Neg Hx Social History Tobacco Use Types Packs/Day Years Used Date Smoking Tobacco: Former Smokeless Tobacco: Never Alcohol Use Standard Drinks/Week Comments No 0 (1 standard drink = 0.6 oz pur e alcohol) AUDIT-C Answer Date Recorded Frequency of Alcohol Consumption Never 11/18/2018 Average Number of Drinks Not on file 019 Frequency of Binge Drinking Not on file 11/03 Abuse Screen Answer Date Recorded Unsafe at Home or Work/School Not on file Feels Threatened by Someone? Not on file 04/2023 Does Anyone Keep You from Co ntacting Others or Doint Things Outside the Home? Not on file 02/14/2023 Physical Sign of Abuse Present Not on file 1 Housing Stability Answer Date Recorded Current Living Arrangements Not on file 02/03 Potentially Unsafe Housing Conditions Not on donald e 02/14/2023 Family and Community Support Answer Kristian e Recorded Help with Day-to-Day Activities Not on file 02/14/2023 Lonely or Isolated Not on file 02/14/2023 Employment Answer Date Recorded Do you want help finding or keeping work or a margaret b? Not on file 02/14/2023 Disabilities Answer Date Recorded Concentrating, Remembering, or Making Decisions Difficulty Not on file 02/14/2023 Doing Errands Independently Difficulty Not on fi le 02/14/2023 Education Answer Date Recorded Help with school or training? Not on file Preferred Language Not on file 02/14/2023 Sex and Gender Information Value Date Recorded Sex Assigned at Not on file Legal Sex Male 9:24 AM EDT Gender Identity Not on file Sexual Orientation Not on file Last Filed Vital Signs Vital Sign Reading Time Taken Comments Blood Pressure 138/78 06/22/2019 2:00 PM EST Pulse 69 06/22/2019 2:00 PM EST Temperature - - Respiratory Rate - - Oxygen Saturation - - Inhaled Oxygen Concentration - - Weight 104 kg (230 lb) 06/22/2019 2:00 PM EST Height - - Body Mass Index - - Plan of Treatment Health Maintenance Due Date Last Done Comments COLOGUARD 2005 COLON CANCER SCREENING 5 YEA R SIGMOIDOSCOPY 2005 COLONOSCOPY [address]CER SCREENING 2005 [address] COLONOGRAPHY 2005 FECAL OCCULT BLOOD TEST 2005 FIT Testing (1 year) 2005 Pneumococcal Vaccine 50+ (1 of 1 - PCV) 2010 ZOSTER VACCINE (1 of 2) 2010 ANNUAL PHYSICAL 08/25/2018 HEPATITIS C SCREENING 08/25/2018 COVID-19 Vaccine (2023- season) 2024 INFLUENZA VACCINE 02/03/2025 02/04/2019 TDAP/TD VACCINES (3 - Td or Tdap) 02/07/2028 018, 07/08/1996 Insurance [facility] Care Teams Head Neck Surgeon Relationship Specialty Start Date End Date Jose Leavitt MD [address] [facility] [address] [facility] [address] [place] [address] PCP - General Family Medicine 08/13/18
--- OUTSIDE RECORDS SUMMARY | 2025-01-06 07:04 | XMS_ITS | Encounter Summary ---
Author Organization [employer] ([place], [place], [place], [place]) Address [address] [place] [address] Care Team Providers Care College Basketball Coach Name Role Phone Balaji Rasmussen MD Primary Care Provider [phone] [phone] Encounter Details Date Type Department Care Team (Late st Contact Info) Description 10/23/2018 Transcribed Document [facility] Family Medicine [address] [place] [address] ProviderMahi MD [address] [place] [address] Social History Tobacco Use Types Packs/Day Years Used Date Smoking Tobacco: Never Assessed Sex and Gender Information Value Date Recorded Sex Assigned at Not on file Legal Sex Male 5:42 PM CDT Gender Identity Not on file Sexual Orientation Not on file documented as of this encounter Miscellaneous Notes * Cerner Conversion Note - Mahi ProviderMD - 10/23/2018 11:11 AM CDT Nursing Discharge Summary Entered On: 10/23/2018 11:11 EDT Performed On: 10/23/2018 11:11 EDT by Balaji Saunders Machine Or Machinery Mechanic Documentation Discharge Date/Time : 10/23/2018 11:11 EDT Patient Disposition, General : Discharge Discharge To : Home with ambulatory/outpatient follow-up Mode Of Departure, General Discharge : Private vehicle Accompanied By, Discharge : Spouse IV Discontinued : Yes Medications Given to Patient : Yes Personal Belongings With Patient : Yes Pt's Own Supply of Medications Returned : No Prescriptions Given to Patient : Electronically sent Discharge Instructions Reviewed With, Opportunity For Questions Given : Patient, Spouse Patient Education Completed : Yes Number of Medications Given : 1 Teaching Method : Explanation, Printed materials Teaching Evaluation : Verbalizes understanding Balaji Saunders, Rn - 10/23/2018 11:11 EDT Electronically signed by [facility] Conversion Business Continuity Specialist Cerner at 08/21/2022 2:46 PM CDT documented in this encounter Plan of Treatment Upcoming Encounters Date Type Department Care Team (Late st Contact Info) Description 01/19/2025 10:45 AM EDT Office Visit [facility] - [facility] [address] [place] [id number] Octavio Larsen MD [address] [facility] [address] [place] [address] 04/20/2025 10:45 AM EST Office Visit [facility] Electrophysiology [address] [place] [address] Diogo Mesa MD [address] [facility] [address] [place] [address] documented as of this encounter Visit Diagnoses Not on filedocumented in this encounter Care Teams College Basketball Coach Relationship Specialty Start Date End Date Balaji Rasmussen MD [address] [place] [address] PCP - General Family Medicine 05/10/22 documented as of this encounter
== END 2025-01-06 23:59 | disposition home or self-care (01) ==
LOC: RAD 06:59
PROVIDERS: PCP Family Medicine; Referring Provider Internal Medicine Hematology & Oncology; Visit Provider Family Medicine
DX: R91.8 Other nonspecific abnormal finding of lung field (principal); Z87.891 Personal history of nicotine dependence
CPT/HCPCS: 71271

== ENCOUNTER 2025-03-10 10:13 | Outpatient (CLI) | payer OTHER, BC, SELFPAY ==
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
--- OUTSIDE RECORDS SUMMARY | 2023-10-31 09:00 | XMS_ITS ---
[facility] Organization [facility] Address [address] [place] [address] [address] [place] [id number] Care Team Providers Care Word Processing Supervisor Name Role Phone Yaya Martins Primary Care Provider [phone] Sixto Rasmussen [phone] REASON FOR VISIT 6 mo ck Encounters Encounter Location Date Provider Diagnosis [facility] [address] [facility] [address] [facility] [address] [place] [id number] 10/31/2023 Sixto Rasmussen Plan Of Treatment Next Appt Details Provider Name:Sixto Paiz er, 04/16/2025 09:30:00 AM, [address] [facility] 36 [facility], [address], [place], [phone], Progress Notes * NELLY CORTEZDOB:1960 (64 yo M)Acc No.[id number]:10/31/2023 Progress Notes Patient: NELLY DUDLEY Provider: Sixto Rasmussen M.D. :1960 A ge:63 Y S ex:Male Date:10/31/2023 Address:[address] [place] [address] [id number] Pcp:Yaya Martins Subjective: * Chief Complaints: * 1 . 6 mo ck. * Medical History: Objective: * Vitals: Assessment: Plan: * Treatment: * Images: Billing Information: * Visit Code: * Procedure Codes: * Electronic signature of Sixto Rasmussen MD on 03/10/2025 at 10:26 AM EST Sign off status: Pending * Provider: Sixto Rasmussen M.D. Date: 0 10/31/2023 Generated for Chrissy dubois/Abad/Ade on: 1 05/10/2024 10:26 AM EST
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
--- OUTSIDE RECORDS SUMMARY | 2024-11-02 05:00 | XMS_ITS ---
Author Organization [facility] Address [address] [facility] [address] [facility] [address] [place] [id number] Care Team Providers Care Vaccinator Name Role Phone Eliezer Yaya Primary Care Provider Sixto Rasmussen [phone] Results Component Value Reference Range Notes P-Magnesium Reviewed date:11/04/2024 01:21:53 PM Interpretation:Normal Performing Lab: Notes/Report: CLIA: [id number] Parviz Maldonado MD, Student Assistant [address] [place] [address] , [address], [place] [address] Test performed by [facility], [facility] Magnesium 2.2 1.6-2.4 mg/dL REASON FOR VISIT blood work Problems Problem Type SNOMED Code ICD Code Onset Dates Problem Status W/U Status Risk Notes Problem Hypermagnesemia (27810252) Hypermagnesemia (E83.41) Active confirmed Problem Hypomagnesemia (510885955) Hypomagnesemia (E83.42) Active confirmed Encounters Encounter Location Date Provider Diagnosis [facility] [address] [facility] [address] [facility] [address] [place] [id number] 11/02/2024 Sixto Rasmussen Hypomagnesemia E83.4 2 Assessments Encounter Date Diagnosis (ICD Code) Assessment Notes Treatment Notes Treatment Clinical Notes Section Notes 11/02/2024 Hypomagnesemia (ICD-10 - E83.42) Plan Of Treatment Next Appt Details Provider Name:Sixto Paiz er, 04/16/2025 09:30:00 AM, [address] [facility], [address], [place], [id number], Progress Notes * NELLY CORTEZDOB:1960 (64 yo M)Acc No.[id number]:11/02/2024 Patient: NELLY DUDLEY Provider: Sixto Rasmussen M.D. :1960 A ge:64 Y S ex:Male Date:11/02/2024 Address:[address] [place] [address] [id number] Pcp:Yaya Martins Subjective: * Chief Complaints: * 1 . Blood work. * Medical History: Objective: * Vitals: Assessment: * Assessment: 1. H ypomagnesemia - E83.42 (Primary) Plan: * Treatment: Value Reference Range M agnesium 2.2 1.6-2.4 - mg/dL * Celena Jordan 11/04/2024 01: 21:37 PM EDT > Patient informed of normal results. * Images: Billing Information: * Visit Code: * Procedure Codes: * Electronic signature of Sixto Rasmussen MD on 03/10/2025 at 10:25 AM EST Sign off status: Pending * Provider: Sixto Rasmussen M.D. Date: 0 11/02/2024 Generated for Chrissy dubois/Abad/Danieleitting on: 1 05/10/2024 10:25 AM EST
--- OUTSIDE RECORDS SUMMARY | 2025-01-19 09:45 | XMS_ITS | Encounter Summary ---
Author Organization [employer] ([place], [place], [place], [place], [place]) Address [address] [place] [address] Care Team Providers Care Clinical Laboratory Manager Name Role Phone Balaji Rasmussen MD Primary Care Provider [phone] [phone] Reason for Visit * Reason Comments Follow-up Colon Cancer Encounter Details Date Type Department Care Team (Late st Contact Info) Description 01/19/2025 10:45 AM EDT Office Visit [facility] [place] [address] [place] [address] [address] [place] [address] Octavio Larsen MD [address] [facility] [address] [place] [address] Malignant neoplasm of ascending colon (HCC) Social History Tobacco Use Types Packs/Day [...] Date Billy rded Speak language other than Rwandan at home Not on file 05/17/2023 Want [...] on file documented as of this encounter Last Filed Vital Signs Vital Sign Reading Time Taken Comments Blood Pressure 112/77 01/19/2025 10:38 AM EDT Pulse 71 01/19/2025 10:38 AM EDT Temperature 36.6 C (97.9 F) 01/19/2025 10:38 AM EDT Respiratory Rate 18 01/19/2025 10:38 AM EDT Oxygen Saturation - - Inhaled Oxygen Concentration - - Weight 100.2 kg (221 lb) 01/19/2025 10:38 AM EDT Height 198.1 cm (6' 6 ) 01/19/2025 10:38 AM EDT Body Mass Index 25.54 01/19/2025 10:38 AM EDT documented in this encounter Progress Notes * Octavio Larsen MD - 01/19/2025 10:45 AM EDT Chief Complaint: History of Present Illness: Laith Rodriguez is a 64 y.o. male who presents today for follow up of colon cancer. He is many years out from his diagnosis. He quit smoking 14 years ago and had a screening scan of his lungs recently. He has lost a little bit of weight on purpose. He has had no cough shortness of breath abdominal pain change in bowel habits. He had a recent colonoscopy which was normal. No past medical history on file. No past surgical history on file. Cancer History: Oncology History No history exists. Allergies: Penicillins Medications: Current Outpatient Medications on File Prior to Visit Medication Sig Dispense Refill amitriptyline (ELAVIL) 25 MG tablet Take 1 tablet (25 mg total) by mouth nightly. ciclopirox (PENLAC) 8 % solution APPLY SOLUTION TOPICALLY TO ALL TOENAILS ONCE DAILY. CLEAN OFF WITH ALCOHOL EVERY 7TH DAY. samantha root-pyridoxine HCl,B6, 325-25 mg Cap Take by mouth. levothyroxine (SYNTHROID) 75 MCG tablet Take 50 mcg by mouth every morning. magnesium gluconate (MAGONATE) 27.5 mg magne- sium (500 mg) tablet Take 1 tablet (500 mg total) by mouth 2 (two) times daily. metoprolol tartrate (LOPRESSOR) 25 MG tablet Take 1/2 (one-half) tablet by mouth twice daily 90 tablet 3 multivit with min-folic acid 0.4 mg tab 1 tab(s) orally once a day for 30 day(s) pantoprazole (PROTONIX) [address] granules for suspension pantoprazole 40 mg intravenous solution Inject by intravenous route. turmeric 400 mg Cap Take by mouth. urea 41 % crea No current facility-administered medications on file prior to visit. Review of Systems: Review of Systems All other systems reviewed and are negative. Vitals: Vitals: 01/19/25 1038 BP: 112/77 Pulse: 71 Resp: 18 Temp: 97.9 ??F (36.6 ??C) Weight: 100.2 kg (221 lb) Height: 1.981 m (6' 6 ) PF: (!) 0 L/min Physical Exam: Physical Exam Vitals reviewed. Constitutional: Appearance: Normal appearance. HENT: Head: Normocephalic and atraumatic. Mouth/Throat: Mouth: Mucous membranes are moist. Pharynx: Oropharynx is clear. Eyes: Extraocular Movements: Extraocular movements intact. Conjunctiva/sclera: Conjunctivae normal. Pupils: Pupils are equal, round, and reactive to light. Neck: Comments: No cervical supraclavicular or axillary adenopathy Cardiovascular: Rate and Rhythm: Normal rate and regular rhythm. Pulses: Normal pulses. Heart sounds: Normal heart sounds. Pulmonary: Effort: Pulmonary effort is normal. Breath sounds: Normal breath sounds. Comments: No dullness to percussion in the lung bases bilaterally Abdominal: General: Abdomen is flat. Palpations: Abdomen is soft. Comments: No hepatomegaly below the right costal margin Musculoskeletal: General: Normal range of motion. Cervical back: Normal range of motion and neck supple. Comments: No areas of bone pain Neurological: General: No focal deficit present. Mental Status: He is alert. Mental status is at baseline. Comments: No deficits Relevant Results: Office Visit on 01/19/2025 Component Date Value Ref Range Status WBC 01/19/2025 4.4 (L) 4.5 - 11.0 K/??L Final RBC 01/19/2025 4.89 4.50 - 5.50 M/??L Final Hemoglobin 01/19/2025 14.1 13.5 - 17.5 GM/DL Final Hematocrit 01/19/2025 42.7 41.0 - 53.0 % Final MCV 01/19/2025 87 80 - 100 fL Final MCH 01/19/2025 28.8 26.0 - 34.0 pg Final MCHC 01/19/2025 33.0 31.0 - 37.0 GM/DL Final RDW 01/19/2025 13.3 12.0 - 16.8 % Final Platelets 01/19/2025 174 140 - 440 K/CU MM Final MPV 01/19/2025 9.5 6.7 - 10.8 fL Final % Neutros 01/19/2025 63 45 - 80 % Final % Lymphs 01/19/2025 26 15 - 45 % Final % Monos 01/19/2025 8 0 - 10 % Final % Eos 01/19/2025 2 0 - 5 % Final % Baso 01/19/2025 1 0 - 3 % Final # Neutros 01/19/2025 2.73 2.00 - 8.80 K/??L Final # Lymphs 01/19/2025 1.13 0.70 - 5.50 K/??L Final # Monos 01/19/2025 0.36 0.00 - 1.70 K/??L Final # Eos 01/19/2025 0.10 0.00 - 0.80 K/??L Final # Baso 01/19/2025 0.03 0.00 - 0.20 K/??L Final Sodium 01/19/2025 139 136 - 146 meq/L Final Potassium 01/19/2025 4.5 3.5 - 5.1 meq/L Final Chloride 01/19/2025 105 98 - 108 meq/L Final CO2 01/19/2025 29 22 - 29 meq/L Final Anion Gap 01/19/2025 10 9 - 20 Final BUN 01/19/2025 24 (H) 7 - 18 mg/dL Final Creatinine 01/19/2025 1.00 0.70 - 1.30 mg/dL Final BUN/Creatinine 01/19/2025 24 (H) 8 - 20 Final Glucose 01/19/2025 79 70 - 105 mg/dL Final Calcium Ionized (mg/dL) 01/19/2025 4.77 4.36 - 5.20 mg/dL Final Protein, Total 01/19/2025 7.2 6.4 - 8.2 gm/dL Final Albumin 01/19/2025 3.4 3.4 - 5.0 g/dL Final Total Bilirubin 01/19/2025 0.4 0.2 - 1.3 mg/dL Final Bilirubin, Direct 01/19/2025 0.1 0.0 - 0.2 mg/dL Final Alkaline Phosphatase 01/19/2025 76 27 - 136 U/L Final Globulin 01/19/2025 3.8 1.5 - 4.5 g/dL Final A/G Ratio 01/19/2025 0.9 (L) 1.1 - 2.5 Final AST 01/19/2025 22 5 - 37 U/L Final [facility] has become aware of sulfasalazine and sulfapyridine drug interference in the assays ALT, AST, T4, CKMB, glucose, and ammonia. The probability of misinterpretation of results for the assays is remote and would be limited to scenarios where a patient has taken the drug and had a blood sample drawn before clearance of the drug to a level that does not interfere with laboratory testing. Venipuncture should occur prior to administration of the drug. ALT 01/19/2025 31 12 - 78 U/L Final [facility] has become aware of sulfasalazine and sulfapyridine drug interference in the assays ALT, AST, T4, CKMB, glucose, and ammonia. The probability of misinterpretation of results for the assays is remote and would be limited to scenarios where a patient has taken the drug and had a blood sample drawn before clearance of the drug to a level that does not interfere with laboratory testing. Venipuncture should occur prior to administration of the drug. No results found. Cancer Staging No matching staging information was found for the patient. Plan: His blood test today have been great. He had a normal CT of the chest. He will return in a year for the same blood test and exam. That would also represent his last screening scan since he willbe 15 years out from smoking. I have answered his questions. I made no other recommendations Signed: Electronically signed by Octavio Larsen MD 01/19/25 12:41 PM EDT Balaji Rasmussen MD documented in this encounter Plan of Treatment Upcoming Encounters Date Type Department Care Team (Late st Contact Info) Description 04/20/2025 10:45 AM EST Office Visit [facility] Electrophysiology [address] [place] [phone] Diogo Mesa MD [address] [facility] [address] [place], [place] [id number] 01/18/2026 10:45 AM EDT Office Visit [facility] [place] [address] [facility] [address] [place] [address] Octavio Larsen MD [address] [facility] [address] [place] [address] Scheduled Orders Name Type Priority Associated Diagnoses Orde r Schedule Carcinoembryonic Antigen (CEA) Lab Routine Malignant neoplasm of ascending colon (HCC) Expected: 01/18/2026, Expires: 04/18/2026 CBC with automated diff Lab Routine Malignant neoplasm of ascending colon (HCC) Expected: 01/18/2026, Expires: 04/18/2026 Comprehensive metabolic panel Lab Routine Malignant neoplasm of ascending colon (HCC) Expected: 01/18/2026 (Approximate), Expires: 04/18/2026 documented as of this encounter Procedures Procedure Name Priority Date/Time Associated Diagnosis Comments CBC W/ AUTO DIFF Routine 01/19/2025 10:2 5 AM EDT Malignant neoplasm of ascending colon (HCC) ONOCOLOGY CHEMISTRY PANEL Routine 01/19/2025 10:25 AM EDT Malignant neoplasm of ascending colon (HCC) CARCINOEMBRYONIC ANTIGEN (CEA) Routine 01/19/2025 10:25 AM EDT Malignant neoplasm of ascending colon (HCC) HEPATIC FUNCTION PANEL Routine 09/16/202 5 10:25 AM EDT Malignant neoplasm of ascending colon (HCC) documented in this encounter Results * (ABNORMAL) Hepatic function panel (01/19/2025 10:25 AM EDT) Protein, Total 7.2 6.4 - 8.2 gm/dL 01/19/2025 11:40 AM [facility] Albumin 3.4 3.4 - 5.0 g/dL 01/19/2025 11:40 AM [facility] Total Bilirubin 0.4 0.2 - 1.3 mg/dL 01/19/2025 11:40 AM [facility] Bilirubin, Direct 0.1 0.0 - 0.2 mg/dL 01/19/2025 11:40 AM [facility] Alkaline Phosphatase 76 27 - 136 U/L 01/19/2025 11:40 AM [facility] Globulin 3.8 1.5 - 4.5 g/dL 01/19/2025 11:40 AM [facility] A/G Ratio 0.9(L) 1.1 - 2.5 01/19/2025 11:40 AM [facility] AST 22 5 - 37 U/L 01/19/2025 11:40 AM [facility] Comment:[employer] has become aware of sulfasalazine and sulfapyridine drug interference in the assays ALT, AST, T4, CKMB, glucose, and ammonia. The probability of misinterpretation of results for the assays is remote and would be limited to scenarios where a patient has taken the drug and had a blood sample drawn before clearance of the drug to a level that does not interfere with laboratory testing. Venipuncture should occur prior to administration of the drug. ALT 31 12 - 78 U/L 01/19/2025 11:40 AM [facility] Comment:[employer] has become aware of sulfasalazine and sulfapyridine drug interference in the assays ALT, AST, T4, CKMB, glucose, and ammonia. The probability of misinterpretation of results for the assays is remote and would be limited to scenarios where a patient has taken the drug and had a blood sample drawn before clearance of the drug to a level that does not interfere with laboratory testing. Venipuncture should occur prior to administration of the drug. Blood Venipuncture / Unknown 01/19/2025 10:25 AM EDT 01/19/2025 10:37 AM EDT us Octavio Larsen MD LAB BLOOD ORDERABLES Final Res ult [facility] [address] [phone] * (ABNORMAL) Oncology Chemistry Panel (01/19/2025 10:25 AM EDT) Sodium 139 136 - 146 meq/L 01/19/2025 10:42 AM EDT [facility] Potassium 4.5 3.5 - 5.1 meq/L 01/19/2025 10:42 AM EDT [facility] Chloride 105 98 - 108 meq/L 01/19/2025 10:42 AM EDT [facility] CO2 29 22 - 29 meq/L 01/19/2025 10:42 AM EDT [facility] Anion Gap 10 9 - 20 01/19/2025 10:42 AM EDT [facility] BUN 24(H) 7 - 18 mg/dL 01/19/2025 10:42 AM EDT [facility] Creatinine 1.00 0.70 - 1.30 mg/dL 01/19/2025 10:42 AM EDT [facility] BUN/Creatinine 24(H) 8 - 20 01/19/2025 10:42 AM EDT [facility] Glucose 79 70 - 105 mg/dL 01/19/2025 10:42 AM EDT [facility] Calcium Ionized (mg/dL) 4.77 4.36 - 5.20 mg/dL 01/19/2025 10:42 AM EDT [facility] Blood Venipuncture / Unknown 01/19/2025 10:25 AM EDT 01/19/2025 10:37 AM EDT us Octavio Larsen MD LAB BLOOD ORDERABLES Final Res ult [facility] [address] [place] [address], [facility] [phone] * (ABNORMAL) CBC with automated diff (01/19/2025 10:25 AM EDT) WBC 4.4(L) 4.5 - 11.0 K/ L 01/19/2025 10:42 AM EDT [facility] RBC 4.89 4.50 - 5.50 M/ L 01/19/2025 10:42 AM EDT [facility] Hemoglobin 14.1 13.5 - 17.5 GM/DL 01/19/2025 10:42 AM EDT [facility] Hematocrit 42.7 41.0 - 53.0 % 01/19/2025 10:42 AM EDT [facility] MCV 87 80 - 100 fL 01/19/2025 10:42 AM EDT [facility] MCH 28.8 26.0 - 34.0 pg 01/19/2025 10:42 AM EDT [facility] MCHC 33.0 31.0 - 37.0 GM/DL 01/19/2025 10:42 AM EDT [facility] RDW 13.3 12.0 - 16.8 % 01/19/2025 10:42 AM EDT [facility] Platelets 174 140 - 440 K/CU MM 01/19/2025 10:42 AM EDT [facility] MPV 9.5 6.7 - 10.8 fL 01/19/2025 10:42 AM EDT [facility] % Neutros 63 45 - 80 % 01/19/2025 10:42 AM EDT [facility] % Lymphs 26 15 - 45 % 01/19/2025 10:42 AM EDT [facility] % Monos 8 0 - 10 % 01/19/2025 10:42 AM EDT [facility] % Eos 2 0 - 5 % 01/19/2025 10:42 AM EDT [facility] % Baso 1 0 - 3 % 01/19/2025 10:42 AM EDT [facility] # Neutros 2.73 2.00 - 8.80 K/ L 01/19/2025 10:42 AM EDT [facility] # Lymphs 1.13 0.70 - 5.50 K/ L 01/19/2025 10:42 AM EDT [facility] # Monos 0.36 0.00 - 1.70 K/ L 01/19/2025 10:42 AM EDT [facility] # Eos 0.10 0.00 - 0.80 K/ L 01/19/2025 10:42 AM EDT [facility] # Baso 0.03 0.00 - 0.20 K/ L 01/19/2025 10:42 AM EDT [facility] Blood Venipuncture / Unknown 01/19/2025 10:25 AM EDT 01/19/2025 10:37 AM EDT Narrative [facility] - 01/19/2025 10:42 AM EDT When CBC w/ Auto Diff is ordered the lab will add a Manual Differential as a quality check at no additional charge if: Lymphocytes greater than seventy five percent with normal or increased WBC Monocytes greater than Fifteen percent Basophil greater than four percent Bands >10% or several immature myeloids are seen on scan Blast? Flag noted Atypical Lymph flag noted us Octavio Larsen MD LAB BLOOD ORDERABLES Final Res ult [facility] [address] [place] [address], [facility] [phone] * Carcinoembryonic Antigen (CEA) (01/19/2025 10:25 AM EDT) CEA, SERUM <1.73 0.00 - 5.00 ng/mL 01/19/2025 3:18 PM EDT [facility] Comment:Champagne Alinity i mendoza miluminescent immunoassay was used to obtain results. Results determined by assays using different manufacturers or methods may not be comparable. Blood Venipuncture / Unknown 01/19/2025 10:25 AM EDT 01/19/2025 10:37 AM EDT us Octavio Larsen MD LAB BLOOD ORDERABLES Final Res ult [facility] [address] [place], [place] [address] [phone] documented in this encounter Visit Diagnoses Diagnosis Malignant neoplasm of ascending colon (HCC) Malignant neoplasm of ascending colon documented in this encounter Care Teams Clinical Laboratory Manager Relationship Specialty Start Date End Date Balaji Rasmussen MD [address] [place] [address] PCP - General Family Medicine 05/10/22 documented as of this encounter
--- OUTSIDE RECORDS SUMMARY | 2025-03-10 10:26 | XMS_ITS | Encounter Summary ---
Author Organization [employer] ([place], [place], [place], [place], [place]) Address [address] [place] [address] Care Team Providers Care Fuel Yard Operator Name Role Phone Balaji Rasmussen MD Primary Care Provider [phone] Encounter Details Date Type Department Care Team (Late st Contact Info) Description 11/30/2020 Transcribed Document [facility] [place] [address] ProviderMahi MD [address] [place] [address] Social History Tobacco Use Types Packs/Day [...] Age: 60 Years Sex: Male : 1960 Supervisor Nuclear Medicine: Diogo Mesa MD Indication: 60 yo essentially [...] position, transseptal puncture was achieved using the Ricebook system. Successful puncture was verified by ultrasound [...] Description 04/20/2025 10:45 AM EST Office Visit [facility] Electrophysiology [address] [place] [address] Diogo Mesa MD [address] [facility] [address] [place], [place] [id number] 01/18/2026 10:45 AM EDT Office Visit [facility] [place] [address] [facility] [address] [place] [address] Octavio Larsen MD [address] [facility] [address] [place] [phone] documented as of this encounter Visit Diagnoses Not on filedocumented in this encounter Care Teams Fuel Yard Operator Relationship Specialty Start Date End Date Balaji Rasmussen MD [address] [place] [address] PCP - General Family Medicine 05/10/22 documented as of this encounter
--- OUTSIDE RECORDS SUMMARY | 2025-03-10 10:26 | XMS_ITS | Encounter Summary ---
Author Organization [employer] ([place], [place], [place], [place], [place]) Address [address] [place] [address] Care Team Providers Care Block Machine Operator Name Role Phone Balaji Rasmussen MD Primary Care Provider +1 -[phone] Encounter Details Date Type Department Care Team (Late st Contact Info) Description 11/30/2020 Transcribed Document [facility] [place] Family Medicine [address] [place] [address] ProviderMahi MD [address] [place] [address] 216261 Social History Tobacco Use Types Packs/Day Years [...] Ministry Provided to : Patient, Family/Significant other Latter Day Preference : Congregational ([employer]) OCTAVIO ZAYAS - 11/30/2020 7:43 EDT Spiritual Assessment Spiritual Assessment Comment/Summary Points : Provided pre-procedure visit and prayer with patient and . Spirital Assessment Comment/Summary Report : SPIRITUAL ASSESSMENT COMMENT/SUMMARY No qualifying data available. OCTAVIO ZAYAS P - 11/30/2020 7:43 EDT Interventions Emotional Support : Empathic/Engaged listening, Family/Significant other supported, Feelings expressed Spiritual and Latter Day : Prayer shared, Spiritual/Latter Day support provided OCTAVIO ZAYAS P - 11/30/2020 7:43 EDT Electronically signed by [facility], [facility] Conversion Form Setter Steel Forms Cerner at 08/26/2022 1:49 PM CDT documented in this encounter Plan of Treatment Upcoming Encounters Date Type Department Care Team (Late st Contact Info) Description 04/20/2025 10:45 AM EST Office Visit [facility] Electrophysiology [address] [place] [phone] [place] [address] [place] [address] [address] [place] [address] 01/18/2026 10:45 AM EDT Office Visit [facility] - Amina [facility] [address] [place] [address] Octavio Larsen MD [address] [facility] [address] [place] [address] documented as of this encounter Visit Diagnoses Not on filedocumented in this encounter Care Teams Block Machine Operator Relationship Specialty Start Date End Date Balaji Rasmussen MD [address] [place] [address] PCP - General Family Medicine 05/10/22 documented as of this encounter
--- OUTSIDE RECORDS SUMMARY | 2025-03-10 10:26 | XMS_ITS | Encounter Summary ---
Author Organization [employer] ([place], [place], [place], [place], [place]) Address [address] [place] [address] Care Team Providers Care Shearer Screen Measurer And Trimmer Name Role Phone Balaji Rasmussen MD Primary Care Provider +1 -[phone] Reason for Visit * Reason Comments Medication Refill Encounter Details Date Type Department Care Team (Late st Contact Info) Description 05/24/2023 Refill [facility] Electrophysiology [address] [place] [phone] [place] [address] [place] [address] [address] [place] [address] Paroxysmal atrial fibrillation (HCC) Social History Tobacco [...] Date Billy rded Speak language other than Libyan at home Not on file 05/17/2023 Want [...] Description 04/20/2025 10:45 AM EST Office Visit [facility] Electrophysiology [address] [place] [phone] Diogo Mesa MD [address] [facility] [address] [place] [address] 01/18/2026 10:45 AM EDT Office Visit [facility] - [address] [place] [address] Octavio Larsen MD [address] [facility] [address] [place] [address] documented as of this encounter Visit Diagnoses Diagnosis Paroxysmal atrial fibrillation (HCC) Atrial fibrillation documented in this encounter Care Teams Shearer Screen Measurer And Trimmer Relationship Specialty Start Date End Date Balaji Rasmussen MD [address] [place] [address] PCP - General Family Medicine 05/10/22 documented as of this encounter
--- OUTSIDE RECORDS SUMMARY | 2025-03-10 10:26 | XMS_ITS | Encounter Summary ---
Author Organization [employer] ([place], [place], [place], [place], [place]) Address [address] [place] [address] Care Team Providers Care Credit Risk Management Director Name Role Phone Balaji Rasmussen MD Primary Care Provider +1 [phone] Encounter Details Date Type Department Care Team (Late st Contact Info) Description 11/30/2020 Transcribed Document [facility] [place] Family Medicine [address] [place] [address] ProviderMahi MD [address] [place] [address] Social History Tobacco Use Types Packs/Day [...] MIKE LLOYD RPh - 11/30/2020 16:39 EDT Electronically signed by [facility] [facility] Conversion Hoop Driving Machine Operator Helper Cerner at 08/26/2022 1:52 PM CDT documented in this encounter Plan of Treatment Upcoming Encounters Date Type Department Care Team (Late st Contact Info) Description 04/20/2025 10:45 AM EST Office Visit [facility] Electrophysiology [address] [place] [phone] Diogo Mesa MD [address] [facility] [address] [place] [address] 01/18/2026 10:45 AM EDT Office Visit [facility] - [facility] [address] [place] [address] [address] [place] [address] Octavio Larsen MD [address] [facility] [address] [place] [address] documented as of this encounter Visit Diagnoses Not on filedocumented in this encounter Care Teams Credit Risk Management Director Relationship Specialty Start Date End Date Balaji Rasmussen MD [address] [place] [address] PCP - General Family Medicine 05/10/22 documented as of this encounter
--- OUTSIDE RECORDS SUMMARY | 2025-03-10 10:26 | XMS_ITS | Encounter Summary ---
Author Organization [employer] ([place], [place], [place], [place], [place]) Address [address] [place] [address] Care Team Providers Care Lithographic Photographer Apprentice Name Role Phone Balaji Rasmussen MD Primary Care Provider +1 [phone] Encounter Details Date Type Department Care Team (Latest Contact Info) Description 01/19/2025 Travel Social History Tobacco Use Types Packs/Day Years [...] Date Billy rded Speak language other than Israeli at home Not on file 05/17/2023 Want [...] Description 04/20/2025 10:45 AM EST Office Visit [facility] Electrophysiology [address] [place] [phone] Diogo Mesa MD [address] [facility] [address] [place] [id number] 01/18/2026 10:45 AM EDT Office Visit [facility] - [address] [place] [address] Octavio Larsen MD [address] [facility] [address] [place] [address] documented as of this encounter Visit Diagnoses Not on filedocumented in this encounter Care Teams Lithographic Photographer Apprentice Relationship Specialty Start Date End Date Balaji Rasmussen MD [address] [place] [address] PCP - General Family Medicine 05/10/22 documented as of this encounter
--- OUTSIDE RECORDS SUMMARY | 2025-03-10 10:26 | XMS_ITS | Encounter Summary ---
Author Organization [employer] ([place], [place], [place], [place], [place]) Address [address] [place] [address] Care Team Providers Care Platform Power Technician Name Role Phone Balaji Rasmussen MD Primary Care Provider [phone] [phone] Encounter Details Date Type Department Care Team (Late st Contact Info) Description 11/30/2020 Transcribed Document [facility] [place] [facility] [place] [address] ProviderMahi MD [address] [place] [address] Social History Tobacco Use Types Packs/Day [...] Source : Measured Height Entry Format : Dukes Height, Feet : 6 ft(Converted to: 183 cm, 72 Inch) Height, Inches : 6 Inch(Converted to: 0 ft 6 Inch, 15.24 cm) Clinical Height : 198.12 cm Weight Source : Standing scale Weight Entry Format : Dukes Clinical Dosing Weight : 105 kg Weight, Pounds : 231 lb Body Surface Area (BSA) : 2.4 m2 Body Mass Index : 26.8 kg/m2 (HI) Alton Body Weight : 90 kg VICENTA MELLO [...] VICENTA MELLO RN - 11/30/2020 6:21 EDT [place] Suicide Severity Rating Scale (C-SSRS) CSSRS Past [...] Any Spiritual/Cultural Needs or Requests : Yes Buddhism Preference : Evangelical ([employer]) VICENTA MELLO RN - [...] for a fib ablation Primary Language : Martiniquais Preferred Communication Mode : Verbal Communication Barrier : None Information Systems Manager Needed : No Objects to Sharing Info [...] Scale Risk Level : 25-45 Medium Risk Mission Fall Interventions : Adequate lighting, Bed in [...] rendition version of the form. Ciaran Coma Nem[place]olin Best Motor Response : Obey commands Nemacolin Best Verbal Response : Oriented Nem[place]olin Eye Opening Response : Spontaneous Ciaran Coma Score : 15 VICENTA MELLO RN - 11/30/2020 6:21 EDT documented in this encounter Plan of Treatment Upcoming Encounters Date Type Department Care Team (Late st Contact Info) Description 04/20/2025 10:45 AM EST Office Visit [facility] Electrophysiology [address] [place] [address] Diogo Mesa MD [address] [facility] [address] [place], [place] [address] 01/18/2026 10:45 AM EDT Office Visit [facility] - [address] [facility] [address] [place] [address] Octavio Larsen MD [address] [facility] [address] [place] [address] documented as of this encounter Visit Diagnoses Not on filedocumented in this encounter Care Teams Platform Power Technician Relationship Specialty Start Date End Date Balaji Rasmussen MD [address] [place] [address] PCP - General Family Medicine 05/10/22 documented as of this encounter
--- OUTSIDE RECORDS SUMMARY | 2025-03-10 10:26 | XMS_ITS | Encounter Summary ---
Author Organization [employer] ([place], [place], [place], [place], [place]) Address [address] [place] [address] Care Team Providers Care Antisubmarine Weapons Officer Name Role Phone Balaji Rasmussen MD Primary Care Provider +1 [phone] Encounter Details Date Type Department Care Team (Late st Contact Info) Description 11/30/2020 Transcribed Document [facility] [place] [address] [place] [address] ProviderMahi MD [address] [place], [place] [address] Social History Tobacco Use Types Packs/Day Years [...] output in [facility]. Belongings with pt. CLINT Bryant, VICENTA Roberto RN - 11/30/2020 16:34 EDT Electronically signed by [facility], [facility] Conversion Global Compensation Analyst Cerner at 08/26/2022 1:45 PM CDT documented in this encounter Plan of Treatment Upcoming Encounters Date Type Department Care Team (Late st Contact Info) Description 04/20/2025 10:45 AM EST Office Visit [facility] Electrophysiology [address] [place] [phone] Diogo Mesa MD [address] [place] [address] [address] [place] [address] 01/18/2026 10:45 AM EDT Office Visit [facility] - Amina [facility] AMINA [facility] [address] [place] [address] Octavio Larsen MD [address] [place] [address] [address] [place] [address] documented as of this encounter Visit Diagnoses Not on filedocumented in this encounter Care Teams Antisubmarine Weapons Officer Relationship Specialty Start Date End Date Balaji Rasmussen MD [address] [place] [address] PCP - General Family Medicine 05/10/22 documented as of this encounter
--- OUTSIDE RECORDS SUMMARY | 2025-03-10 10:27 | XMS_ITS | Encounter Summary ---
Author Organization [employer] ([place], [place], [place], [place], [place]) Address [address] [place] [address] Care Team Providers Care Administrative Clerk Name Role Phone Balaji Rasmussen MD Primary Care Provider +1 [phone] Encounter Details Date Type Department Care Team (Late st Contact Info) Description 10/23/2018 Transcribed Document [facility] [place] [address] [place] [address] ProviderMahi MD [address] [place] [address] Social History Tobacco Use Types Packs/Day Years Used Date Smoking Tobacco: Never Assessed Sex and Gender Information Value Date Recorded Sex Assigned at Not on file Legal Sex Male 5:42 PM CDT Gender Identity Not on file Sexual Orientation Not on file documented as of this encounter Miscellaneous Notes * Cerner Conversion Note - Mahi Hamm MD - 10/23/2018 10:15 AM CDT [facility] [place] [address] DANA NELLY Felisa :1960 Visit Time:10/22/2018 [...] EDT Comments Appointment has been made Where: [facility] [place] [address]- Business (1) Medications What How Much When Instructions Next Dose apixaban (Eliquis 5 mg oral tablet) 1 Tablet(s) Oral Interval Every 12 Hours Duration: 30 Day(s) Refills: 3 Pickup at [facility] 591 pantoprazole (Protonix 40 mg oral delayed release tablet) 1 Tablet(s) Oral Every Day Duration: 30 Day(s) Pickup at [facility] 591 sucralfate (Carafate 1 g/ 10 mL oral suspension) 10 Milliliter(s) Oral Before Meals Duration: 14 Day(s) Pickup at [facility] 591 flecainide 50 Milligram(s) Oral Every 12 hours magnesium oxide 400 Milligram(s) Oral Every Day metoprolol (metoprolol tartrate) 12.5 Milligram(s) Oral Two Times A Day multivitamin (One-A-Day Men's Health Formula oral tablet) 1 Tablet(s) Oral Every Day omega-3 polyunsaturated fatty acids (Fish Oil) 1,000 Milligram(s) Oral Every Day ubiquinone (Co Q-10) 1,000 Milligram(s) Oral Saturday Pharmacy Information [facility]: [address] [phone] Take your medications faithfully. Do NOT skip [...] Follow these instructions at home: ??? Take adyn-kwn-sgeowlv and prescription medicines only as told by [...] 01/29/2009 Document Revised: 09/27/2016 Document Reviewed: 08/17/2015 [employer] Interactive Patient Education ?? 2019 [employer] Cardiac Ablation Cardiac ablation is a [...] 12/23/2013 Document Revised: 03/11/2017 Document Reviewed: 03/11/2017 [employer] Interactive Patient Education ?? 2019 [employer]. Emergency Awareness and Preventative Care STROKE is [...] Assistance with quitting is available by contacting 5-801-DBVXCorridor PharmaceuticalsNOW. This is a free resource providing counseling, [...] Be sure to sign up for the [employer] patient portal, which gives you 26/11 access to your medical information ??? including these discharge instructions ??? using your computer, smartphone, or tablet. Just go to [employer] to get started. Questions? Call . Test [...] range between ( 0.0 and 7.0 ) Amador #: 0.62 K/uL -- Normal range between ( 0.16 and 1.00 ) Eos #: 0.03 x10(3)/uL -- Normal range between ( 0.00 and 0.80 ) Amador %: 11.0 % -- Normal range between [...] was given the opportunity to ask questions. Patient/Software Development Engineer Name: Patient/Software Development Engineer Signature: Relationship to Patient: Clinician/Hospital Software Development Engineer Signature: Date: documented in this encounter Plan of Treatment Upcoming Encounters Date Type Department Care Team (Late st Contact Info) Description 04/20/2025 10:45 AM EST Office Visit [facility] Electrophysiology [address] [place] [address] Diogo Mesa MD [address] [facility] [address] [place], [place] [id number] 01/18/2026 10:45 AM EDT Office Visit [facility] - [place] [address] [place] [phone] Octavio Larsen MD [address] [facility] [address] [place] [address] documented as of this encounter Visit Diagnoses Not on filedocumented in this encounter Care Teams Administrative Clerk Relationship Specialty Start Date End Date Balaji Rasmussen MD [address] [place] [address] PCP - General Family Medicine 05/10/22 documented as of this encounter
--- OUTSIDE RECORDS SUMMARY | 2025-03-10 10:27 | XMS_ITS | Encounter Summary ---
Author Organization [employer] ([place], [place], [place], [place], [place]) Address [address] [place] [address] Care Team Providers Care Clinical Support Specialist Name Role Phone Balaji Rasmussen MD Primary Care Provider +1 -[phone] Encounter Details Date Type Department Care Team (Late st Contact Info) Description 06/10/2018 Transcribed Document [facility] Cardiology [address] [place] [phone] Tj Tenorio MD 1401 [facility] [address] [place] [address] Social History Tobacco Use Types Packs/Day Years [...] Description 04/20/2025 10:45 AM EST Office Visit [facility] Electrophysiology [address] [place] [phone] [place] [address] [place] [address] [address] [place] [address] 01/18/2026 10:45 AM EDT Office Visit [facility] - [place] [address] [facility] [address] [place] [address] Octavio Larsen MD [address] [place] [address] documented as of this encounter Visit Diagnoses Not on filedocumented in this encounter Care Teams Clinical Support Specialist Relationship Specialty Start Date End Date Balaji Rasmussen MD [address] [place], [place] [address] PCP - General Family Medicine 05/10/22 documented as of this encounter
--- OUTSIDE RECORDS SUMMARY | 2025-03-10 10:27 | XMS_ITS | Encounter Summary ---
Author Organization [employer] ([place], [place], [place], [place], [place]) Address [address] [place] [address] Care Team Providers Care Certified Master Safecracker Name Role Phone Balaji Rasmussen MD Primary Care Provider +1 -[phone] Encounter Details Date Type Department Care Team (Late st Contact Info) Description 10/22/2018 Transcribed Document [facility] [place] Family Medicine [address] [place] [address] ProviderMahi MD [address] [place] [address] Social History Tobacco Use Types Packs/Day Years [...] 3D electroanatomic mapping. 5. Catheter ablation. ATTENDING HUMAN RELATIONS MANAGER: Shavon Ricci MD, [facility] PROCEDURE INDICATIONS: Atrial fibrillation, refractory and/or intolerant [...] vein. 6. Intracardiac echocardiography: A phased array 9-Ivorian ViewFlex ICE catheter was advanced into the [...] CATHETER PROPERTIES: 1. Left femoral vein: An 8-Ivorian short sheath,Biosense Yeh deflectable duodecapolar catheter, TA and coronary sinus. 2. Left femoral vein: A 9-Ivorian long sheath, mid right atrium, Biosense Yeh, Sound Star ICE catheter. 3. Right femoral vein: An 8-Ivorian long sheath (SL0), left atrium, exchanged with 15-Ivorian FlexCath steerable sheath, then exchanged with 16 Fr short sheath and SL0(open irrigation ST SF F curve ablation catheter)to map/ablation in LA then for CTI ablation. 4. Left femoral vein: A 6-Ivorian short sheath,Biosense Yeh quadripolar deflectable catheter, SVC [...] msec, AH 100 msec, HV 48 msec, WA 185 msec, QRS 93 msec, QT 464 [...] to RSPV, and flutter terminated while completing toll line repairer to RSPV. Line was revised and bidirectional [...] in the care of your pleasant patient. Electronically signed by [facility], [facility] Conversion Binman Cerner at 08/21/2022 2:55 PM CDT documented in this encounter Plan of Treatment Upcoming Encounters Date Type Department Care Team (Late st Contact Info) Description 04/20/2025 10:45 AM EST Office Visit [facility] Electrophysiology [address] [place] [phone] Diogo Mesa MD 1401 [facility] [address] [place] [address] 01/18/2026 10:45 AM EDT Office Visit [facility] - [place] [facility] [address] [place] [phone] Octavio Larsen MD [address] [facility] [address] [place] [address] documented as of this encounter Visit Diagnoses Not on filedocumented in this encounter Care Teams Certified Master Safecracker Relationship Specialty Start Date End Date Balaji Rasmussen MD [address] [place] [address] PCP - General Family Medicine 05/10/22 documented as of this encounter
--- OUTSIDE RECORDS SUMMARY | 2025-03-10 10:27 | XMS_ITS | Encounter Summary ---
Author Organization [employer] ([place], [place], [place], [place], [place]) Address [address] [place] [address] Care Team Providers Care Technical Document Writer Name Role Phone Balaji Rasmussen MD Primary Care Provider +1 -[phone] Encounter Details Date Type Department Care Team (Late st Contact Info) Description 12/01/2020 Transcribed Document [facility] [place] Family [facility] [address] ProviderMahi MD [address] [place] [address] Social History Tobacco Use Types Packs/Day [...] EDT Performed On: 12/01/2020 10:50 EDT by OZZIE ZHAO CNA Stroke/Warfarin Instructions Stroke/TIA Discharge Ins : N/A Warfarin Discharge Ins : N/A OZZIE ZHAO CNA - 12/01/2020 10:50 EDT documented in this encounter Plan of Treatment Upcoming Encounters Date Type Department Care Team (Late st Contact Info) Description 04/20/2025 10:45 AM EST Office Visit [facility] Electrophysiology [address] [place] [address] Diogo Mesa MD 1401 [facility] [address] [place], [place] [address] 01/18/2026 10:45 AM EDT [facility] [address] [facility] [address] [place] [address] Octavio Larsen MD 3470 [facility] [address] [place] [address] documented as of this encounter Visit Diagnoses Not on filedocumented in this encounter Care Teams Technical Document Writer Relationship Specialty Start Date End Date Balaji Rasmussen MD [address] [place] [address] PCP - General Family Medicine 05/10/22 documented as of this encounter
--- OUTSIDE RECORDS SUMMARY | 2025-03-10 10:27 | XMS_ITS | Encounter Summary ---
Author Organization [employer] ([place], [place], [place], [place], [place]) Address [address] [place] [address] Care Team Providers Care Supply Chain Manager Name Role Phone Balaji Rasmussen MD Primary Care Provider +1 -[phone] Encounter Details Date Type Department Care Team (Late st Contact Info) Description 12/01/2020 Transcribed Document [facility] [place] [facility] [place] [address] ProviderMahi MD [address] [place] [id number] Social History Tobacco Use Types Packs/Day Years [...] Performed On: 12/01/2020 8:30 EDT by MAC FALCON RN-Cafeteria Assistant Final Discharge Planning Discharge Arrangements : Patient [...] : Yes Discharge To Care Management : Home/Residential/Nursing Home or Self Care -01 MAC FALCON RN-Cafeteria Assistant - 12/01/2020 8:30 EDT Electronically signed by [facility] Conversion Service Line Bus Cleaner Cerner at 08/26/2022 1:46 PM CDT documented in this encounter Plan of Treatment Upcoming Encounters Date Type Department Care Team (Late st Contact Info) Description 04/20/2025 10:45 AM EST Office Visit [facility] Electrophysiology [address] [place] [phone] Diogo Mesa MD [address] [place] [address] [address] [place] [address] 01/18/2026 10:45 AM EDT Office Visit [facility] - [facility] [address]70 [facility] [address] [place] [address] Octavio Larsen MD 3470 [facility] [address] [place] [address] documented as of this encounter Visit Diagnoses Not on filedocumented in this encounter Care Teams Supply Chain Manager Relationship Specialty Start Date End Date Balaji Rasmussen MD [address] [place] [address] PCP - General Family Medicine 05/10/22 documented as of this encounter
--- OUTSIDE RECORDS SUMMARY | 2025-03-10 10:27 | XMS_ITS | Encounter Summary ---
Author Organization [facility] ([place], [place], [place], [place], [place]) Address [address] [place] [address] Care Team Providers Care Shot Coat Tender Name Role Phone Balaji Rasmussen MD Primary Care Provider [phone] Encounter Details Date Type Department Care Team (Late st Contact Info) Description 10/23/2018 Transcribed Document [facility] [place] [address] ProviderMahi MD [address] [place] [id number] Social History Tobacco Use Types Packs/Day Years [...] Description 04/20/2025 10:45 AM EST Office Visit [facility] Electrophysiology [address] [place] [address] Diogo Mesa MD [address] [facility] [address] [place] [address] 01/18/2026 10:45 AM EDT Office Visit [facility] [place] [address] [facility] [address] [facility] [address] [place] [phone] Octavio Larsen MD [address] [facility] [address] [place] [address] documented as of this encounter Visit Diagnoses Not on filedocumented in this encounter Care Teams Shot Coat Tender Relationship Specialty Start Date End Date Balaji Rasmussen MD [address] [place] [address] PCP - General Family Medicine 05/10/22 documented as of this encounter
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
--- OUTSIDE RECORDS SUMMARY | 2025-03-10 10:27 | XMS_ITS | Encounter Summary ---
Author Organization [facility] ([place], [place], [place], [place], [place]) Address [address] [place] [address] Care Team Providers Care Operations Project Manager Name Role Phone Balaji Rasmussen MD Primary Care Provider [phone] Encounter Details Date Type Department Care Team (Late st Contact Info) Description 11/30/2020 Transcribed Document [facility] [place] [address] [place] [address] ProviderMahi MD [address] [place] [address] Social History Tobacco Use Types Packs/Day Years [...] EDT Pain Scale Intensity : 1 Michelle Dumont RN - 11/30/2020 21:19 EDT Image 4 - Images currently included in the form version of this document have not been included in the text rendition version of the form. documented in this encounter Plan of Treatment Upcoming Encounters Date Type Department Care Team (Late st Contact Info) Description 04/20/2025 10:45 AM EST Office Visit [facility] Electrophysiology [address] [place] [phone] Diogo Meas MD [address] [place] [address] [address] [place], [place] [id number] 01/18/2026 10:45 AM EDT Office Visit [facility] - [place] [phone] [facility] [address] [place] [address] Octavio Larsen MD [address] [facility] [address] [place] [address] documented as of this encounter Visit Diagnoses Not on filedocumented in this encounter Care Teams Operations Project Manager Relationship Specialty Start Date End Date Balaji Rasmussen MD [address] [place] [address] PCP - General Family Medicine 05/10/22 documented as of this encounter
--- OUTSIDE RECORDS SUMMARY | 2025-03-10 10:27 | XMS_ITS | Encounter Summary ---
Author Organization [facility] ([place], [place], [place], [place], [place]) Address [address] [place] [address] Care Team Providers Care Automatic Shirring Machine Operator Name Role Phone Balaji Rasmussen MD Primary Care Provider [phone] Encounter Details Date Type Department Care Team (Late st Contact Info) Description 12/01/2020 Transcribed Document [facility] [address] [place] [address] ProviderMahi MD [address] [place] [address] Social History Tobacco Use Types Packs/Day Years Used Date Smoking Tobacco: Never Assessed Sex and Gender Information Value Date Recorded Sex Assigned at Not on file Legal Sex Male 5:42 PM CDT Gender Identity Not on file Sexual Orientation Not on file documented as of this encounter Miscellaneous Notes * [employer]ner Conversion Note - Mahi ProviderMD - 12/01/2020 10:52 AM CDT [facility] [place] [address] LAITH CORTEZ Felisa :1960 Visit Time:11/30/2020 Your Visit Summary Your Care Team Admitting Physician - NELDA MESA MD-CAR Attending Physician - NELDA MESA MD-CAR Primary [...] AM EDT Comments appointment is made Where: [address] [place] [address] [address] [facility] (1) Medications What How Much When Instructions Next Dose pantoprazole (Protonix 40 mg oral delayed release tablet) 1 Tablet(s) Oral Every Day Please milk pickup driver at your pharmacy apixaban (Eliquis 5 mg [...] these instructions at home: Medicines ??? Take dizg-gsl-csaelrf and prescription medicines only as told by [...] provider. Document Revised: 10/14/2019 Document Reviewed: 10/14/2019 [employer] Patient Education ?? 2020 [employer] Groin Site Care Refer to this [...] Document Reviewed: 05/25/2011 ExitCare?? Patient Information ??2013 [employer]. Cardiac Ablation, Care After This sheet gives [...] and water are not available, use hand manager stylist. ? Change your dressing as told by [...] safe for you. General instructions ??? Take shda-kap-lgemxwc and prescription medicines only as told by [...] provider. Document Revised: 04/04/2018 Document Reviewed: 08/01/2017 [employer] Patient Education ?? 2020 [employer] Cardiac Ablation Cardiac ablation is a [...] provider. Document Revised: 04/04/2018 Document Reviewed: 03/11/2017 [employer] Patient Education ?? 2020 [employer]. Atrial Fibrillation Atrial fibrillation is a type [...] these instructions at home: Medicines ??? Take fkug-ogu-vhrkwxq and prescription medicines only as told by [...] provider. Document Revised: 10/14/2019 Document Reviewed: 10/14/2019 [employer] Patient Education ?? 2020 [employer] Aspirin and Your Heart Aspirin is [...] The two forms of aspirin are: ? Unh-ramrtuo-ggzhup.This type of aspirin does not have a coating and is absorbed quickly. This type of aspirin also comes in a chewable form. ? Enteric-coated. This type of aspirin has a coating that releases the medicine very slowly. Enteric-coated aspirin might cause less stomach upset than mrj-zzcbqxc-fdcbht aspirin. This type of aspirin should not [...] provider. Document Revised: 02/20/2018 Document Reviewed: 02/20/2018 [employer] Patient Education ?? 2020 [employer] Cardiac Ablation, Care After This sheet [...] and water are not available, use hand manager stylist. ? Change your dressing as told by [...] safe for you. General instructions ??? Take cisn-ukn-hbosbbm and prescription medicines only as told by [...] Reviewed: 08/01/2017 Elsevier Patient Education ?? 2020 [employer] Heart-Healthy Eating Plan Heart-healthy meal planning [...] Fats and oils Meat fat, or shortening. [place] butter, hydrogenated oils, palm oil, coconut oil, [...] provider. Document Revised: 06/26/2018 Document Reviewed: 05/30/2018 [employer] Patient Education ?? 2020 [employer]. pantoprazole (oral/injection) (villanueva TOE pra zole) Protonix [...] a broken bone while taking this medicine moth exterminator or more than once per day. What [...] may report side effects to FDA at 7-848-JQA-8241. What other drugs will affect pantoprazole? Tell your doctor about all your other medicines, especially: ?? digoxin; ?? methotrexate; or ?? a diuretic or 'water pill.' This list is not complete. Other drugs may affect pantoprazole, including prescription and ylob-bwe-wscaiug medicines, vitamins, and herbal products. Not all [...] to ensure that the information provided by [employer]. ('[employer]') is accurate, up-to-date, and complete, but no guarantee is made to that effect. Drug information contained herein may be time sensitive. [employer] information has been compiled for use by healthcare practitioners and consumers in the [place] and therefore [employer] does not warrant that uses outside of the [place] are appropriate, unless specifically indicated otherwise. [employer] drug information does not endorse drugs, diagnose patients or recommend therapy. [employer] drug information is an informational resource designed [...] effective or appropriate for any given patient. [employer] does not assume any responsibility for any aspect of healthcare administered with the aid of information [employer] provides. The information contained herein is not intended to cover all possible uses, directions, precautions, warnings, drug interactions, allergic reactions, or adverse effects. If you have questions about the drugs you are taking, check with your doctor, nurse or pharmacist. Copyright 9350-9269 [employer]. Version: 21.. Revision Date: 05/09/2020. Emergency Awareness [...] Assistance with quitting is available by contacting 7-513-JJVYNOW. This is a free resource providing counseling, support, and referral. Or you may contact your personal physician. [place] Suicide Prevention Lifeline: The National Suicide Prevention [...] range between ( 0.0 and 7.0 ) Barton #: 0.65 K/uL -- Normal range between ( 0.16 and 1.00 ) Eos #: 0.01 x10(3)/uL -- Normal range between ( 0.00 and 0.80 ) Barton %: 9.2 % -- Normal range between [...] between ( 74 and 137 ) Patient Name:LAITH CORTEZ I have received and understand this information and was given the opportunity to ask questions. Patient/Warehouse Handler Name: Patient/Warehouse Handler Signature: Relationship to Patient: Clinician/Hospital Warehouse Handler Signature: Date: Electronically signed by [facility] Conversion Instant Printer Operator Cerner at 08/26/2022 1:45 PM CDT documented in this encounter Plan of Treatment Upcoming Encounters Date Type Department Care Team (Late st Contact Info) Description 04/20/2025 10:45 AM EST Office Visit [facility] Electrophysiology [address] [place] [phone] Nelda Mesa MD [address] [place] [address] [address] [place] [phone] 01/18/2026 10:45 AM EDT Office Visit [facility] - [place] [address] [facility] [address] [place] [address] Octavio Larsen MD [address] [place] [address] documented as of this encounter Visit Diagnoses Not on filedocumented in this encounter Care Teams Automatic Shirring Machine Operator Relationship Specialty Start Date End Date Balaji Rasmussen MD [address] [place] [address] PCP - General Family Medicine 05/10/22 documented as of this encounter
--- OUTSIDE RECORDS SUMMARY | 2025-03-10 10:27 | XMS_ITS | Encounter Summary ---
Author Organization [facility] ([place], [place], [place], [place], [place]) Address [address] [place] [address] Care Team Providers Care Wash Barrel Leader Name Role Phone Balaji Rasmussen MD Primary Care Provider [phone] Encounter Details Date Type Department Care Team (Late st Contact Info) Description 10/22/2018 Transcribed Document [facility] [place] [address] [place] [address] ProviderMahi MD [address] [place] [phone] Social History Tobacco Use Types Packs/Day Years Used Date Smoking Tobacco: Never Assessed Sex and Gender Information Value Date Recorded Sex Assigned at Not on file Legal Sex Male 5:42 PM CDT Gender Identity Not on file Sexual Orientation Not on file documented as of this encounter Miscellaneous Notes * Cerner Conversion Note - Mahi ProviderMD - 10/22/2018 8:00 AM CDT [facility] Main OR PACU Summary Primary Physician: MOSES MCKAY MD Finalized Date/Time: 10/22/18 15:29:26 Pt. Name: LAITH CORTEZ D.O.B./Sex: 1960 Male Med Rec #: [id number] Physician: MOSES MCKAY MD Financial #: [id number] Pt. Type: O Room/Bed: [facility]/1 Admit/Disch: 10/22/18 06:12:00 - Institution: [facility] Main OR PACU I Case Times Entry 1 In PACU I 10/22/18 13:50:00 Ready for PACU 10/22/18 15:05:00 Discharge Discharge from PACU 10/22/18 15:05:00 I Last Modified By: Alden Patel RN 10/22/18 15:29:14 Finalized By: Alden Patel RN Document Signatures Signed By: Alden Patel RN 10/22/18 15:29 Electronically signed by Meng [facility] Conversion Inside Sales Executive Cerner at 08/21/2022 2:50 PM CDT documented in this encounter Plan of Treatment Upcoming Encounters Date Type Department Care Team (Late st Contact Info) Description 04/20/2025 10:45 AM EST Office Visit [facility] Electrophysiology [address] [place] [phone] Diogo Mesa MD [address] [place] [address] [address] [place] [address] 01/18/2026 10:45 AM EDT Office Visit [facility] - [address] [place] [address] Octavio Larsen MD [address] [facility] [address] [place] [address] documented as of this encounter Visit Diagnoses Not on filedocumented in this encounter Care Teams Wash Barrel Leader Relationship Specialty Start Date End Date Balaji Rasmussen MD [address] [place] [address] PCP - General Family Medicine 05/10/22 documented as of this encounter
--- OUTSIDE RECORDS SUMMARY | 2025-03-10 10:27 | XMS_ITS | Encounter Summary ---
Author Organization [employer] ([place], [place], [place], [place], [place]) Address [address] [place] [address] Care Team Providers Care Oil Treater Name Role Phone Balaji Rasmussen MD Primary Care Provider +1 [phone] Encounter Details Date Type Department Care Team (Late st Contact Info) Description 10/22/2018 Transcribed Document [facility] [place] Family Medicine [facility] [place] [address] ProviderMahi MD [address] [place] [address] [id number] Social History Tobacco Use Types Packs/Day Years [...] From : Patient, Spouse Primary Language : Ivorian Preferred Communication Mode : Verbal Communication Barrier [...] Scale Risk Level : 25-45 Medium Risk [place] Fall Interventions : Adequate lighting, Assistive devices [...] 10/22/2018 07:06:58 EDT by VICENTA MELLO RN) Height and Weight, Clinical Dosing Height Source : Stated Height Entry Format : [place] Height, Feet : 6 ft(Converted to: 183 cm, 72 Inch) Height, Inches : 6 Inch(Converted to: 0 ft 6 Inch, 15.24 cm) Clinical Height : 198.12 cm Weight Source : Standing scale Weight Entry Format : [place] Clinical Dosing Weight : 107.73 kg Weight, Pounds : 237 lb Body Surface Area (BSA) : 2.43 m2 Body Mass Index : 27.4 kg/m2 (HI) [place] Body Weight : 90 kg Arnulfo Young [...] No Thoughts of Harming/Killing Yourself : No Arnulfo Young RN - 10/22/2018 15:34 EDT Sleep [...] Any Spiritual/Cultural Needs or Requests : No Religion Preference : Presybeterian (Disciples of Christopher) Arnulfo Young RN - [...] - 10/22/2018 15:34 EDT Electronically signed by [facility] Conversion Athletics Director Cerner at 08/21/2022 2:55 PM CDT documented in this encounter Plan of Treatment Upcoming Encounters Date Type Department Care Team (Late st Contact Info) Description 04/20/2025 10:45 AM EST Office Visit [facility] Electrophysiology [address] [place], [place] [phone] Diogo Mesa MD [address] [place] [address] [address] [place] [address] 01/18/2026 10:45 AM EDT Office Visit [facility] - [address] [place] [phone] Octavio Larsen MD [address] [facility] [address] [place] [address] documented as of this encounter Visit Diagnoses Not on filedocumented in this encounter Care Teams Oil Treater Relationship Specialty Start Date End Date Balaji Rasmussen MD [address] [place] [address] PCP - General Family Medicine 05/10/22 documented as of this encounter
--- OUTSIDE RECORDS SUMMARY | 2025-03-10 10:27 | XMS_ITS | Encounter Summary ---
Author Organization [employer] ([place], [place], [place], [place], [place]) Address [address] [place] [address] Care Team Providers Care Skin Fitter Name Role Phone Balaji Rasmussen MD Primary Care Provider +1 [phone] Encounter Details Date Type Department Care Team (Late st Contact Info) Description 12/01/2020 Transcribed Document [facility] [place] [address] [place] [address] ProviderMahi MD [address] [place] [address] Social History Tobacco Use Types Packs/Day Years Used Date Smoking Tobacco: Never Assessed Sex and Gender Information Value Date Recorded Sex Assigned at Not on file Legal Sex Male 5:42 PM CDT Gender Identity Not on file Sexual Orientation Not on file documented as of this encounter Miscellaneous Notes * Cerner Conversion Note - Mahi Hamm MD - 12/01/2020 10:51 AM CDT Patient Education [...] 05/25/2011 Document Revised: 07/14/2012 Document Reviewed: 05/25/2011 [employer]? Patient Information ?2013 [employer]. Atrial Fibrillation Atrial fibrillation is a type [...] these instructions at home: Medicines ??? Take ywgz-sci-vaeqzrj and prescription medicines only as told by [...] provider. Document Revised: 10/14/2019 Document Reviewed: 10/14/2019 [employer] Patient Education ? 2020 [employer] Cardiac Ablation, Care After This sheet gives [...] and water are not available, use hand drum stenciler. ? Change your dressing as told by [...] safe for you. General instructions ??? Take yqtk-nix-ofqokrf and prescription medicines only as told by [...] provider. Document Revised: 04/04/2018 Document Reviewed: 08/01/2017 [employer] Patient Education ? 2020 [employer] Cardiovascular Atrial Fibrillation Atrial fibrillation is a [...] these instructions at home: Medicines ??? Take zcui-tyx-cbsknyc and prescription medicines only as told by [...] provider. Document Revised: 10/14/2019 Document Reviewed: 10/14/2019 [employer] Patient Education ? 2020 [employer] Nutrition Heart-Healthy Eating Plan Heart-healthy meal planning [...] Fats and oils Meat fat, or shortening. [place] butter, hydrogenated oils, palm oil, coconut oil, [...] provider. Document Revised: 06/26/2018 Document Reviewed: 05/30/2018 [employer] Patient Education ? 2020 [employer] Pharmacology Aspirin and Your Heart Aspirin is [...] The two forms of aspirin are: ? Oow-jgelprz-bxssml.This type of aspirin does not have a coating and is absorbed quickly. This type of aspirin also comes in a chewable form. ? Enteric-coated. This type of aspirin has a coating that releases the medicine very slowly. Enteric-coated aspirin might cause less stomach upset than xpg-zmbnpzx-sizxnj aspirin. This type of aspirin should not [...] provider. Document Revised: 02/20/2018 Document Reviewed: 02/20/2018 [employer] Patient Education ? 2020 [employer] Procedures Cardiac Ablation, Care After This [...] and water are not available, use hand drum stenciler. ? Change your dressing as told by [...] safe for you. General instructions ??? Take evgj-vuq-ijesxrh and prescription medicines only as told by [...] provider. Document Revised: 04/04/2018 Document Reviewed: 08/01/2017 [employer] Patient Education ? 2020 [employer] Cardiac Ablation Cardiac ablation is a procedure [...] provider. Document Revised: 04/04/2018 Document Reviewed: 03/11/2017 [employer] Patient Education ? 2019 [employer] documented in this encounter Plan of Treatment Upcoming Encounters Date Type Department Care Team (Late st Contact Info) Description 04/20/2025 10:45 AM EST Office Visit [facility] Electrophysiology [address] [place] [address] Diogo Mesa MD [address] [facility] [address] [place] [id number] 01/18/2026 10:45 AM EDT Office Visit [facility] - Amina [facility] [address] [place] [address] Octavio Larsen MD [address] [facility] [address] [place] [phone] documented as of this encounter Visit Diagnoses Not on filedocumented in this encounter Care Teams Skin Fitter Relationship Specialty Start Date End Date Balaji Rasmussen MD [address] [place] [address] PCP - General Family Medicine 05/10/22 documented as of this encounter
--- OUTSIDE RECORDS SUMMARY | 2025-03-10 10:27 | XMS_ITS | Encounter Summary ---
Author Organization [employer] ([place], [place], [place], [place], [place]) Address [address] [place] [address] Care Team Providers Care Meat Cutter Name Role Phone Balaji Rasmussen MD Primary Care Provider [phone] [phone] Encounter Details Date Type Department Care Team (Late st Contact Info) Description 12/01/2020 Transcribed Document [facility] [place] [address] [place] [address] ProviderMahi MD [address] [place], [place] 397251 Social History Tobacco Use Types Packs/Day Years Used Date Smoking Tobacco: Never Assessed Sex and Gender Information Value Date Recorded Sex Assigned at Not on file Legal Sex Male 5:42 PM CDT Gender Identity Not on file Sexual Orientation Not on file documented as of this encounter Miscellaneous Notes * Cerner Conversion Note - Mahi ProviderMD - 12/01/2020 10:33 AM CDT UM Authorization Entered On: 12/01/2020 10:34 EDT Performed On: 12/01/2020 10:33 EDT by Amber Gutierrez Rn-Utilization Review Primary Insurance Authorization Authorization and Policy Numbers : Insurance 1 Health Plan: ANTHEM [employer]OPPO Policy Number: [id number] Authorization Number: [id number] Insurance Primary Name : ANTH HMOPPO Policy Number: [id number] Authorized Service Begin Date-Primary : 11/30/2020 EDT Historical Authorization Comments-Primary : No Authorization Comments Found Amber Gutierrez, Rn-Utilization Review - 12/01/2020 10:33 EDT Electronically signed by Meng [facility] Conversion Eyeglass Lens Grinder Cerner at 08/26/2022 1:52 PM CDT documented in this encounter Plan of Treatment Upcoming Encounters Date Type Department Care Team (Late st Contact Info) Description 04/20/2025 10:45 AM EST Office Visit [facility] Electrophysiology [address] [place] [phone] Diogo Mesa MD [address] [facility] [address] [place] [address] 01/18/2026 10:45 AM EDT Office Visit [facility] - [facility] [address] [place] [address] [address] [place] [address] Octavio Larsen MD [address] [facility] [address] [place] [address] documented as of this encounter Visit Diagnoses Not on filedocumented in this encounter Care Teams Meat Cutter Relationship Specialty Start Date End Date Balaji Rasmussen MD [address] [facility] [address] PCP - General Family Medicine 05/10/22 documented as of this encounter
--- OUTSIDE RECORDS SUMMARY | 2025-03-10 10:27 | XMS_ITS | Encounter Summary ---
Author Organization [employer] ([place], [place], [place], [place], [place]) Address [address] [place] [address] Care Team Providers Care Loin Trimmer Name Role Phone Balaji Rasmussen MD Primary Care Provider [phone] [phone] Encounter Details Date Type Department Care Team (Late st Contact Info) Description 10/22/2018 Transcribed Document [facility] [place] [address] [place] [address] ProviderMahi MD [address] [place] [address] [phone] Social History Tobacco Use Types Packs/Day Years [...] 0:34 EDT Pain Scale Intensity : 1 Cassandra Hamm, RN - 10/23/2018 0:34 EDT Image 4 - Images currently included in the form version of this document have not been included in the text rendition version of the form. documented in this encounter Plan of Treatment Upcoming Encounters Date Type Department Care Team (Late st Contact Info) Description 04/20/2025 10:45 AM EST Office Visit [facility] Electrophysiology [address] [place] [phone] Diogo Mesa MD [address] [place] [address] [address] [place] [id number] 01/18/2026 10:45 AM EDT Office Visit [facility] - [facility] [address] [facility] 300 [place] [address] Octavio Larsen MD [address] [facility] [address] [place] [address] documented as of this encounter Visit Diagnoses Not on filedocumented in this encounter Care Teams Loin Trimmer Relationship Specialty Start Date End Date Balaji Rasmussen MD [address] [place] [address] PCP - General Family Medicine 05/10/22 documented as of this encounter
--- OUTSIDE RECORDS SUMMARY | 2025-03-10 10:27 | XMS_ITS | Encounter Summary ---
Author Organization [employer] ([place], [place], [place], [place], [place]) Address [address] [place] [address] Care Team Providers Care Commercial Drone Software Developer Name Role Phone Balaji Rasmussen MD Primary Care Provider [phone] [phone] Encounter Details Date Type Department Care Team (Late st Contact Info) Description 12/01/2020 Transcribed Document [facility] [place] Family Medicine [facility] [place] [address] ProviderMahi MD [address] [place] [address] [phone] Social History Tobacco Use Types Packs/Day Years [...] Printed materials Teaching Evaluation : Verbalizes understanding OZIZE ZHAO CNA - 12/01/2020 11:46 EDT Electronically signed by [facility], [facility] Conversion Production Supply Equipment Tender Cerner at 08/26/2022 1:53 PM CDT documented in this encounter Plan of Treatment Upcoming Encounters Date Type Department Care Team (Late st Contact Info) Description 04/20/2025 10:45 AM EST Office Visit [facility] Electrophysiology [address] [place] [phone] Diogo Mesa MD [address] [facility] [address] [place] [address] 01/18/2026 10:45 AM EDT Office Visit [facility] - Amina [facility] [address] [facility] 300 [place] [address] Octavio Larsen MD [address] [facility] [address] [place] [address] documented as of this encounter Visit Diagnoses Not on filedocumented in this encounter Care Teams Commercial Drone Software Developer Relationship Specialty Start Date End Date Balaji Rasmussen MD [address] [place] [address] PCP - General Family Medicine 05/10/22 documented as of this encounter
--- OUTSIDE RECORDS SUMMARY | 2025-03-10 10:27 | XMS_ITS | Encounter Summary ---
Author Organization [employer] ([place], [place], [place], [place], [place]) Address [address] [place] [address] Care Team Providers Care Palm And Back Forger Name Role Phone Balaji Rasmussen MD Primary Care Provider [phone] [phone] Encounter Details Date Type Department Care Team (Late st Contact Info) Description 10/22/2018 Transcribed Document [facility] [place] [address] [place] [address] ProviderMahi MD [address] [place] [address] [phone] Social History Tobacco Use Types Packs/Day Years [...] On: 10/23/2018 9:12 EDT by MICHAELA CHRISTOPHER [facility] Clinical Interventions Clarify Drug Order : Yes MICHAELA CHRISTOPHER [facility] - 10/23/2018 9:12 EDT Clarify Drug Order Clarify Drug Order, Order : Co-Q 10 1000 mg Wednesdays. I s/w Mis RN 4IC, pt. to go home today - [facility] 0913 10/23/18 Clarify Drug Order, Value : 0 Dollar Clarify Drug Order, Time : 10 Minute(s) MICHAELA CHRISTOPHER W, [facility] - 10/23/2018 9:12 EDT Electronically signed by Meng [facility] Conversion Construction Controller Cerner at 08/21/2022 2:47 PM CDT documented in this encounter Plan of Treatment Upcoming Encounters Date Type Department Care Team (Late st Contact Info) Description 04/20/2025 10:45 AM EST Office Visit [facility] Electrophysiology [address] [place] [phone] [place] [address] [place] [address] [address] [place] [address] 01/18/2026 10:45 AM EDT Office Visit [facility] - [facility] [address] [facility] [address] [place] [address] Octavio Larsen MD [address] [facility] [address] [place] [address] documented as of this encounter Visit Diagnoses Not on filedocumented in this encounter Care Teams Palm And Back Forger Relationship Specialty Start Date End Date Balaji Rasmussen MD [address] [place] [address] PCP - General Family Medicine 05/10/22 documented as of this encounter
--- OUTSIDE RECORDS SUMMARY | 2025-03-10 10:27 | XMS_ITS | Encounter Summary ---
Author Organization [employer] ([place], [place], [place], [place], [place]) Address [address] [place] [address] Care Team Providers Care Carbon Furnace Operator Helper Name Role Phone Balaji Rasmussen MD Primary Care Provider [phone] -[phone] Encounter Details Date Type Department Care Team (Late st Contact Info) Description 10/23/2018 Transcribed Document [facility] [place] Family Medicine [address] [place] [address] ProviderMahi MD [address] [place] [address] [phone] Social History Tobacco Use Types Packs/Day Years [...] 19:54:37 Trans: 10/24/2018 00:45:13 Processed: 10/24/2018 09:48:27 [place] CC1: Shavon Ricci MD Electronically signed by [facility] Conversion Respiratory Assistant Cerner at 08/21/2022 2:52 PM CDT documented in this encounter Plan of Treatment Upcoming Encounters Date Type Department Care Team (Late st Contact Info) Description 04/20/2025 10:45 AM EST Office Visit [facility] Electrophysiology [address] [place] [address] [place] [address] [place] [address] [address] [place] [id number] 01/18/2026 10:45 AM EDT Office Visit [facility] - Amina [facility] AMINA [facility] [address] [place] [address] Octavio Larsen MD [facility] [address] [place] [address] [place] [address] documented as of this encounter Visit Diagnoses Not on filedocumented in this encounter Care Teams Carbon Furnace Operator Helper Relationship Specialty Start Date End Date Balaji Rasmussen MD [address] [place] [address] PCP - General Family Medicine 05/10/22 documented as of this encounter
--- OUTSIDE RECORDS SUMMARY | 2025-03-10 10:27 | XMS_ITS | Encounter Summary ---
Author Organization [employer] ([place], [place], [place], [place], [place]) Address [address] [place] [address] Care Team Providers Care Production Controller Name Role Phone Balaji Rasmussen MD Primary Care Provider +1 [phone] Encounter Details Date Type Department Care Team (Late st Contact Info) Description 10/23/2018 Transcribed Document [facility] [place] Family Medicine [address] [place] [address] ProviderMahi MD [address] [place] [phone] Social History Tobacco Use Types Packs/Day Years [...] Balaji Saunders Rn - 10/23/2018 8:17 EDT documented in this encounter Plan of Treatment Upcoming Encounters Date Type Department Care Team (Late st Contact Info) Description 04/20/2025 10:45 AM EST Office Visit [facility] Electrophysiology [address] [place] [address] Diogo Mesa MD [address] [facility] [address] [place], [place] [id number] 01/18/2026 10:45 AM EDT Office Visit [facility] - [address] [place] [address] Octavio Larsen MD [address] [facility] [address] [place] [address] documented as of this encounter Visit Diagnoses Not on filedocumented in this encounter Care Teams Production Controller Relationship Specialty Start Date End Date Balaji Rasmussen MD [address] [place] [address] PCP - General Family Medicine 05/10/22 documented as of this encounter
--- OUTSIDE RECORDS SUMMARY | 2025-03-10 10:27 | XMS_ITS | Encounter Summary ---
Author Organization [employer] ([place], [place], [place], [place], [place]) Address [address] [place] [address] Care Team Providers Care Program Support Specialist Name Role Phone Balaji Rasmussen MD Primary Care Provider +1 [phone] Encounter Details Date Type Department Care Team (Late st Contact Info) Description 10/22/2018 Transcribed Document [facility] [place] Family Medicine [facility] [place] [address] ProviderMahi MD [address] [place] [address] [phone] Social History Tobacco Use Types Packs/Day Years [...] Source : Stated Height Entry Format : [place] Height, Feet : 6 ft(Converted to: 183 cm, 72 Inch) Height, Inches : 6 Inch(Converted to: 0 ft 6 Inch, 15.24 cm) Clinical Height : 198.12 cm Weight Source : Standing scale Weight Entry Format : [place] Clinical Dosing Weight : 107.73 kg Weight, Pounds : 237 lb Body Surface Area (BSA) : 2.43 m2 Body Mass Index : 27.4 kg/m2 (HI) [employer] Body Weight : 90 kg VICENTA MELLO [...] Any Spiritual/Cultural Needs or Requests : No Yazdanism Preference : Gnosticism (Disciples of Christopher) VICENTA MELLO RN - 10/22/2018 7:05 EDT Teaching/Learning [...] Obtained From : Patient Primary Language : [place] Preferred Communication Mode : Verbal Communication Barrier [...] Scale Risk Level : 0-24 Low Risk [place] Fall Interventions : Adequate lighting, Bed in [...] the text rendition version of the form. [place] Coma [place] Best Motor Response : Obey commands [place] Best Verbal Response : Oriented [place] Eye Opening Response : Spontaneous [place] Coma Score : 15 VICENTA MELLO RN - 10/22/2018 7:05 EDT Electronically signed by Meng, [facility] Conversion Advertising Sales Assistant Cerner at 08/21/2022 2:54 PM CDT documented in this encounter Plan of Treatment Upcoming Encounters Date Type Department Care Team (Late st Contact Info) Description 04/20/2025 10:45 AM EST Office Visit [facility] Electrophysiology [address] [place] [phone] [place] [address] [place] [address] [address] [place] [address] 01/18/2026 10:45 AM EDT Office Visit [facility] - [facility] [address] [facility] 300 [place] [address] Octavio Larsen MD [address] [facility] [address] [place] [address] documented as of this encounter Visit Diagnoses Not on filedocumented in this encounter Care Teams Program Support Specialist Relationship Specialty Start Date End Date Balaji Rasmussen MD [address] [place] [address] PCP - General Family Medicine 05/10/22 documented as of this encounter
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
--- OUTSIDE RECORDS SUMMARY | 2025-03-10 10:27 | XMS_ITS | Encounter Summary ---
Author Organization [employer] ([place], [place], [place], [place], [place]) Address [address] [place] [address] Care Team Providers Care Emergency Medical Technician Basic Name Role Phone Balaji Rasmussen MD Primary Care Provider +1 [phone] Encounter Details Date Type Department Care Team (Late st Contact Info) Description 12/01/2020 Transcribed Document [facility] [place] Family Medicine [facility] [place] [address] ProviderMahi MD [address] [place] [address] [id number] Social History Tobacco Use Types Packs/Day Years [...] [facility] Discharge Note: EP Primary Console Attendant: PCP: Jose Leavitt Consults: NONE History of Present Illness: Patient is a 60 year old male was seen by Dr Simms with a PMH significant for Paroxysmal Afib [...] aspirin which is a possibility since his [id number] is 0 but patient wants to stay [...] 1. atrial fibrillation Surgical History: History of [place] Holes For Evacuation Of Subdural Hematoma ?? [...] Normal range of motion. Integumentary: Warm, Dry, Patriot. Bilateral groins without hematoma or bleeding. Z [...] PCP in 5 - 7 days. Primary Console Attendant in [address] Mesa in 1 month Patient has been instructed on and verbalized an understanding of the above discharge instructions. Plan has been discussed and is in agreement with Dr. Bonita Herbert RN documenting for Dr. Mesa Electronically signed by Meng [facility] Conversion Test Rack Operator Cerner at 08/26/2022 1:16 PM CDT documented in this encounter Plan of Treatment Upcoming Encounters Date Type Department Care Team (Late st Contact Info) Description 04/20/2025 10:45 AM EST Office Visit [facility] Electrophysiology [address] [place] [address] Nelda Mesa MD [address] [facility] [address] [place] [address] 01/18/2026 10:45 AM EDT Office Visit [facility] - [address] [place] [address] Octavio Larsen MD [address] [place] [address] documented as of this encounter Visit Diagnoses Not on filedocumented in this encounter Care Teams Emergency Medical Technician Basic Relationship Specialty Start Date End Date Balaji Rasmussen MD [address] [place] [address] PCP - General Family Medicine 05/10/22 documented as of this encounter
--- OUTSIDE RECORDS SUMMARY | 2025-03-10 10:27 | XMS_ITS | Referral Summary ---
Author Organization [employer] ([place], [place], [place], [place], [place]) Address [address] [place] [address] Care Team Providers Care Programs Director Name Role Phone Balaji Rasmussen MD Primary Care Provider [phone] Encounters Date Type Department Care Team Description 01/19/2025 Travel 01/19/2025 10:45 AM EDT Office Visit [facility] - [place] [address] [place] [address] Octavio Larsen MD Malignant neoplasm of ascending colon (HCC) 01/08/2025 Orders Only [facility] [place] [address] [place] [address] Provider, MD Mahi from Last 3 Months Allergies Active Allergy Reactions Criticality Noted Date [...] by mouth twice daily 90 tablet 3 5 Active ciclopirox (PENLAC) 8 % solution APPLY SOLUTION TOPICALLY TO ALL TOENAILS ONCE DAILY. CLEAN OFF WITH ALCOHOL EVERY 7TH DAY. 4 Active urea 41 % crea Activ e Active Problems Problem Noted Date Diagnosed Date [...] Date Billy rded Speak language other than Citizen [place] at home Not on file 05/17/2023 Want [...] 18 01/19/2025 10:38 AM EDT Oxygen Saturation 98% 04/21/2024 3:14 PM EST Inhaled Oxygen Concentration - - Weight 100.2 kg (221 lb) 01/19/2025 10:38 AM EDT Height 198.1 cm (6' 6 ) 01/19/2025 10:38 AM EDT Body Mass Index 25.54 01/19/2025 10:38 AM EDT Plan of Treatment Upcoming Encounters Date Type Department Care Team (Late st Contact Info) Description 04/20/2025 10:45 AM EST Office Visit [facility] Electrophysiology [address] [place] [address] [place] [address] [place] [address] [address] [place] [address] 01/18/2026 10:45 AM EDT Office Visit [facility] - [address] [place] [address] Octavio Larsen MD [address] [facility] [address] [place] [address] Procedures Procedure Name Priority Date/Time Associated Diagnosis Comments HEPATIC FUNCTION PANEL Routine 10:25 AM EDT Malignant neoplasm of ascending colon (HCC) ONOCOLOGY CHEMISTRY PANEL Routine 01/19/2025 10:25 AM EDT Malignant neoplasm of ascending colon (HCC) CBC W/ AUTO DIFF Routine 01/19/2025 10:2 5 AM EDT Malignant neoplasm of ascending colon (HCC) CARCINOEMBRYONIC ANTIGEN (CEA) Routine 01/19/2025 10:25 AM EDT Malignant neoplasm of ascending colon (HCC) EXTERNAL IMAGING - CT Routine 01/06/2025 2:10 PM EDT from Last 3 Months Results * (ABNORMAL) CBC with automated diff (01/19/2025 [...] Res ult [facility] [address] [place] [address], [facility] [phone] * (ABNORMAL) Oncology Chemistry Panel (01/19/2025 10:25 [...] 10:25 AM EDT 01/19/2025 10:37 AM EDT Octavio Larsen MD LAB BLOOD ORDERABLES Final Res ult Performing Organization Address City/[facility]/ZIP Co de Phone Number [facility] [address] [place] [address], [facility] [phone] * Carcinoembryonic Antigen (CEA) (01/19/2025 10:25 AM EDT) CEA, SERUM <1.73 0.00 - 5.00 ng/mL 01/19/2025 3:18 PM EDT [facility] Comment:[employer] Alinity i mendoza miluminescent immunoassay was used to obtain results. Results determined by assays using different manufacturers or methods may not be comparable. Blood Venipuncture / Unknown 01/19/2025 10:25 AM EDT 01/19/2025 10:37 AM EDT Octavio Larsen MD LAB BLOOD ORDERABLES Final Res ult [facility] [address] [phone] * (ABNORMAL) Hepatic function panel (01/19/2025 10:25 AM EDT) Pathologist [facility] Protein, Total 7.2 6.4 - 8.2 gm/dL 01/19/2025 11:40 AM EDT [facility] Albumin 3.4 3.4 - 5.0 g/dL [...] AM [facility] Comment:Sviral has become aware of sulfasalazine and sulfapyridine [...] AM [facility] Comment:Sviral has become aware of sulfasalazine and sulfapyridine [...] EDT 01/19/2025 10:37 AM EDT us Octavio Larsne MD LAB BLOOD ORDERABLES Final Res ult [facility] [address] [phone] * EXTERNAL IMAGING - CT (01/06/2025 2:10 PM EDT) Anatomical Region Laterality Modality Other us Historical Provider HEALTH MAINTENANCE Final Result from Last 3 Months Insurance [facility] [place] [id number] [id number] BLUE CROSS/BLUE SHIELD Care Teams Programs Director Relationship Specialty Start Date End Date Balaji Rasmussen MD [address] [place] [address] PCP - General Family Medicine 05/10/22
--- OUTSIDE RECORDS SUMMARY | 2025-03-10 10:27 | XMS_ITS | Encounter Summary ---
Author Organization [employer] ([place], [place], [place], [place], [place]) Address [address] [place] [address] Care Team Providers Care Mobility Manager Name Role Phone Balaji Rasmussen MD Primary Care Provider [phone] [phone] Encounter Details Date Type Department Care Team (Late st Contact Info) Description 10/23/2018 Transcribed Document [facility] [place] [address] [place] [address] ProviderMahi MD [address] [place] [address] [id number] Social History Tobacco Use Types Packs/Day Years [...] On: 10/23/2018 11:11 EDT by Balaji Saunders Striker Off Documentation Discharge Date/Time : 10/23/2018 11:11 EDT [...] materials Teaching Evaluation : Verbalizes understanding Balaji Saunders Rn - 10/23/2018 11:11 EDT documented in this encounter Plan of Treatment Upcoming Encounters Date Type Department Care Team (Late st Contact Info) Description 04/20/2025 10:45 AM EST Office Visit [facility] Electrophysiology [address] [place] [address] [place] [address] [place] [address] [address] [place], [place] [id number] 01/18/2026 10:45 AM EDT Office Visit [facility] - [address] [place] [address] Octavio Larsen MD [address] [facility] [address] [place] [address] documented as of this encounter Visit Diagnoses Not on filedocumented in this encounter Care Teams Mobility Manager Relationship Specialty Start Date End Date Balaji Rasmussen MD [address] [place] [address] PCP - General Family Medicine 05/10/22 documented as of this encounter
--- OUTSIDE RECORDS SUMMARY | 2025-03-10 10:27 | XMS_ITS | Clinical Summary ---
Author Organization [employer] ([place], [place], [place], [place], [place]) Address [address] [place] [address] Care Team Providers Care Low Voltage Electrician Name Role Phone Balaji Rasmussen MD Primary Care Provider [phone] [phone] Allergies Active Allergy Reactions Criticality Noted Date [...] Noted Date Diagnosed Date Atrial fibrillation 04/25/2020 Encounters Date Type Department Care Team Description 01/19/2025 10:45 AM EDT Office Visit [facility] - [place] [address] [place] [address] Octavio Larsen MD Malignant neoplasm of ascending colon (HCC) 01/19/2025 Travel 01/08/2025 Orders Only [facility] [place] [address] [place] [address] Provider, MD Mahi from Last 3 Months Social History Tobacco Use Types Packs/Day Years [...] Date Billy rded Speak language other than Micron[place] at home Not on file 05/17/2023 Want [...] Description 04/20/2025 10:45 AM EST Office Visit [facility] Electrophysiology [address] [place] [address] Diogo Mesa MD [address] [facility] [address] [place], [place] [id number] 01/18/2026 10:45 AM EDT Office Visit [facility] - [address] [place] [address] Octavio Larsen MD [address] [facility] [address] [place] [address] Health Maintenance Due Date Last Done Comments CT Colonography 1960 Colonoscopy 1960 Colorectal Cancer Screening 1960 FOBT/FIT 1960 Fit-DNA (Cologuard) 1960 Sigmoidoscopy 1960 Depression Screening (12+) 1972 HIV Screening 10/05/1975 Hepatitis C Screening 1978 Lipid Panel 10/05/1995 Pneumococcal 50+ years (2 of 2 - PCV) 09/18/2022 09/18/2021 COVID-19 VACCINE ( - 2024-2 6 season) 2025 02/14/2022, 08/01/2021, 02/22/2021, Additional history exists Influenza Vaccine (#1) 2025 3, 02/11/2017, 02/01/2016, Additional history exists Tobacco Cessation Counseling and Screening (12+) 01/19/2026 01/19/2025 DTAP/TDAP/TD VACCINES (4 - T d or Tdap) 08/21/2031 08/20/2021, 02/06/2018, 07/08/1996 Respiratory Syncytial Virus (RSV) Adult or (1 - 1-dose 75+ series) 10/05/2035 Shingles Vaccine (Zoster) Completed 07/02/2020, 05/2019 Procedures Procedure Name Priority Date/Time Associated Diagnosis [...] Blast? Flag noted Atypical Lymph flag noted Octavio Larsen MD LAB BLOOD ORDERABLES Final Res ult [facility] [address] [place] [address] [phone] * (ABNORMAL) Oncology Chemistry Panel (01/19/2025 10:25 [...] ult [facility] [address] [place] [address] [phone] * Carcinoembryonic Antigen (CEA) (01/19/2025 10:25 AM EDT) [facility] CEA, SERUM <1.73 0.00 - 5.00 ng/mL 01/19/2025 3:18 PM EDT [facility] Comment:[employer] Alinity i mendoza miluminescent immunoassay was used to obtain results. Results determined by assays using different manufacturers or methods may not be comparable. Blood Venipuncture / Unknown 01/19/2025 10:25 AM EDT 01/19/2025 10:37 AM EDT us Octavio Larsen MD LAB BLOOD ORDERABLES Final Res ult [facility] [address] [phone] * (ABNORMAL) Hepatic function panel (01/19/2025 10:25 AM EDT) [facility] Protein, Total 7.2 6.4 - 8.2 gm/dL 01/19/2025 11:40 AM EDT [facility] Albumin 3.4 3.4 - 5.0 g/dL 01/19/2025 11:40 AM EDT [facility] Total Bilirubin 0.4 0.2 - 1.3 mg/dL 01/19/2025 11:40 AM EDT [facility] Bilirubin, Direct 0.1 0.0 - 0.2 mg/dL 01/19/2025 11:40 AM EDT [facility] Alkaline Phosphatase 76 27 - 136 U/L 01/19/2025 11:40 AM EDT [facility] Globulin 3.8 1.5 - 4.5 g/dL 01/19/2025 11:40 AM EDT [facility] A/G Ratio 0.9(L) 1.1 - 2.5 01/19/2025 11:40 AM EDT [facility] AST 22 5 - 37 U/L 01/19/2025 11:40 AM EDT [facility] Comment:[employer]pick has become aware of sulfasalazine and sulfapyridine [...] 12 - 78 U/L 01/19/2025 11:40 AM EDT [facility] Comment:Toothpick has become aware of sulfasalazine and sulfapyridine [...] ORDERABLES Final Res ult Performing Organization Address City/State/[facility] Co de Phone Number [facility] [address] [phone] * EXTERNAL IMAGING - CT (01/06/2025 2:10 PM EDT) Anatomical Region Laterality Modality Other Historical Provider HEALTH MAINTENANCE Final Result from Last 3 Months Insurance BLUE CROSS/BLUE SHIELD Care Teams Low Voltage Electrician Relationship Specialty Start Date End Date Balaji Rasmussen MD [address] [place] [address] PCP - General Family Medicine 05/10/22
--- NOTE | 2025-03-10 10:28 | XR_ITS ---
FINAL REPORT CLINICAL HISTORY: left shoulder pain COMPARISON: 07/17/2018 FINDINGS: LEFT SHOULDER Two views were obtained. There is no fracture or dislocation. There is mild degenerative joint disease. No soft tissue abnormality is identified. IMPRESSION: Mild degenerative joint disease. Reviewed, Interpreted and Dictated by Barbara Horton MD Transcribed by Alfreda Bhakta Authenticated and [facility]
== END 2025-03-10 23:59 | disposition home or self-care (01) ==
LOC: RAD 10:15
PROVIDERS: PCP Family Medicine; Visit Provider Physician Assistant
DX: M19.012 Primary osteoarthritis, left shoulder (principal)
CPT/HCPCS: 73030